=== PATIENT | male | born 1960 | race Caucasian/White ===

== ENCOUNTER 2023-03-20 12:01 | Outpatient (OUT) | payer OTHER, SELFPAY ==
[2023-03-20 13:12] LABS: Prostate Specific Antigen Dx 1.83 ng/mL (<=4.00)
== END 2023-03-20 12:02 | disposition home or self-care (01) ==
LOC: LAB 12:06
PROVIDERS: PCP Internal Medicine
DX: R97.20 Elevated prostate specific antigen [PSA] (principal)
CPT/HCPCS: 36415; 84153

== ENCOUNTER 2023-07-19 08:10 | Outpatient (OUT) | payer OTHER, SELFPAY ==
[2023-07-19 08:32] LABS: Basophils Percent Auto 0.6 % (0.2-2.0); Eosinophils Absolute Auto 0.2 10^3/uL (0.0-0.7); Eosinophils Percent Auto 3.2 % (0.9-7.0); Hematocrit 44.7 % (42.0-54.0); Hemoglobin 15.3 g/dL (14.0-18.0); Immature Granulocytes Abs Auto 0.01 10^3/uL (0.00-0.03); Immature Granulocytes Pct Auto 0.2 % (0.0-0.5); Lymphocytes Absolute Auto 2.2 10^3/uL (1.2-3.8); Lymphocytes Percent Auto 41.3 % (20.5-60.0); Mean Corpuscular HGB Conc 34.2 g/dL (29.9-35.2); Mean Corpuscular Hemoglobin 32.4 pg (25.9-34.0); Mean Corpuscular Volume 94.7 fL (80.0-94.0); Mean Platelet Volume 10.2 fL (9.5-13.5); Monocytes Absolute Auto 0.5 10^3/uL (0.3-0.8); Monocytes Percent Auto 9.9 % (1.7-12.0); Neutrophils Absolute Auto 2.4 10^3/uL (1.4-6.5); Neutrophils Percent Auto 44.8 % (43.0-75.0); Platelet Count 210 10^3/uL (150-450); Red Blood Count 4.72 10^6/uL (4.70-6.10); Red Cell Distribution Width 13.1 % (11.0-15.0); White Blood Count 5.4 10^3/uL (4.0-11.0)
[2023-07-19 09:07] LABS: Alanine Aminotransferase 40 U/L (16-63); Albumin Level 3.6 g/dL (3.4-5.0); Alkaline Phosphatase 83 U/L (46-116); Anion Gap 11.1; Aspartate Amino Transferase 15 U/L (15-37); BUN Creatinine Ratio 16.7; Bilirubin Total 1.5 mg/dL (0.2-1.0); Calcium 8.9 mg/dL (8.5-10.1); Carbon Dioxide 29.8 mmol/L (21.0-32.0); Chloride 102 mmol/L (98-107); Chol HDL Ratio 2.8; Cholesterol 151 mg/dL (<=200); Estimated GFR (African America >60 (>=60); Estimated GFR (Non-African Ame >60 (>=60); Globulin 3.7 g/dL; Glucose 106 mg/dL (74-106); HDL Cholesterol 54 mg/dL (40-60); LDL Cholesterol Calculated 74.2 mg/dL; Potassium 3.9 mmol/L (3.5-5.1); Sodium 139 mmol/L (136-145); Total Protein 7.3 g/dL (6.4-8.2); Triglycerides 114 mg/dL (<=150); VLDL CHOLESTEROL 22.8 mg/dL
== END 2023-07-19 08:11 | disposition home or self-care (01) ==
PROVIDERS: PCP Internal Medicine; Visit Provider Internal Medicine
DX: Z00.00 Encounter for general adult medical examination without abnormal findings (principal)
CPT/HCPCS: 36415; 80053; 80061; 85025; G0103

== ENCOUNTER 2024-03-19 12:15 | Outpatient (OUT) | payer OTHER, SELFPAY ==
--- OUTSIDE RECORDS SUMMARY | 2024-03-19 12:21 | XMS_ITS | CCD ---
Author Organization [facility] Care Team Providers Care Traffic Supervisor Name Role Phone Denise Salas Unavailable CHUCK, DR CLARK Admitting Unavailable BALL, DR CLARK Primary Care Unavailable BALL, DR CLARK Consulting Unavailable BALL, DR CLARK Attending Unavailable ELIN, DR DARIO Munson Consulting Unavailable CHUCK, DR CLARK Admitting Unavailable BALL, DR CLARK Primary Care Unavailable CHUCK, DR CLARK Consulting Unavailable BALL, DR CLARK Attending Unavailable HARDING, DR MCCLOUD Admitting Unavailable HARDING, DR MCCLOUD Consulting Unavailable HARDING, DR MCCLOUD Attending Unavailable BALL, DR CLARK Primary Care Unavailable CHUCK, DR CLARK Attending Unavailable BALL, DR CLARK Admitting Unavailable CHUCK, DR CLARK Primary Care Unavailable DO Satish Woods Primary Care Provider DENZEL Salas-C Denise Hudson Attending Provider Satish Woods Unavailable SATISH WOODS Primary Care Physician Jonathan HARDING Attending Unavailable Jonathan HARDING Attending Unavailable Roldan Lowery Unavailable DO Satish Woods Primary Care Provider [phone] MD Alex Blevins Attending Provider [phone] DO Satish Woods Primary Care Provider [phone] MD Alex Blevins Attending Provider [phone] Alex Blevins Attending Unavailable Alex Blevins Admitting Unavailable Satish Woods Primary Care Unavailable Tyler Tejada Admitting Unavailabl e Satish Woods Primary Care Unavailable Tyler Tejada Attending Unavailabl e Allergies Allergy Classification Reported Allergen(s) Allergy Type Date of Onset Reaction(s) Facility (1 source) No Known Medication Allergies; Translations: [No Known Medication Allergies] Propensity to adverse reactions (disorder) [facility] Repository (1 source) patient allergy list reviewed by nurse or physicia Propensity to adverse reactions 5 Comment:Done [employer] Other Medications Current Medications Medication Drug Class(es) Dates Sig (Normalized) Sig (Original) aspirin 81 mg oral tablet (14 sources) Platelet Aggregation Inhibitor, Nonsteroidal Anti-inflammatory Drug Start: 11-03-2020 take 81 mg by mouth once daily Aspirin Active 81 MG PO Daily November 03, 2020 1:00am Start: 02-07-2020 aspirin 81 mg Chew Tab mg tab(s), Chewed, Daily, Refills(s) 0 Start Date: 02/07/20 Status: Ordered atorvastatin 40 mg oral tablet (14 sources) HMG-CoA Reductase Inhibitor Start: 02-06-2020 take 40 mg by mouth once daily Atorvastatin Active 40 MG PO Daily November 03, 2020 1:00am citric acid 68.6 MG/ML / magnesium oxide 20 MG/ML / picosulfate sodium 0.0571 MG/ML Oral Solution [Clenpiq] (2 sources) Start: 08-15-2023 take 1 dose by mouth twice daily in the evening Clenpiq 10-3.5-12 MG-GM -GM/175ML 175 mL the first dose at 3:00 pm and 175 ml second dose at 9:00 pm Orally twice a day for 1 days PLEASE CHECK ALLERGIES Jul, Active clenpiq 10-3.5-12 mg-gm -gm/175ml solution (2 sources) Start: 08-15-2023 take 1 dose by mouth twice daily in the evening Clenpiq 10-3.5-12 MG-GM -GM/175ML 175 mL the first dose at 3:00 pm and 175 ml second dose at 9:00 pm Orally twice a day for 1 days PLEASE CHECK ALLERGIES Jul, Active eye vitamin (1 source) Start: 02-06-2020 eye vitamin ey e vitamin Start Date: 02/06/20 Status: Ordered Fish Oil + D3 7921-3486 MG-UNIT (9 sources) Start: 07-30-2020 take 1 capsule by mouth three times daily Fish Oil + D3 9644-7251 MG-UNIT 1 capsule Orally Three times a day Jul, Active Start: 07-30-2020 take 1 capsule by [facility] three times daily Fish Oil + D3 0184-6408 MG-UNIT 1 capsule Orally Three times a day for 30 day(s) Jul, Active Fish Oils (1 source) Start: 02-06-2020 Fish Oil Oral, Refill(s) 0 Start Date: 02/06/20 Status: Ordered ICaps - (9 sources) Start: 07-30-2020 ICaps - as dir ected Orally Jul, Active Gzrtp-7w-Bsz-Epa-Fish Oil-D3 (Fish Oil-Vit D3) 360 mg-1,200 mg -1,000 unit Capsule (4 sources) Start: 11-03-2020 take 1 capsule by mouth three times daily Fuapy-7b-Pqf-Epa-Fish Oil-D3 (Fish Oil-Vit D3) 360 mg-1,200 mg -1,000 unit Capsule Active 1 CAP PO Three times daily November 03, 2020 12:00am Start: 11-03-2020 take 1 capsule by [facility] three times daily Pnoen-1q-Rbv-Epa-Fish Oil-D3 (Fish Oil-Vit D3) 360 mg-1,200 mg -1,000 unit Capsule Active 1 CAP PO Three times daily November 03, 2020 1:00am Xkkn-D1-L-C-Xgjbyb-Weeyvtc-M in (Icaps) 3,069-1-795-75 vgzj-ql-pu-unit Tablet Extended Release (4 sources) Start: 11-03-2020 take 1 tablet by mouth once daily Qtxm-P7-M-E-Nahoot-Krmvetl-Min (Icaps) 3,375-0-982-75 owvr-bp-jb-unit Tablet Extended Release Active 1 TAB PO Daily November 03, 2020 12:00am Start: 11-03-2020 take 1 tablet by [facility] once daily Hfcv-E5-J-Q-Rovtzr-Yjiuful-Min (Icaps) 3,684-3-457-75 ptsx-yj-sc-unit Tablet Extended Release Active 1 TAB PO Daily November 03, 2020 1:00am Completed/Discontinued Medications Medication Drug Class(es) Dates Sig (Normalized) Sig (Original) clopidogrel 75 mg oral tablet (13 sources) P2Y12 Platelet Inhibitor Start: 11-03-2020 End: 09-21-2023 take 75 mg by mouth once daily Clopidogrel Discontinued 75 MG PO Daily 180 180 November 03, 2020 1:00am September 21, 2023 2:10pm Problems Active Problems Problem Classification Problem Date Documented Da te Episodic/Chronic Allergic reactions (1 source) Contact dermatitis due to plants; Translations: [Contact dermatitis and other eczema due to plants (except food)] Episodic Disorders of lipid metabolism (11 sources) Hyperlipidemia; Translations: [Mixed hyperlipidemia] Onset: 04-20-2016 02-06-2020 Chronic Essential hypertension (2 sources) Benign essential hypertension; Translations: [Essential hypertension, benign] Onset: 04-20-2016 Chronic Hyperplasia of prostate (7 sources) Benign prostatic hyperplasia without lower urinary tract symptoms; Translations: [Benign prostatic hypertrophy without outflow obstruction] Onset: 01-31-2017 Chronic Osteoarthritis (1 source) Arthritis 02-06-2020 Chronic Other acquired deformities (1 source) Contracture of left elbow joint; Translations: [Contracture, 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 Other acquired deformities (1 source) Contracture of right elbow joint; Translations: [Contracture, right elbow] Chronic Other aftercare (1 source) 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 Episodic Other circulatory disease (4 sources) Other specified symptoms and signs involving the circulatory and respiratory systems; Translations: [OTH SPEC SX SIGNS INVLV CIRC RS] Onset: 08-01-2022 Episodic Other circulatory disease (1 source) Cardiovascular symptoms; Translations: [Other specified symptoms and signs involving the circulatory and respiratory systems] Episodic Other circulatory disease (1 source) Elevated blood-pressure reading without diagnosis of hypertension; Translations: [Elevated blood-pressure reading, without diagnosis of hypertension] Episodic Other circulatory disease (1 source) Elevated blood-pressure reading, without diagnosis of hypertension Episodic Other connective tissue disease (1 source) Disorder of muscle; Translations: [Other specified disorders of muscle] Episodic Other nervous system disorders (1 source) Carpal tunnel syndrome; Translations: [Carpal tunnel syndrome, bilateral upper limbs] Chronic Other nervous system disorders (1 source) Paresthesia; Translations: [Paresthesia of skin] Episodic Other non-traumatic joint disorders (1 source) Arthralgia of the upper arm; Translations: [Pain in right elbow] Episodic Other nutritional; endocrine; and metabolic disorders (1 source) Obese class I; Translations: [Body mass index 33.0-33.9, adult] Onset: 11-23-2016 Chronic Other nutritional; endocrine; and metabolic disorders (2 sources) Body mass index 30+ - obesity; Translations: [Body mass index 30.0-30.9, adult] Onset: 11-23-2016 Chronic Other nutritional; endocrine; and metabolic disorders (2 sources) Obesity; Translations: [Obesity, unspecified] Onset: 11-23-2016 Chronic Other nutritional; endocrine; and metabolic disorders (1 source) Simple obesity ; Translations: [Other obesity due to excess calories] Chronic Other screening for suspected conditions (not mental disorders or infectious disease) (6 sources) Elevated prostate specific antigen [PSA]; Translations: [Raised prostate specific antigen] Onset: 03-02-2022 Episodic Peripheral and visceral atherosclerosis (20 sources) Intermittent claudication; Translations: [Peripheral vascular disease, unspecified] Onset: 12-02-2021 Resolved: 12-02-2021 Chronic Substance-related disorders (7 sources) Tobacco user; Translations: [Nicotine dependence, cigarettes, in remission] Chronic Unclassified (1 source) Drug therapy finding 02-07-2020 Unclassified (1 source) Encounter for screening for malignant neoplasm of colon; Translations: [Encounter for screening for malignant neoplasm of colon] Onset: 09-22-2023 Past or Other Problems Problem Classification Problem Date Documented Date Episodic/Chronic Bacterial infection; unspecified site (1 source) Streptococcus pyogenes infection; Translations: [Streptococcus infection in conditions classified elsewhere and of unspecified site, group A] Onset: 11-23-2016 Episodic Headache; including migraine (1 source) Headache; Translations: [Headache] Onset: 06-17-2017 Episodic Intracranial injury (1 source) Concussion with no loss of consciousness; Translations: [Concussion with no loss of consciousness] Onset: 06-16-2017 Episodic Joint disorders and dislocations; trauma-related (2 sources) Dislocations, sprains and strains involving multiple regions of lower limb(s); Translations: [Sprain and strain of unspecified site of knee and leg] Onset: 03-30-2015 Episodic Malaise and fatigue (1 source) Malaise and fatigue; Translations: [Other malaise and fatigue] Onset: 04-20-2016 Episodic Nonspecific chest pain (1 source) Chest pain; Translations: [Chest pain, unspecified] Onset: 04-20-2016 Episodic Other diseases of veins and lymphatics (1 source) Peripheral venous insufficiency; Translations: [Unspecified venous (peripheral) insufficiency] Onset: 04-20-2016 Episodic Other ear and sense organ disorders (1 source) Tinnitus; Translations: [Unspecified tinnitus] Onset: 06-17-2017 Episodic Other liver diseases (1 source) Elevated levels of transaminase & lactic acid dehydrogenase; Translations: [Nonspecific elevation of levels of transaminase or lactic acid dehydrogenase (LDH)] Onset: 08-28-2016 Episodic Other lower respiratory disease (1 source) Dyspnea; Translations: [Other dyspnea and respiratory abnormalities] Onset: 04-20-2016 Episodic Other non-traumatic joint disorders (1 source) Arthralgia of the lower leg; Translations: [Pain in joint, lower leg] Onset: 06-12-2015 Episodic Other nutritional; endocrine; and metabolic disorders (1 source) Abnormal weight gain; Translations: [Abnormal weight gain] Onset: 04-20-2016 Episodic Other skin disorders (1 source) Generalized hyperhidrosis; Translations: [Generalized hyperhidrosis] Onset: 04-20-2016 Episodic Other upper respiratory infections (1 source) Acute maxillary sinusitis; Translations: [Acute maxillary sinusitis] Onset: 11-23-2016 Episodic Otitis media and related conditions (1 source) Eustachian tube salpingitis; Translations: [Unspecified Eustachian salpingitis] Onset: 08-02-2018 Episodic Residual codes; unclassified (1 source) Edema; Translations: [Edema] Onset: 04-20-2016 Episodic Screening and history of mental health and substance abuse codes (3 sources) H/O: Disorder; Translations: [Personal history of nicotine dependence] Onset: 01-31-2017 Episodic Spondylosis; intervertebral disc disorders; other back problems (1 source) Brachial radiculitis; Translations: [Brachial neuritis or radiculitis NOS] Onset: 06-16-2017 Episodic Sprains and strains (1 source) Neck sprain; Translations: [Neck sprain and strain] Onset: 06-16-2017 Episodic Unclassified (1 source) Long-term current use of drug therapy; Translations: [Long-term (current) use of other medications] Onset: 06-19-2018 Results Test Name Value Interpretation Reference Range Facility Patient Education 03-24-20 Patient Education Urology Benign Prostatic Hyperplasia Benign prostatic hyperplasia (BPH) is an enlarged prostate gland that is caused by the normal aging process. The prostate may get bigger as a man gets older. The condition is not caused by cancer. The prostate is a walnut-sized gland that is involved in the production of semen. It is located in front of the rectum and below the bladder. The bladder stores urine. The urethra carries stored urine out of the body. An enlarged prostate can press on the urethra. This can make it harder to pass urine. The buildup of urine in the bladder can cause infection. Back pressure and infection may progress to bladder damage and kidney (renal) failure. What are the causes? This condition is part of the normal aging process. However, not all men develop problems from this condition. If the prostate enlarges away from the urethra, urine flow will not be blocked. If it enlarges toward the urethra and compresses it, there will be problems passing urine. What increases the risk? This condition is more likely to develop in men older than 50 years. What are the signs or symptoms? Symptoms of this condition include: ? Getting up often during the night to urinate. ? Needing to urinate frequently during the day. ? Difficulty starting urine flow. ? Decrease in size and strength of your urine stream. ? Leaking (dribbling) after urinating. ? Inability to pass urine. This needs immediate treatment. ? Inability to completely empty your bladder. ? Pain when you pass urine. This is more common if there is also an infection. ? Urinary tract infection (UTI). How is this diagnosed? This condition is diagnosed based on your medical history, a physical exam, and your symptoms. Tests will also be done, such as: ? A post-void bladder scan. This measures any amount of urine that may remain in your bladder after you finish urinating. ? A digital rectal exam. In a rectal exam, your health care provider checks your prostate by putting a lubricated, gloved finger into your rectum to feel the back of your prostate gland. This exam detects the size of your gland and any abnormal lumps or growths. ? An exam of your urine (urinalysis). ? A prostate specific antigen (PSA) screening. This is a blood test used to screen for prostate cancer. ? An ultrasound. This test uses sound waves to electronically produce a picture of your prostate gland. Your health care provider may refer you to a specialist in kidney and prostate diseases (urologist). How is this treated? Once symptoms begin, your health care provider will monitor your condition (active surveillance or watchful waiting). Treatment for this condition will depend on the severity of your condition. Treatment may include: ? Observation and yearly exams. This may be the only treatment needed if your condition and symptoms are mild. ? Medicines to relieve your symptoms, including: ? Medicines to shrink the prostate. ? Medicines to relax the muscle of the prostate. ? Surgery in severe cases. Surgery may include: ? Prostatectomy. In this procedure, the prostate tissue is removed completely through an open incision or with a laparoscope or robotics. ? Transurethral resection of the prostate (TURP). In this procedure, a tool is inserted through the opening at the tip of the penis (urethra). It is used to cut away tissue of the inner core of the prostate. The pieces are removed through the same opening of the penis. This removes the blockage. ? Transurethral incision (TUIP). In this procedure, small cuts are made in the prostate. This lessens the prostate's pressure on the urethra. ? Transurethral microwave thermotherapy (TUMT). This procedure uses microwaves to create heat. The heat destroys and removes a small amount of prostate tissue. ? Transurethral needle ablation (TUNA). This procedure uses radio frequencies to destroy and remove a small amount of prostate tissue. ? Interstitial laser coagulation (ILC). This procedure uses a laser to destroy and remove a small amount of prostate tissue. ? Transurethral electrovaporization (TUVP). This procedure uses electrodes to destroy and remove a small amount of prostate tissue. ? Prostatic urethral lift. This procedure inserts an implant to push the lobes of the prostate away from the urethra. Follow these instructions at home: ? Take gqgd-vtz-smqwned and prescription medicines only as told by your health care provider. ? Monitor your symptoms for any changes. Contact your health care provider with any changes. ? Avoid drinking large amounts of liquid before going to bed or out in public. ? Avoid or reduce how much caffeine or alcohol you drink. ? Give yourself time when you urinate. ? Keep all follow-up visits. This is important. Contact a health care provider if: ? You have unexplained back pain. ? Your symptoms do not get better with treatment. ? You develop side effects from the medicine (more content not included)... Normal [facility] Urology Office/Clinic Noteon 03-24-2023 Urology Office/Clinic Note Chief Complaint 1 yr fu HPI Staff 1 year f/u with PSA. Previous dx includes elevated PSA and BPH without obstruction. Current PSA done 03/20/23 is 1.83 and previous done 02/23/22 was 1.64. Negative TRUS BX done in January of 2018. Dysuria: no Incomplete bladder emptying: no Hematuria: no Frequency: no Urgency: no Nocturia: no Stream: good stream Leaking: no Post void dripping: no Wearing pads/ Depends: no Urge incontinence: no Stress incontinence: no Incontinence without Sensory Awareness: no Abdominal pain: no Flank pain: no Sexual complaints: no History of Present Illness Tests Reviewed: Reviewed UA, PSA I have reviewed the previous health record information and history for this patient from Dr Harding I have reviewed and verified the staff HPI to be accurate for this encounter. There have been no associated fever, chills, flank pain, or blood in the urine. Denies any urinary infections since last encounter. Review of Systems PHQ Score Initial Depression Screen Score: 0 ROS - Provider Constitutional: denies weight loss, denies hot flashes. Eyes: denies eye problems. Gastrointestinal: denies nausea, denies vomiting. Cardiovascular: denies chest pain or angina. Integumentary: no dryness Musculoskeletal: denies musculoskeletal symptoms. ENMT: denies otolaryngeal symptoms. Respiratory: no shortness of breath. Heme/Lymph: denies easy bleeding tendency, denies easy bruising tendency. Psychiatric: no confusion, no anxiety. Genitourinary: SEE HPI Physical Exam Vitals & Measurements HR: 68(Peripheral) BP: 129/90 HT: 71 in HT: 180.0 cm WT: 102.0 kg WT: 224.4 lb BMI: 31.48 General Appearance: alert, no distress, well nourished, well developed male. Genitourinary: normal scrotum, normal testes, normal urethra, normal epididymis, normal vas deferens/spermatic cord. Flank Pain: none. Bladder: nonpalpable. Prostate: normal prostate, estimated weight 50 gms, no hard nodule observed. Assessment/Plan 1. Elevated PSA (R97.20: Elevated prostate specific antigen [PSA]) PSA 03/20/23- 1.83. Slight increase from previous. Discussed possible reasoning could be subclinical infection in prostate at time of blood draw. S/P TRUS BX January 2018 SANDEEP did reveal enlarged prostate. Due to asymptomatic and PSA level will continue to monitor. 2. BPH without urinary obstruction (N40.0: Benign prostatic hyperplasia without lower urinary tract symptoms) Pt is currently taking no bladder/prostate medication and is highly satisfied with overall symptom control. No indication for treatment at this time. Continue to monitor. Former smoker (Z87.891: Personal history of nicotine dependence) Follow-up With When Contact Information NELLI NGUYEN, Jonathan Hudson, URL In 1 year [facility] [place] [id number]- Additional Instructions: w/PSA Patient Education Benign Prostatic Hyperplasia I, Shaina Reyes, personally scribed for Dr. Harding on 03/24/2023 09:33:36. . Documentation recorded by the scribe, Shaina Reyes, accurately reflects the services(s) I performed and decisions made by me. Authenticated by Dr. Harding on 03/24/2023 09:35:14. Problem List/Past Medical History Ongoing Anticoagulated Arthritis BPH without urinary obstruction Elevated PSA Former smoker Hyperlipidemia Historical No qualifying data Procedure/Surgical History TRUS (transrectal ultrasound) guided cryoablation of prostate (02/09/2018), Colonoscopy, Hernia repair, Tonsillectomy. Medications aspirin 81 mg Chew Tab, Chewed, Daily atorvastatin, 40 mg, Oral, Daily eye vitamin Fish Oil, Oral Allergies No Known Medication Allergies Social History Tobacco Former smoker, quit more than 30 days ago Tobacco Use:., 03/24/2023 Former smoker, quit more than 30 days ago Tobacco Use:., 03/02/2022 Family History Liver cancer: Brother. Immunizations Vaccine Date Status SARS-CoV-2 (COVID-19) mRNA BNT-162b2 vax 08/27/2021 Recorded SARS-CoV-2 (COVID-19) mRNA BNT-162b2 vax 11/27/2020 Recorded SARS-CoV-2 (COVID-19) mRNA BNT-162b2 vax 11/06/2020 Recorded Lab Results Test Name Test Result Date/Time PSA, External 1.83 ng/mL 03/20/2023 10:08 EDT PSA, External 1.86 ng/mL 01/06/2021 16:07 EDT Ambulatory Point of Care Results Bilirubin Urine Dipstick: Negative (03/24/23 08:46:00) Blood Urine Dipstick: Negative (03/24/23 08:46:00) Glucose Urine Dipstick: Negative (03/24/23 08:46:00) Ketones Urine Dipstick: Negative (03/24/23 08:46:00) Leukocytes Urine Dipstick: Negative (03/24/23 08:46:00) Nitrite Urine Dipstick: Negative (03/24/23 08:46:00) Protein Urine Dipstick: Negative (03/24/23 08:46:00) Specific [place] Urine Dipstick: 1.015 (03/24/23 08:46:00) Urine Appearance Urine Dipstick: Clear (03/24/23 08:46:00) Urine Color Urine Dipstick: Yellow (03/24/23 08:46:00) Urobilinogen Urine Dipstick: Normal 0.2-1 EU (more content not included)... Normal [facility] Comment on above: Result Comment: Elec tronically Signed By: Jonathan HARDING MD\\.br\\Date and Time Signed: 03/24/23 09:35 EDT\\.br\\Electronically Co-Signed By: Shaina Reyes MA\\.br\\Date and Time Co-Signed: 03/24/23 09:33 EDT Lab Reportson 03-23-2023 Lab Reports [id number]: 127 Normal [facility] US CAROTID ART BILon 022 US CAROTID ART BRI EXAMINATION: US [place] TID ART BRI HISTORY: Cardiovascular symptoms COMPARISON: No relevant comparison available. TECHNIQUE: Duplex Doppler ultrasound analysis of carotid and vertebral arteries. . Bilateral carotid arterial duplex examination was performed using B-mode, color flow and spectral analysis. Carotid stenosis is reported according to validated velocity parameters, similar to NASCET criteria. FINDINGS: RIGHT CAROTID ARTERY No atherosclerotic plaque Subclavian: PSV: 100.0 cm/s cm/s EDV: 8.2 cm/s cm/s CCA: Prox: PSV: 90.3 cm/s cm/s EDV: 22.4 cm/s cm/s Mid: PSV: 75.7 cm/s cm/s EDV: 20.8 cm/s cm/s Distal: PSV: 64.7 cm/s cm/s EDV: 14.2 cm/s cm/s BULB: PSV: 58.1 cm/s cm/s EDV: 20.8 cm/s cm/s ICA: Prox: PSV: 50.5 cm/s cm/s EDV: 15.6 cm/s cm/s Mid: PSV: 75.4 cm/s cm/s EDV: 30.3 cm/s cm/s Distal: PSV: 67.7 cm/s cm/s EDV: 27.0 cm/s cm/s ECA: PSV: 109.5 cm/s cm/s EDV: 25.4 cm/s cm/s VERTEBRAL: PSV: 43.3 cm/s cm/s EDV: 12.7 cm/s cm/s ICA/CCA ratio: PSV: 1.2 EDV: 2.1 LEFT CAROTID ARTERY No atherosclerotic plaque Subclavian: PSV: 159.3 cm/s cm/s EDV: 7.9 cm/s CCA: Prox: PSV: 93.1 cm/s cm/s EDV: 30.0 cm/s Mid: PSV: 82.3 cm/s cm/s EDV: 26.7 cm/s Distal: PSV: 64.2 cm/s cm/s EDV: 21.5 cm/s BULB: PSV: 57.2 cm/s cm/s EDV: 18.8 cm/s ICA: Prox: PSV: 51.1 cm/s cm/s EDV: 22.3 cm/s Mid: PSV: 72.9 cm/s cm/s EDV: 30.2 cm/s Distal: PSV: 66.8 cm/s cm/s EDV: 27.6 cm/s ECA: PSV: 72.9 cm/s cm/s EDV: 19.7 cm/s VERTEBRAL: PSV: 28.4 cm/s cm/s EDV: 14.5 cm/s ICA/CCA ratio: PSV: 1.1 EDV: 1.4 IMPRESSION: Normal exam. 0-49% flow stenosis bilateral internal carotid arteries Spectral Doppler US Thresholds (Reference: Flavio EG, et al. Radiology 2000; [id number]) Stenosis (%) PSV (cm/sec) VICA/VCCA 0-49 <150 <2.5 50-69 150-225 2.5-4.0 >70 >225 >4.0 Electronically authenticated by: DARIO WORTHINGTON Date: 2022-08-01 17:14 Normal [facility] CBC AUTO DIFFon 07-14-2022 BASO # 0.0 103/ul Normal 0.0-0.1 [facility] Comment on above: Performed By: #### C BC #### [facility] [address] [place] [address] Dr. Krystle Caballero Basophils/100 WBC (Bld) 0.5 % Normal 0.2-2.0 [facility] Comment on above: Performed By: #### C BC #### [facility] [address] [place] [address] Dr. Krystle Caballero EO # 0.2 103/ul Normal 0.0-0.7 [facility] Comment on above: Performed By: #### C BC #### [facility] [address] [place] [address] Dr. Krystle Caballero Eosinophils/100 WBC (Bld) 3.0 % Normal 0.9-7.0 [facility] Comment on above: Performed By: #### C BC #### [facility] [address] [place] [address] Dr. Krystle Caballero Erythrocyte distribution width (RBC) [Ratio] 12.8 % Normal 11.0-15.0 [facility] Comment on above: Performed By: #### C BC #### [facility] [address] [place] [address] Dr. Krystle Caballero Hematocrit (Bld) [Volume fraction] 47.7 % Normal 42.0-54.0 [facility] Comment on above: Performed By: #### C BC #### [facility] [address] [place] [address] Dr. Krystle Caballero Hemoglobin (Bld) [Mass/Vol] 16.2 g/dL Normal 14.0-18.0 [facility] Comment on above: Performed By: #### C BC #### [facility] [address] [place] [address] Dr. Krystle Caballero IG # 0.01 10e3/ul Normal 0.00-0.03 [facility] Comment on above: Performed By: #### C BC #### [facility] [address] [place] [address] Dr. Krystle Caballero IG % 0.2 % Normal 0.0-0.5 [facility] Comment on above: Performed By: #### C BC #### [facility] [address] [place] [address] Dr. Krystle Caballero LYMPH # 2.3 103/ul Normal 1.2-3.8 [facility] Comment on above: Performed By: #### C BC #### [facility] [address] [place] [address] Dr. Krystel Caballero Lymphocytes/100 WBC (Bld) 38.1 % Normal 20.5-60.0 [facility] Comment on above: Performed By: #### C BC #### [facility] [address] [place] [address] Dr. Krystle Caballero MANUAL DIFF REQ NO Normal [facility] Comment on above: Performed By: #### C BC #### [facility] [address] [place] [address] Dr. Krystle Caballero MCH (RBC) [Entitic mass] 32.4 pg Normal 25.9-34.0 [facility] Comment on above: Performed By: #### C BC #### [facility] [address] [place] [address] Dr. Krystle Caballero MCHC (RBC) [Mass/Vol] 34.0 g/dL Normal 29.9-35.2 [facility] Comment on above: Performed By: #### C BC #### [facility] [address] [place] [address] Dr. Krystle Caballero MCV (RBC) [Entitic vol] 95.4 fL Critically high 80.0-94.0 [facility] Comment on above: Performed By: #### C BC #### [facility] [address] [place] [address] Dr. Krystle Caballero MONO # 0.6 103/ul Normal 0.3-0.8 [facility] Comment on above: Performed By: #### C BC #### [facility] [address] [address] [address] Krystle Caballero Monocytes/100 WBC (Bld) 9.6 % Normal 1.7-12.0 [facility] Comment on above: Performed By: #### C BC #### [facility] [address] [place] [address] Dr. Krystle Caballero NEUT # 2.9 103/ul Normal 1.4-6.5 [facility] Comment on above: Performed By: #### C BC #### [facility] [address] [place] [address] Dr. Krystle Caballero Neutrophils/100 WBC (Bld) 48.6 % Normal 43.0-75.0 [facility] Comment on above: Performed By: #### C BC #### [facility] [address] [place] [address] Dr. Krystle Caballero Platelet mean volume (Bld) [Entitic vol] 10.0 fL Normal 9.5-13.5 [facility] Comment on above: Performed By: #### C BC #### [facility] [address] [place] [address] Dr. Krystle Caballero PLT 219 103/ul Normal 150-450 [facility] Comment on above: Performed By: #### C BC #### [facility] [address] [place] [address] Dr. Krystle Caballero RBC 5.00 106/ul Normal 4.70-6.10 [facility] Comment on above: Performed By: #### C BC #### [facility] [address] [place] [address] Dr. Krystle Caballero WBC 6.0 103/ul Normal 4.0-11.0 [facility] Comment on above: Performed By: #### C BC #### [facility] [address] [address] [address] Krystle Caballero LIPID PROFILEon 07-14-2022 CHOL-HDL RATIO NORM SEE BELOW Normal [facility] Comment on above: Result Comment: 3.3 - 4.4 LOW RISK 4.4 - 7.1 AVERAGE RISK 7.1 - 11.0 MODERATE RISK >11.0 HIGH RISK Performed By: #### L IPID, CMP #### [facility] [address] [place], [place] [address] Dr. Krystle Caballero Cholesterol [Mass/Vol] 157 mg/dL Normal <=200 [facility] Comment on above: Performed By: #### L IPID, CMP #### [facility] [address] [address] [address] Krystle Caballero Cholesterol in HDL [Mass/Vol] 49 mg/dL Normal 40-60 [facility] Comment on above: Performed By: #### L IPID, CMP #### [facility] [address] [address] [address] Krystle Caballero Cholesterol in LDL [Mass/Vol] 81.8 mg/dL Normal [facility] Comment on above: Performed By: #### L IPID, CMP #### [facility] [address] [place], [place] [address] Dr. Krystle Caballero Cholesterol.total/ Cholesterol in HDL [Mass ratio] 3.2 {ratio} Normal [facility] Comment on above: Performed By: #### L IPID, CMP #### [facility] [id number] Krystle Caballero HDL NORMAL > or = 60 mg/dl - LO W CARDIOVASCULAR RISK <40 mg/dl - HIGH CARDIOVASCULAR RISK Normal [facility] Comment on above: Performed By: #### L IPID, CMP #### [facility] [id number] Krystle Caballero LDL CALC NORMAL SEE BELOW Normal [facility] Comment on above: Result Comment: <100 mg/dl OPTIMAL 100 - 129 mg/dl NEAR OR ABOVE OPTIMAL 130 - 159 mg/dl BORDERLINE HIGH 160 - 189 mg/dl HIGH >190 mg/dl VERY HIGH Performed By: #### L IPID, CMP #### [facility] [address] [place] [address] Dr. Krystle Caballero Triglyceride [Mass/Vol] 131 mg/dL Normal <=150 [facility] Comment on above: Performed By: #### L IPID, CMP #### [facility] [address] [place] [address] Dr. Krystle Caballero VLDL CALC 26.2 mg/dL Normal [facility] Comment on above: Performed By: #### L IPID, CMP #### [facility] [address] [place] [address] Dr. Krystle Caballero PROF 14(COMP METB)on 022 Albumin [Mass/Vol] 3.9 g/dL Normal 3.4-5.0 [facility] Comment on above: Performed By: #### L IPID, CMP #### [facility] [address] [place] [address] Dr. Krystle Caballero Albumin/Globulin [Mass ratio] 1.1 {ratio} Normal [facility] Comment on above: Performed By: #### L IPID, CMP #### [facility] [address] [place] [address] Dr. Krystle Caballero ALP [Catalytic activity/Vol] 91 U/L Normal 46-116 [facility] Comment on above: Performed By: #### L IPID, CMP #### [facility] [address] [place] [address] Dr. Krystle Caballero ALT [Catalytic activity/Vol] 44 U/L Normal 16-63 [facility] Comment on above: Performed By: #### L IPID, CMP #### [facility] [address] [place] [address] Dr. Krystle Caballero Anion gap [Moles/Vol] 10.0 mmol/L Normal [facility] Comment on above: Performed By: #### L IPID, CMP #### [facility] [address] [place] [address] Dr. Krystle Caballero AST [Catalytic activity/Vol] 14 U/L Critically low 15-37 [facility] Comment on above: Performed By: #### L IPID, CMP #### [facility] [address] [place] [address] Dr. Krystle Caballero Bilirubin [Mass/Vol] 0.9 mg/dL Normal 0.2-1.0 [facility] Comment on above: Performed By: #### L IPID, CMP #### [facility] [address] [place] [address] Dr. Krystle Caballero Calcium [Mass/Vol] 9.4 mg/dL Normal 8.5-10.1 [facility] Comment on above: Performed By: #### L IPID, CMP #### [facility] [address] [place] [address] Dr. Krystle Caballero Chloride [Moles/Vol] 102 mmol/L Normal 98-107 [facility] Comment on above: Performed By: #### L IPID, CMP #### [facility] [address] [place] [address] Dr. Krystle Caballero CO2 [Moles/Vol] 31.4 mmol/L Normal 21.0-32.0 [facility] Comment on above: Performed By: #### L IPID, CMP #### [facility] [address] [place] [address] Dr. Krystle Caballero Creatinine [Mass/Vol] 0.90 mg/dL Normal 0.70-1.30 [facility] Comment on above: Performed By: #### L IPID, CMP #### [facility] [address] [place] [address] Dr. Krystle Caballero EGFR-AF ECUADOREAN >60 Normal >=60 [facility] Comment on above: Performed By: #### L IPID, CMP #### [facility] [address] [place] [address] Dr. Krystle Caballero EGFR-NON AF ECUADOREAN >60 Normal >=60 [facility] Comment on above: Performed By: #### L IPID, CMP #### [facility] [address] [place] [address] Dr. rKystle Caballero Globulin (S) [Mass/Vol] 3.7 g/dL Normal [facility] Comment on above: Performed By: #### L IPID, CMP #### [facility] [address] [place] [address] Dr. Krystle Caballero Glucose [Mass/Vol] 104 mg/dL Normal 74-106 [facility] Comment on above: Performed By: #### L IPID, CMP #### [facility] [address] [place] [address] Dr. Krystle Caballero Potassium [Moles/Vol] 4.4 mmol/L Normal 3.5-5.1 [facility] Comment on above: Performed By: #### L IPID, CMP #### [facility] [address] [place] [address] Dr. Krystle Caballero Protein [Mass/Vol] 7.6 g/dL Normal 6.4-8.2 [facility] Comment on above: Performed By: #### L IPID, CMP #### [facility] [address] [place] [address] Dr. Krystle Caballero Sodium [Moles/Vol] 139 mmol/L Normal 136-145 [facility] Comment on above: Performed By: #### L IPID, CMP #### [facility] [address] [place] [address] Dr. Krystle Caballero Urea nitrogen [Mass/Vol] 19.0 mg/dL Critically high 7.0-18.0 [facility] Comment on above: Performed By: #### L IPID, CMP #### [facility] [address] [place] [address] Dr. Krystle Caballero Urea nitrogen/Creatinin e [Mass ratio] 21.1 mg/mg Normal [facility] Comment on above: Performed By: #### L IPID, CMP #### [facility] [address] [place] [address] Dr. Krystle Caballero Vital Signs Date Time Vital Sign Value Performing Clinician Facility 12-14-2023 10:50-0400 Body height 180.34 cm DO Satish Woods Work Phone: [facility] 12-14-2023 10:50-0400 Body mass index (BMI) [Ratio] 30.7 kg/m2 DO Satish Ball Work Phone: [facility] 12-14-2023 10:50-0400 Body temperature 97.5 [degF] DO Satish Ball Work Phone: [facility] 12-14-2023 10:50-0400 Body weight 99.79 kg DO Satish Ball Work Phone: [facility] 12-14-2023 10:50-0400 Diastolic blood pressure 68 mm[Hg] DO Satish Ball Work Phone: [facility] 12-14-2023 10:50-0400 Heart rate 70 /min DO Satish Ball Work Phone: [facility] 12-14-2023 10:50-0400 SaO2% (BldA) [Mass fraction] 96 % DO Satish Ball Work Phone: [facility] 12-14-2023 10:50-0400 Systolic blood pressure 138 mm[Hg] DO Satish Ball Work Phone: [facility] 09-22-2023 11:07-0500 Diastolic blood pressure 92 mm[Hg] DO Satish Ball Work Phone: [facility] 09-22-2023 11:07-0500 Heart rate 72 /min DO Satish Ball Work Phone: [facility] 09-22-2023 11:07-0500 Respiratory rate 18 /min DO Satish Ball Work Phone: [facility] 09-22-2023 11:07-0500 SaO2% (BldA) [Mass fraction] 97 % DO Satish Ball Work Phone: [facility] 09-22-2023 11:07-0500 Systolic blood pressure 131 mm[Hg] DO Satish Ball Work Phone: [facility] 09-22-2023 08:55-0500 Body height 180.34 cm DO Satish Ball Work Phone: [facility] 09-22-2023 08:55-0500 Body weight 99.79 kg DO Satish Ball Work Phone: [facility] 09-06-2023 11:41-0500 Body height 193.04 cm Satish Ball Other [place] [facility] Other 09-06-2023 11:41-0500 Diastolic blood pressure 84 mm[Hg] Satish Ball Other [facility] Other 09-06-2023 11:41-0500 Systolic blood pressure 128 mm[Hg] Satish Ball Other [place] [facility] Other 08-15-2023 11:40-0500 Body height 193.04 cm Satish Ball Other [facility] Other 08-15-2023 11:40-0500 Diastolic blood pressure 84 mm[Hg] Satish Ball Other [facility] Other 08-15-2023 11:40-0500 Systolic blood pressure 132 mm[Hg] Satish Ball Other [facility] Other 07-25-2023 10:00-0400 Body height 193.04 cm Satish Ball Other [facility] Other 07-25-2023 10:00-0400 Body mass index (BMI) [Ratio] 27.04 kg/m2 Satish Ball Other [facility] Other 07-25-2023 10:00-0400 Body weight 100.79 kg Satish Ball Other [facility] Other 07-25-2023 10:00-0400 Diastolic blood pressure 90 mm[Hg] Satish Ball Other [facility] Other 07-25-2023 10:00-0400 Respiratory rate 16 /min Satish Ball Other [facility] Other 07-25-2023 10:00-0400 Systolic blood pressure 150 mm[Hg] Satish Ball Other [facility] Other 03-24-2023 08:41-0400 Blood Pressure Location Jonathan HARDING [facility] 03-24-2023 08:41-0400 Diastolic blood pressure 90 mm[Hg] Jonathan HARDING [facility] 03-24-2023 08:41-0400 Heart rate 68 /min Jonathan HARDING [facility] 03-24-2023 08:41-0400 Systolic blood pressure 129 mm[Hg] Jonathan HARDING [facility] 12-08-2022 11:45-0400 Body height 193.04 cm Denise Salas Other [facility] Other 12-08-2022 11:45-0400 Body mass index (BMI) [Ratio] 26.78 kg/m2 Denise Salas Other [facility] Other 12-08-2022 11:45-0400 Body temperature 97.7 [degF] Denise Salas Other [facility] Other 12-08-2022 11:45-0400 Body weight 99.79 kg Denise Salas Other [facility] Other 12-08-2022 11:45-0400 Diastolic blood pressure 90 mm[Hg] Denise Pierreo Other [facility] Other 12-08-2022 11:45-0400 SaO2% (BldA) [Mass fraction] 97 % Denise Pierreo Other [facility] Other 12-08-2022 11:45-0400 Systolic blood pressure 140 mm[Hg] Denise Pierreo Other [facility] Other 12-02-2021 10:45-0500 Body height 193.04 cm Denise Salas Other [facility] Other 12-02-2021 10:45-0500 Body mass index (BMI) [Ratio] 26.29 kg/m2 Denise Salas Other [facility] Other 12-02-2021 10:45-0500 Body temperature 98 [degF] Denise Salas Other [facility] Other 12-02-2021 10:45-0500 Body weight 97.98 kg Denise Salas Other [facility] Other 12-02-2021 10:45-0500 Diastolic blood pressure 82 mm[Hg] Denise Pierreo Other [facility] Other 12-02-2021 10:45-0500 SaO2% (BldA) [Mass fraction] 97 % Denise Pierreo Other [facility] Other 12-02-2021 10:45-0500 Systolic blood pressure 140 mm[Hg] Denise Danieltino Other [facility] Other Encounters Encounter Date Encounter Type Care Provider Facility Start: 03-25-2024 ambulatory Jonathan R NELLI Purvis ty:GREG Cullen Start: 12-14-2023 End: 12-14-2023 ambulatory Tyler Tejada Facility:[facility] Start: 12-14-2023 End: 12-14-2023 ambulatory DO Satish Woods Work Phone: [facility] Work Phone: Start: 12-14-2023 End: 12-14-2023 Patient encounter procedure DO Satish Woods Work Phone: [facility] Work Phone: Start: 09-29-2023 End: 09-29-2023 ambulatory Satish Woods Other [facility] Other Start: 09-29-2023 Telephone encounter 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 Perez [employer]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 Start: 09-22-2023 End: 09-22-2023 ambulatory Alex Blevins Facility:[facility] Start: 09-22-2023 End: 09-22-2023 Admission to same day surgery center DO Satish Woods Work Phone: [facility] Work Phone: Start: 09-22-2023 End: 09-22-2023 ambulatory DO Satish Woods Work Phone: [facility] Work Phone: Start: 09-06-2023 End: 09-06-2023 ambulatory Satish Woods Other [facility] Other Start: 09-06-2023 Telephone encounter [facility] Start: 08-15-2023 End: 08-15-2023 ambulatory Satish Woods Other [facility] Other Start: 08-15-2023 Telephone encounter [facility] Start: 08-11-2023 End: 08-11-2023 ambulatory Roldan Lowery Other [facility] Other Start: 08-11-2023 Telephone encounter Roldan Bautista ck [facility] 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 Start: 07-25-2023 End: 07-25-2023 ambulatory Satish Woods Other [facility] Other Start: 07-25-2023 Encounter for genera l adult medical examination without abnormal findings Satish Woods [facility] Start: 07-25-2023 Periodic preventive med est patient 40-64yrs Satish Woods [facility] Start: 07-17-2023 End: 07-17-2023 ambulatory Satish Woods Other [facility] Other Start: 07-17-2023 Encounter for genera l adult medical examination without abnormal findings Satish Woods [facility] Start: 07-17-2023 Telephone encounter Satish LEGER [facility] Start: 03-24-2023 End: 03-25-2023 ambulatory Jonathan HARDING Facility:[facility] Start: 03-24-2023 End: 03-24-2023 Patient encounter procedure Jonathan HARDING [facility] Start: 03-21-2023 End: 03-21-2023 ambulatory Satish Woods Other [facility] Other Start: 03-21-2023 Telephone encounter Satish LEGER [facility] Start: 12-08-2022 Follow-up encounter Denise Meng [facility] Start: 12-08-2022 End: 12-08-2022 ambulatory DO Satish Woods Work Phone: [facility] Work Phone: Start: 12-08-2022 End: 12-08-2022 Patient encounter procedure DO Satish Woods Work Phone: [facility] [place] Work Phone: Start: 08-01-2022 End: 08-02-[address] SATISH WOODS Facility:[facility] Start: 07-21-2022 Adult health examination Satish Woods Other [facility] Other Start: 07-20-2022 Encounter for genera l adult medical examination without abnormal findings DR SATISH WOODS [facility] Start: 07-14-2022 End: 07-15-[address] SATISH WOODS Facility:[facility] Start: 07-14-2022 End: 07-15-2022 Encounter for general adult medical examination without abnormal findings DR SATISH WOODS Facility:[facility] Start: 03-03-[address] SATISH WOODS Facili ty:[facility] Start: 02-23-2022 End: 02-24-[address] JONATHAN HARDING Facility:[facility] Start: 12-02-2021 End: 12-02-2021 ambulatory Denise Salas Other [facility] [employer] Other Start: 12-02-2021 Office outpatient vi sit 15 minutes Denise Salas [facility] Procedures Date Procedure Procedure Detail Performing Clinician Start: 09-22-2023 Screening colonoscopy D O Satish Woods Work Phone: Start: 02-23-[address] CHICO WOODS Comment on above: Performed By: #### P SAD #### [facility] [address] [place] [address] Dr. Krystle Caballero Start: 02-09-2018 Ultrasonography guid ed transrectal cryoablation of prostate Jonathan HARDING Start: 06-16-2017 Aftercare Satish Gonzalez all Other Start: 01-31-2017 General examination of patient Satish Woods Other Colonoscopy Jonathan HARDING Depression screening [place] [facility] Other Hernia repair Jonathan NELLI Tonsillectomy Jonathan HARDING Plan of Treatment Date Care Activity Detail Author Start: 09-22-2023 [facility] Start: 03-16-2023 Ankle brachial press ure index [facility] Patient Education Hemorrhoids (DC) [facility] Work Phone: Immunizations Immunization Date Immunization Notes Care Provider Fa garland 08-27-2021 SARS-CoV-2 (COVID-19 ) mRNA BNT-162b2 vax Jonathan HARDING [facility] 11-27-2020 SARS-CoV-2 (COVID-19 ) mRNA BNT-162b2 vax Jonathan HARDING [facility] 11-06-2020 SARS-CoV-2 (COVID-19 ) mRNA BNT-162b2 vax Jonathan HARDING [facility] 10-08-2013 meningococcal oligosaccharide (groups A, C, Y and W-135) diphtheria toxoid conjugate vaccine (MCV4O) Satish Woods Other [facility] Payers Date Payer Category Payer Private Health Insurance [id number] Self-pay 1960 Unknown [id number] [id number] [id number] 1960 Unknown [id number] 2.16.84 [id number] 1959 Unknown [id number] 2.16.84 [id number] 1959 Unknown [id number] 2.16.84 [id number] 1959 Unknown [id number] 2.16.8 [id number] 1960 Unknown [id number] 2.16.8 [id number] Private Health Insurance [id number] Unknown [id number] Unknown [id number] 2.16.8 [id number] Unknown [id number] 2.16.8 [id number] Social History Date Type Detail Facility Sex Assigned At [facility] Start: 11-03-2020 Tobacco smoking stat us NHIS Current some day smoker [facility] Start: 1960 Sex Assigned At Male F [facility] Start: 03-24-2023 End: 09-22-2023 Tobacco smoking status Ex-smoker (finding) [facility] Medical Equipment Procedure Code Equipment Code Equipment Origin al Text Equipment Identifier Dates Multiple periphe ral artery stent, bare-metal [id number] FDA Start: 11-03-2020 Goals Date Patient Goal Desired Activity /State Functional Status Date Assessment Result Facility 03-24-2023 Functional Status N/A [facility] Clinical Notes 10-26-2020 to 09-22-2023 Note Date & Type Note Facility 09-22-2023 Procedure note [facility] 07-25-2023 Evaluation note Encounter Date Diagnosis Assessment Notes Jun, Wellness examination (ICD-10 - Z00.00) Healthy diet and exercise. Reviewed age-appropriate preventive testing recommended. Jun, Atherosclerosis of kake arteries of extremities with intermittent claudication, left leg (ICD-10 - I70.212) Walk daily, inspect feet daily for cuts. Continue secondary prevention measures f/u Vascular surgery Jun, Elevated cholesterol (ICD-10 - E78.00) Instructed on diet and exercise with continued statin therapy.Discussed the beneficial effects of lowering cholesterol in reducing the risk for cerebrovascular and cardiovascular disease. Jun, Nicotine dependence, cigarettes, in remission (ICD-10 - F17.211) Continue abstinence Jun, Elevated BP without diagnosis of hypertension (ICD-10 - R03.0) This patient is instructed to consume a healthy, low-fat, low-salt diet. They are also encouraged to continue exercise to achieve/maintain a normal BMI. Patient is instructed on home BP measurements: - rest for 5 minutes w/o talking- positioned w/ feet on floor and arm supported- average best 2/3 readings w/ goal < 135/85 Stop in after couple weeks for recheck Jun, Screening PSA (prostate specific antigen) (ICD-10 - Z12.5) Yearly SANDEEP and PSA w/ Reviewed PSA, < 4 and < 0.7 increase from previous results Jun, Colon cancer screening (ICD-10 - Z12.11) Asymptomatic, low risk patient. He denies change in appetite, weight or bowel habits. He denies heartburn or dysphagia He denies abdominal pain, melena or hematochezia. [facility] Other 10-23-2023 Evaluation note* Encounter Date Diagnosis Assessment Notes Treatment Notes Treatment Clinical Notes Jun, Elevated cholesterol (ICD-10 - E78.00) Jun, Wellness examination (ICD-10 - Z00.00) Jun, Atherosclerosis of kake arteries of extremities with intermittent claudication, left leg (ICD-10 - I70.212) Continue statin. Monitor BP closely. ASA 81mg daily. Walk frequently. Inspect feet daily for cuts and calluses. Jun, Screening PSA (prostate specific antigen) (ICD-10 - Z12.5) Jun, High risk medication use (ICD-10 - Z79.899) [facility] Other 06-30-2023 Hospital Discharge instructions Patient Education 03/24/2023 09:29:56 Benign Prostatic Hyperplasia Benign Prostatic Hyperplasia Benign prostatic hyperplasia (BPH) is an enlarged prostate gland that is caused by the normal agingprocess. The prostate may get bigger as a man gets older. The condition is not caused by cancer. The prostate is a walnut-sized gland that is involved in the production of semen. It is located in front of the rectum and below the bladder. The bladder stores urine. The urethra carries stored urine ou t of the body. An enlarged prostate can press on the urethra. This can make it harder to pass urine. The buildup of urine in the bladder can cause infection. Back pressure and infection may progress to bladder damage and kidney (renal) failure. What are the causes? This condition is part of the normal aging process. However, not all men develop problems from thiscondition. If the prostate enlarges away from the urethra, urine flow will not be blocked. If it enlarges toward the urethra and compresses it, there will be problems passing urine. What increases the risk? This condition is more likely to develop in men older than 50 years. What are the signs or symptoms? Symptoms of this condition include: Getting up often during the night to urinate. Needing to urinate frequently during the day. Difficulty starting urine flow. Decrease in size and strength of your urine stream. Leaking (dribbling) after urinating. Inability to pass urine. This needs immediate treatment. Inability to completely empty your bladder. Pain when you pass urine. This is more common if there is also an infection. Urinary tract infection (UTI). How is this diagnosed? This condition is diagnosed based on your medical history, a physical exam, and your symptoms. Tests will also be done, such as: A post-void bladder scan. This measures any amount of urine that may remain in your bladder after you finish urinating. A digital rectal exam. In a rectal exam, your health care provider checks your prostate by putting a lubricated, gloved finger into your rectum to feel the back of your prostate gland. This exam detects the size of your gland and any abnormal lumps or growths. An exam of your urine (urinalysis). A prostate specific antigen (PSA) screening. This is a blood test used to screen for prostate cancer. An ultrasound. This test uses sound waves to electronically produce a picture of your prostate gland. Your health care provider may refer you to a specialist in kidney and prostate diseases (urologist). How is this treated? Once symptoms begin, your health care provider will monitor your condition (active surveillance or watchful waiting). Treatment for this condition will depend on the severity of your condition. Treatment may include: Observation and yearly exams. This may be the only treatment needed if your condition and symptoms are mild. Medicines to relieve your symptoms, including: ?Medicines to shrink the prostate. ?Medicines to relax the muscle of the prostate. Surgery in severe cases. Surgery may include: ?Prostatectomy. In this procedure, the prostate tissue is removed completely through an open incision or with a laparoscope or robotics. ?Transurethral resection of the prostate (TURP). In this procedure, a tool is inserted through the opening at the tip of the penis (urethra). It is used to cut away tissue of the inner core of the prostate. The pieces are removed through the same opening of the penis. This removes the blockage. ?Transurethral incision (TUIP). In this procedure, small cuts are made in the prostate. This lessens the prostate's pressure on the urethra. ?Transurethral microwave thermotherapy (TUMT). This procedure uses microwaves to create heat. The heat destroys and removes a small amount of prostate tissue. ?Transurethral needle ablation (TUNA). This procedure uses radio frequencies to destroy and remove a small amount of prostate tissue. ?Interstitial laser coagulation (ILC). This procedure uses a laser to destroy and remove a small amount of prostate tissue. ?Transurethral electrovaporization (TUVP). This procedure uses electrodes to destroy and remove a small amount of prostate tissue. ?Prostatic urethral lift. This procedure inserts an implant to push the lobes of the prostate away from the urethra. Follow these instructions at home: Take [id number] and prescription medicines only as told by your health care provider. Monitor your symptoms for any changes. Contact your health care provider with any changes. Avoid drinking large amounts of liquid before going to bed or out in public. Avoid or reduce how much caffeine or alcohol you drink. Give yourself time when you urinate. Keep all follow-up visits. This is important. Contact a health care provider if: You have unexplained back pain. Your symptoms do not get better with treatment. You develop side effects from the medicine you are taking. Your urine becomes very dark or has a bad smell. Your lower abdomen becomes distended and you have trouble passing urine. Get help right away if: You have a fever or chills. You suddenly cannot urinate. You feel light-headed or very dizzy, or you faint. There are large amounts of blood or clots in your urine. Your urinary problems become hard to manage. You develop moderate to severe low back or flank pain. The flank is the side of your body between the ribs and the hip. These symptoms may be an emergency. Get help right away. Call 911. Do not wait to see if the symptoms will go away. Do not drive yourself to the hospital. Summary Benign prostatic hyperplasia (BPH) is an enlarged prostate that is caused by the normal aging process. It is not caused by cancer. An enlarged prostate can press on the urethra. This can make it hard to pass urine. This condition is more likely to develop in men older than 50 years. Get help right away if you suddenly cannot urinate. This information is not intended to replace advice given to you by your health care provider. Make sure you discuss any questions you have with your health care provider. Document Revised: 03/30/2022 Document Reviewed: 03/30/2022 [employer] Patient Education 2022 [employer]. Follow Up Care 03/02/2022 13:54:44 With:NELLI NGUYEN, Jonathan Hudson, URL Address: [address] [place], [place] [id number]- When:Within 1 Year(s) Comments:w/MATTHEW [facility] 03-16-2023 Evaluation note* Encounter Date Diagnosis Assessment Notes Treatment Notes Treatment Clinical Notes Nov, PAD (peripheral artery disease) (ICD-10 - I73.9) We reviewed today's noninvasive arterial testing which is normal today. He has no symptoms of claudication or ischemic rest pain. He is on good medical therapy with use of aspirin and statin medications daily. We will continue to follow along on a routine basis and have him back again next year with repeat studies. He knows to call us in the meantime with any issues or concerns. [facility] Other 03-10-2022 Evaluation note* Encounter Date Diagnosis Assessment Notes Treatment Notes Treatment Clinical Notes Nov, PAD (peripheral artery disease) (ICD-10 - I73.9) Mr. Nguyen has done well since his angioplasty in October 2020. We reviewed today's updated arterial studies and his ABIs today remain stable. We will continue him on the aspirin and statin medications. We will discontinue his Plavix at this time. We will continue to follow him on an annual with routine surveillance studies. He knows to call us in the meantime if he has any issues. He verbalizes understanding of all discussion, agrees with this plan, and denies any questions. [facility] Other 2021 History general Narrative - Reported* Type Description Date Medical History ATHEROSLEROSIS LEFT LEFT LEG Surgical History tonsillectomy Surgical History hernia repair X 2 Surgical History cyst removal RIGHT FOOT Surgical History LLE angioplasty and stent 1 Hospitalization History tonsillectomy [facility] Other 2021 History general Narrative - Reported* Type Description Date Medical History ATHEROSLEROSIS LEFT LEFT LEG Surgical History tonsillectomy Surgical History hernia repair X 2 Surgical History cyst removal RIGHT FOOT Surgical History LLE angioplasty and stent 1 Surgical History Colonoscopy 01/2013 Hospitalization History tonsillectomy [facility] Other 2021 History general Narrative - Reported* Type Description Date Medical History ATHEROSLEROSIS LEFT LEFT LEG Surgical History tonsillectomy Surgical History hernia repair X 2 Surgical History cyst removal RIGHT FOOT Surgical History LLE angioplasty and stent 1 Surgical History Colonoscopy 01/2013 Surgical History Colonoscopy 09/2022 Hospitalization History tonsillectomy [facility] Other Evaluation + Plan note Future Appointments Appointment Date:03/25/2024 08:45:00 AM Scheduled Provider:Jonathan HARDING MD Location:[facility] Appointment Type:URO Office Visit Diagnostic Tests Pending * PSA Total 03/24/23 [facility] evaluation noteNo assessment information available [facility] Work Phone: Evaluation noteNo [facility] Other evaluation note* Diagnosis Onset Date Resolution Status PAD (peripheral artery disease) acute [facility] Work Phone: History and physical note Author Alex Blevins [facility] September 22, 2023 10:19am Note Date/Time September 22, 2023 10:19am [facility] [address] [place] [address] Gastroenterology H&P Signed Patient: Bakari Hernandez MR#: [id number] : 1960 Acct:[id number] Age/Sex: 63 / M Adm Date: 3 Loc: Room: Type: [facility] Attending Dr: Alex Blevins MD Copies to: DO Alex Cunha MD~ Date of Service: 09/22/2023 HISTORY & PHYSICAL: Patient's history with special attention to the cardiovascular, pulmonary systems and the current problem was reviewed with the patient immediately prior to the procedure. Present medications and doses reviewed in the EMR. Allergies and pertinent laboratory tests were also reviewedat this time in the EMR. The physical examination, as below, was then performed. Indication, assessment and HPI: 63-year-old male presents for screening colonoscopy Family history of GI malignancy? No PHYSICAL EXAMINATION Mouth and Pharynx : Moist mucus membranes, normal dentition Cardiac: Regular rate, regular rhythm Pulmonary: Clear to auscultation bilaterally, no wheezing Neurological: Alert and oriented x3, no focal deficits noted Abdomen: Abdomen soft, non-tender REVIEW OF SYSTEMS Constitutional: Denies malaise, fevers Cardiovascular: Denies chest pain, palpitations Respiratory: Denies shortness of breath, wheezing Gastrointestinal: Per HPI Genitourinary: Denies dysuria, polyuria Musculoskeletal: Denies joint swelling, joint stiffness Neurological: Denies numbness, tingling Integumentary: Denies rashes, skin lesions Endocrine: Denies fatigue, weight loss Written informed consent obtained from the patient. Risks (including but not limited to perforation, infection, bloating, bleeding, need for emergent surgeryand loss of life), benefits and alternatives explained and questions answered. The patient verbalized understanding. Based on history patient is an appropriate candidate for the procedure. Alex Blevins MD Documented By: Alex Blevins MD 09/22/23 101 Signed By: <Electronically signed by Alex Blevins MD> 09/22/23 1019 [facility] Work Phone: Hospital course Narrative No data available for this section [facility] Hospital Discharge instructions Additional Instructions DISCHARGE INSTRUCTIONS FOR COLONOSCOPY WHAT TO EXPECT: - You may feel full, gassy or cramping after your procedure. In some cases, this may be from a few hours to a day. Walking may help relieve the discomfort. - If you have polyp(s) removed you may note some minor bloody discharge after your first bowel movements. - You should begin to recover from anesthesia within 1 hour of the procedure, however may feel groggy for the next 24 hours. DO's AND DON'Ts: - Call your doctor right away if you have a hard abdomen, severe pain, are passing lots of bright red blood or clots. - Call your doctor if you develop any rashes, hives or difficulty breathing. - Let your doctor know if you have not had a bowel movement by 3 days after your procedure. - If you take 81 mg aspirin for your heart it is safe to resume this medication. - If you take other blood thinner medications your doctor will instruct you when these can safely be resumed. - Do NOT drive for 24 hours. - Do NOT operate machinery such as power tools, lawn mowers, snow blowers, sewing machines, etc. for 24 hours. - Avoid alcoholic beverages and drugs for allergies, nerves, or sleep. - Do NOT stay alone. Do NOT leave your child unattended. - Do NOT make important personal or business decisions or sign any legal documents. - Eat solid foods and drink liquids in smaller amounts than usual until normal appetite returns. If you should experience an upset stomach, liquids high in sugar content (soda, Ángel-Aid, non-acid juices) are recommended. - You can resume normal activities tomorrow. FOLLOW UP & RECOMMENDATIONS: -Follow-up with Dr. Blevins as needed. -Notify the doctor if you have any problems. -Repeat colonoscopy in 10 years. -Follow up with PCP. -Office number [phone].[facility] Work Phone: Progress note No data available for this section [facility] Summary Purpose Family History No Family History Records Found Relationship Condition Age at Onset Recorded Date/T juan luis father Unknown Malignant neoplasm Unknown Not Specified Hypertension Unknown sister Malignant neoplasm of liver Unknown Unknown Advance Directives No Advanced Directives Records Found Advance Directive Response Recorded Date/ Time Advance Directives No November 02, 2020 5:14pm Advance Directive Response Recorded Date/ Time Advance Directives No November 02, 2020 4:14pm Chief Complaint and Reason for Visit Chief Complaint I70.213 Chief Complaint Screening Chief Complaint Screening 1 year follow up; PAD; DEQUAN's at 10:00am Chief Complaint Screening 1 year follow up; PAD; DEQUAN's at 10:00am Reason for Visit PAD (peripheral robin ry disease) Reason for Referral Reason *Waiting for appt Mr. Hernandez is being referred for screening colonoscopy, his last colonoscopy was in 2012. Diagnosis 1 Colon cancer screeni ng (Z12.11) Referral Organization [facility] Referring Provider First Name Satish Referring Provider Last Name Chuck Referring Provider Specialty Internal Me dicine Referred Organization [facility] Gastroenterolo gy Referred Provider Alex Blevins Referred Address [address] [facility] [address] ,[place], [place],[address] Referred Provider Specialty Gastroentero logy Referral Priority Routine General Notes Mr. Hernandez is an a symptomatic, low risk patient. He denies change in appetite, weight or bowel habits. He denies heartburn or dysphagia. He denies abdominal pain, melena or hematochezia. Geneva Weaver 07/25/2023 03:04:15 PM >received today, sent P2P Additional Source Comments REASON FOR VISIT (unrecogniz ed section and content) VASC 6 MONTH FU; DEQUAN'S BOTH LEGS FIRELANDS SAME MORNING1 YR FOLLOW UP; DEQUAN'S BOTH LEGS FIRELANDS 9:45ALab ResultsLabsWELLNESSMAIL PPWBP CheckBP readingGI OPERATIVE REPORT (unrecognized sect ion and content) No Status Records FoundNo Status Records FoundNo Status Records Found INFORMATION SOURCE (unrecogn ized section and content) DATE CREATED AUTHOR 09/17/2022 [facility] DATE CREATED AUTHOR AUTHOR'S ORGANIZ ATION 03/25/2023 [facility] DATE CREATED AUTHOR AUTHOR'S ORGANIZ ATION 12/26/2023 [facility] Care Teams (unrecognized sec tion and content) Team Status: Active Member Role Status Dates Satish Woods DO Primary Care Provider Active Team Status: Inactive Member Role Status Dates Satish Woods DO Primary Care Provider Active PHILLIP Desouza Attending Provider Active Team Status: Inactive Member Role Status Dates Satish Woods DO Primary Care Provider Active Alex Blevins MD Attending Provider Active Team Status: Inactive Member Role Status Dates Satish Woods DO Primary Care Provider Active Start: September 22, 2023 End: September 22, 2023 Alex Blevins MD Attending Provider Active S tart: September 22, 2023 End: September 22, 2023 Team Status: Inactive Member Role Status Dates Satish Woods DO Primary Care Provider Active Start: December 14, 2023 End: December 14, 2023 Tyler Tejada MD Attending Provider Active Start: December 14, 2023 End: December 14, 2023 Goals (unrecognized section and content) Goals may be documented in a n alternate section FOR RECORDS PERTAINING TO PATIENTS WHO ARE OR HAVE BEEN ENROLLED IN A CHEMICAL DEPENDENCY/SUBSTANCEABUSE PROGRAM, SOME INFORMATION MAY BE OMITTED. This clinical summary was aggregated from multiple sources. Caution should be exercised in using it in the provision of clinical care. This summary normalizes information from multiple sources, and as a consequence, information in this document may materially change the coding, format and clinical context of patient data. In addition, data may be omitted in some cases. CLINICAL DECISIONS SHOULD BE BASED ON THE PRIMARY CLINICAL RECORDS. [facility] [employer] [facility]. provides no warranty or guarantee of the accuracy or completeness of information in this document."
[2024-03-19 14:21] LABS: Prostate Specific Antigen Dx 1.55 ng/mL (<=4.00)
== END 2024-03-19 12:16 | disposition home or self-care (01) ==
LOC: LAB 12:17
PROVIDERS: PCP Internal Medicine; Visit Provider Urology
DX: N40.0 Benign prostatic hyperplasia without lower urinary tract symptoms (principal); R97.20 Elevated prostate specific antigen [PSA]
CPT/HCPCS: 36415; 84153

== ENCOUNTER 2024-08-07 09:20 | Outpatient (OUT) | payer MEDICARE, OTHER, SELFPAY ==
--- NOTE | 2024-08-07 09:27 | CT_ITS ---
The [address] [address] Patient Name: CHELE NATH MRN: [id number] date: 1960 Sex: M Assigned Patient Location: CT Current Patient Location: Accession/Order Number: [id number] Exam Date: 08/07/2024 09:38 Report Date: 08/08/2024 06:09 At the request of: EDUARDO DIAS Procedure: CT lung screening low-dose EXAMINATION: CT lung screening low-dose HISTORY: Former tobacco user COMPARISON: No relevant comparison available. TECHNIQUE: Axial, Coronal, and Sagittal images were created without the administration of IV contrast material. Dose reduction techniques were achieved by using automated exposure control and/or adjustment of mA and/or kV according to patient size and/or use of iterative reconstruction technique. FINDINGS: LUNGS: No visible pulmonary disease. PLEURA: No mass, effusion, or pneumothorax. VASCULATURE: No abnormality. KRISTI: Calcified left hilar lymph nodes suggestive chronic granulomatous disease. MEDIASTINUM: No mass or pathologic adenopathy. CARDIAC: No enlargement, pericardial thickening, or pericardial effusion. Coronary Artery calcifications: AORTA: No aneurysm or dissection. CHEST WALL: No mass or axillary adenopathy BONES: No bone lesion or fracture. LIMITED ABDOMEN: No suspicious findings. Limited images of the upper abdomen. OTHER: Negative. CT/CT lung screening low-dose IMPRESSION: 1. Lung-RADS Category 1 Negative. No nodules and definitely benign nodules. Continue annual screening with LDCT in 12 months. Electronically authenticated by: AMY GARCIA Date: 08/08/2024 06:09
--- OUTSIDE RECORDS SUMMARY | 2024-08-07 09:29 | XMS_ITS | CCD ---
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 Name Role Phone Denise Salas Unavailable CHUCK, DR CLARK Admitting Unavailable CHUCK, DR CLARK Primary Care Unavailable CHUCK, DR CLARK Consulting Unavailable CHUCK, DR CLARK Attending Unavailable ELIN, DR DARIO Munson Consulting Unavailable CHUCK, DR CLARK Admitting Unavailable CHUCK, DR CLARK Primary Care Unavailable CHUCK, DR CLARK Consulting Unavailable CHUCK, DR CLARK Attending Unavailable NELLI, DR MCCLOUD Admitting Unavailable NELLI, DR MCCLOUD Consulting Unavailable HARDING, DR MCCLOUD Attending Unavailable CHUCK, DR CLARK Primary Care Unavailable CHUCK, DR CLARK Attending Unavailable CHUCK, DR CLARK Admitting Unavailable CHUCK, DR CLARK Primary Care Unavailable DO Satish Woods Primary Care Provider [phone] PHILLIP Salas Attending Provider Satish Woods Unavailable SATISH WOODS Primary Care Physician Roldan Lowery Unavailable DO Satish Woods Primary Care Provider [phone] MD Alex Blevins Attending Provider [phone] DO Satish Woods Primary Care Provider [phone] MD Alex Blevins Attending Provider [phone] Alex Blevins Attending Unavailable Alex Blevins Admitting Unavailable Saitsh Woods Primary Care Unavailable Tyler Tejada Admitting UnavailSatish Le Primary Care Unavailable Tyler Tejada Attending UnavailJonathan Stack Attending Unavailable NIKO CARCAMO Attending Unavailable SATISH WOODS Referring Unavailable Allergies Allergy Classification Reported Allergen(s) Allergy Type Date of Onset Reaction(s) Facility (1 source) patient allergy list reviewed by nurse or physicia Propensity to adverse reactions 5 Comment:Done [email or web address] Other (1 source) No Known Medication Allergies; Translations: [No Known Medication Allergies] Propensity to adverse reactions (disorder) [facility] Repository Medications Current Medications Medication Drug Class(es) Dates Sig (Normalized) Sig (Original) aspirin 81 mg oral tablet (16 sources) Platelet Aggregation Inhibitor, Nonsteroidal Anti-inflammatory Drug Start: 11-03-2020 take 81 mg by mouth once daily Aspirin Active 81 MG PO Daily November 03, 2020 12:00am Start: 02-07-2020 aspirin 81 mg Chew Tab mg tab(s), Chewed, Daily, Refills(s) 0 Start Date: 02/07/20 Status: Ordered atorvastatin 40 mg oral tablet (17 sources) HMG-CoA Reductase Inhibitor Start: 07-04-2024 take 1 tablet by mouth once daily in the evening Atorvastatin Active 0 .ROUTE .COMPLEX 90 July 04, 2024 11:40am TAKE 1 TABLET BY MOUTH EVERY DAY IN THE EVENING Start: 02-06-2020 End: 07-04-2024 take 40 mg by mouth once daily Atorvastatin Discontinu ed 40 MG PO Daily November 03, 2020 12:00am July 04, 2024 11:41am citric acid 68.6 MG/ML / magnesium oxide [...] PLEASE CHECK ALLERGIES Jul, Active eye vitamin (2 sources) Start: 02-06-2020 eye vitamin ey e vitamin Start Date: 02/06/20 Status: Ordered Fish Oil + D3 0560-8670 MG-UNIT (9 sources) Start: 07-30-2020 take 1 capsule by mouth three times daily Fish Oil + D3 8692-6828 MG-UNIT 1 capsule Orally Three times a day Jul, Active Start: 07-30-2020 take 1 capsule by mo uth three times daily Fish Oil + D3 5845-4390 MG-UNIT 1 capsule Orally Three times a day for 30 day(s) Jul, Active Fish Oils (2 sources) Start: 02-06-2020 Fish Oil Oral, Refill(s) 0 Start Date: 02/06/20 Status: Ordered ICaps - (9 sources) Start: 07-30-2020 ICaps - as dir ected Orally Jul, Active Xqjtb-5b-Oar-Epa-Fish Oil-D3 (Fish Oil-Vit D3) 360 mg-1,200 mg -1,000 unit Capsule (5 sources) Start: 11-03-2020 take 1 capsule by mouth three times daily Rpgxp-6i-See-Epa-Fish Oil-D3 (Fish Oil-Vit D3) 360 mg-1,200 mg -1,000 unit Capsule Active 1 CAP PO Three times daily November 03, 2020 12:00am Start: 11-03-2020 take 1 capsule by [facility] three times daily Celjc-3l-Adb-Epa-Fish Oil-D3 (Fish Oil-Vit D3) 360 mg-1,200 mg -1,000 unit Capsule Active 1 CAP PO Three times daily November 03, 2020 1:00am omeprazole 40 mg delayed release oral capsule (1 source) Proton Pump Inhibitor Start: 07-30-2024 Omeprazole Active 40 MG PO Daily July 30, 2024 12:00am Take on empty stomach, 30 minutes prior to bkfst Eoad-W2-L-E-Lutein -Zeaxant-Min (Icaps) 3,585-7-820-75 dfir-go-oy-unit Tablet Extended Release (5 sources) Start: 11-03-2020 take 1 tablet by mouth once daily Yriv-A0-U-E-Lutein -Zeaxant-Min (Icaps) 3,175-1-209-75 mllm-wa-rw-unit Tablet Extended Release Active 1 TAB PO Daily November 03, 2020 12:00am Start: 11-03-2020 take 1 tablet by agueda th once daily Xpei-G1-Y-R-Gzeflu-Hjrxyyq-Min (Icaps) 3,617-1-962-75 afkc-jv-aq-unit Tablet Extended Release Active 1 TAB PO Daily November 03, 2020 1:00am Completed/Discontinued Medications Medication Drug Class(es) Dates Sig (Normalized) Sig (Original) clopidogrel 75 mg oral tablet (15 sources) P2Y12 Platelet Inhibitor Start: 07-30-2024 End: 07-30-2024 take 75 mg by mouth once daily Clopidogrel Discontinued 75 MG PO Daily July 30, 2024 12:00am July 30, 2024 10:38am Start: 11-03-2020 End: 09-21-2023 take 75 mg by mouth once daily Clopidogrel Discontinue d 75 MG PO Daily 180 180 November 03, 2020 12:00am September 21, 2023 1:10pm Problems Active Problems Problem Classification Problem Date Documented Da te Episodic/Chronic Allergic reactions (1 source) Contact dermatitis due to plants; Translations: [Contact dermatitis and other eczema due to plants (except food)] Episodic Disorders of lipid metabolism (14 sources) Hyperlipidemia; Translations: [Mixed hyperlipidemia] Onset: 04-20-2016 02-06-2020 Chronic Essential hypertension (2 sources) Benign essential hypertension; Translations: [Essential hypertension, benign] Onset: 04-20-2016 Chronic Hyperplasia of prostate (9 sources) Benign prostatic hyperplasia without lower urinary tract symptoms; Translations: [Benign prostatic hypertrophy without outflow obstruction] Onset: 01-31-2017 Chronic Osteoarthritis (2 sources) Arthritis 02-06-2020 Chronic Other acquired deformities (1 source) Contracture of left elbow joint; Translations: [Contracture, 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 Other acquired deformities (1 source) Contracture of right elbow joint; Translations: [Contracture, right elbow] Chronic Other aftercare (1 source) 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 Episodic Other circulatory disease [...] conditions (not mental disorders or infectious disease) (10 sources) Elevated prostate specific antigen [PSA]; Translations: [Raised prostate specific antigen] Onset: 03-02-2022 Episodic Peripheral and visceral atherosclerosis (20 sources) Intermittent claudication; Translations: [Peripheral vascular disease, unspecified] Onset: 12-02-2021 Resolved: 12-02-2021 Chronic Screening and history of mental health and substance abuse codes (4 sources) H/O: Disorder; Translations: [Personal history of nicotine dependence] Onset: 01-31-2017 Episodic Substance-related disorders (9 sources) Tobacco user; Translations: [Nicotine dependence, cigarettes, in remission] Chronic Unclassified (2 sources) Drug therapy finding 02-07-2020 Unclassified (1 source) [...] source) Edema; Translations: [Edema] Onset: 04-20-2016 Episodic Spondylosis; intervertebral disc disorders; other back problems (1 source) Brachial radiculitis; Translations: [Brachial neuritis or radiculitis NOS] Onset: 06-16-2017 Episodic Sprains and strains (1 source) Neck sprain; Translations: [Neck sprain and strain] Onset: 06-16-2017 Episodic Unclassified (1 source) Long-term current use of drug therapy; Translations: [Long-term (current) use of other medications] Onset: 06-19-2018 Results Test Name Value Interpretation Reference Range Facility Basophils Auto (Bld) [#/Vol] on 07-24-2024 Basophils (Bld) [#/Vol] 0.0 10 3/uL 0.0-0.1 [facility] Basophils/100 WBC Auto (Bld) on 07-24-2024 Basophils/100 WBC (Bld) 0.4 % 0.2-2.0 [facility] Cholesterol in LDL Calc [Mas s/Vol]on 07-24-2024 Cholesterol in LDL [Mass/Vol] 62.2 mg/dL [facility] Comment on above: <100 mg/dl [id number] 0-129 mg/dl NEAR OR ABOVE [id number] mg/dl BORDERLINE [id number] mg/dl HIGH>190 mg/dl VERY HIGH Cholesterol in VLDL Calc [Ma ss/Vol]on 07-24-2024 Cholesterol in VLDL [Mass/Vol] 23.8 mg/dL [facility] Eosinophils/100 WBC Auto (Bl d)on 07-24-2024 Eosinophils/100 WBC (Bld) 1.5 % 0.9-7.0 [facility] Erythrocyte distribution wid th Auto (RBC) [Ratio]on 07-24-2024 Erythrocyte distribution width (RBC) [Ratio] 12.6 % 11.0-15.0 [facility] Estimated glomerular filtrat ion rate (GFR) non- Americanon 07-24-2024 GFR/1.73 sq M.predicted among non-blacks MDRD (S/P/Bld) [Vol rate/Area] mL/min/{1.73_m2} >=60 mL/min/1.73m 2 [facility] Globulin Calc (S) [Mass/Vol] on 07-24-2024 Globulin (S) [Mass/Vol] 3.7 g/dL [facility] Hematocrit Auto (Bld) [Volum e fraction]on 07-24-2024 Hematocrit (Bld) [Volume fraction] 45.2 % 42.0-54.0 [facility] Hemoglobin [Mass/volume] in Bloodon 07-24-2024 Hemoglobin (Bld) [Mass/Vol] 15.7 g/dL 14.0-18.0 [facility] Laboratory - Chemistry and C hemistry - challengeon 07-24-2024 Albumin [Mass/Vol] 3.5 g/dL 3.4-5.0 [facility] ALP [Catalytic activity/Vol] 93 U/L 46-116 [facility] ALT [Catalytic activity/Vol] 46 U/L 16-63 [facility] AST [Catalytic activity/Vol] 19 U/L 15-37 [facility] Bilirubin [Mass/Vol] 1.2 mg/dL High 0.2-1.0 [facility] Calcium [Mass/Vol] 9.0 mg/dL 8.5-10.1 [facility] Chloride [Moles/Vol] 104 mmol/L 98-107 [facility] Cholesterol [Mass/Vol] 137 mg/dL <=200 [facility] Cholesterol in HDL [Mass/Vol] 51 mg/dL 40-60 [facility] Comment on above: > or =60 mg/dl - LOW CARDIOVASCULAR RISK<40 mg/dl - HIGH CARDIOVASCULAR RISK CO2 [Moles/Vol] 26.1 mmol/L 21.0-32.0 [facility] Creatinine [Mass/Vol] 0.88 mg/dL 0.70-1.30 [facility] GFR/1.73 sq M.predicted MDRD (S/P/Bld) [Vol rate/Area] mL/min/{1.73_m2} >=60 mL/min/1.73m 2 [facility] Glucose [Mass/Vol] 105 mg/dL 74-106 [facility] Potassium [Moles/Vol] 4.3 mmol/L 3.5-5.1 [facility] Protein [Mass/Vol] 7.2 g/dL 6.4-8.2 [facility] Sodium [Moles/Vol] 140 mmol/L 136-145 [facility] Triglyceride [Mass/Vol] 119 mg/dL <=150 [facility] Urea nitrogen [Mass/Vol] 15.0 mg/dL 7.0-18.0 [facility] Urea nitrogen/Creatinine [Mass ratio] 17.0 mg/mg [facility] Laboratory - Hematology and Cell countson 07-24-2024 Immature granulocytes/100 WBC (Bld) 0.3 % 0.0-0.5 [facility] Leukocytes [#/volume] correc keith for nucleated erythrocytes in Blood by Automated counon 07-24-2024 WBC corrected for nucl RBC Auto (Bld) [#/Vol] 7.5 10 3/uL 4.0-11.0 [facility] Lymphocytes Auto (Bld) [#/Vo l]on 07-24-2024 Lymphocytes (Bld) [#/Vol] 2.3 10 3/uL 1.2-3.8 [facility] Lymphocytes/100 WBC Auto (Bl d)on 07-24-2024 Lymphocytes/100 WBC (Bld) 30.3 % 20.5-60.0 [facility] MCH Auto (RBC) [Entitic mass ]on 07-24-2024 MCH (RBC) [Entitic mass] 32.8 pg 25.9-34.0 [facility] MCHC Auto (RBC) [Mass/Vol]on 07-24-2024 MCHC (RBC) [Mass/Vol] 34.7 g/dL 29.9-35.2 [facility] MCV Auto (RBC) [Entitic vol] on 07-24-2024 MCV (RBC) [Entitic vol] 94.4 fL High 80.0-94.0 [facility] Monocytes Auto (Bld) [#/Vol] on 07-24-2024 Monocytes (Bld) [#/Vol] 0.7 10 3/uL 0.3-0.8 [facility] Monocytes/100 WBC Auto (Bld) on 07-24-2024 Monocytes/100 WBC (Bld) 9.3 % 1.7-12.0 [facility] Neutrophils Auto (Bld) [#/Vo l]on 07-24-2024 Neutrophils (Bld) [#/Vol] 4.4 10 3/uL 1.4-6.5 [facility] Neutrophils/100 WBC Auto (Bl d)on 07-24-2024 Neutrophils/100 WBC (Bld) 58.2 % 43.0-75.0 [facility] No Panel Informationon 07-24 Eosinophils # (Auto) 0.1 10 3/uL 0.0-0.7 [facility] Immature Granulocyte # (Auto) 0.02 10 3/uL 0.00-0.03 [facility] Nucleated Red Blood Cells/100 WBC 0 [facility] Platelet mean volume Auto (B ld) [Entitic vol]on 07-24-2024 Platelet mean volume (Bld) [Entitic vol] 10.2 fL 9.5-13.5 [facility] Platelets Auto (Bld) [#/Vol] on 07-24-2024 Platelets (Bld) [#/Vol] 213 10 3/uL 150-450 [facility] RBC Auto (Bld) [#/Vol]on RBC (Bld) [#/Vol] 4.79 10 6/uL 4.70-6.10 [facility] Serum or plasma albumin/glob ulin mass ratioon 07-24-2024 Albumin/Globulin [Mass ratio] 0.9 {ratio} [facility] Serum or plasma anion gap de terminationon 07-24-2024 Anion gap [Moles/Vol] 14.2 mmol/L [facility] Serum or plasma total choles terol/high density lipoprotein (HDL) cholesterol mass ama 07-24-2024 Cholesterol.total/Cho lesterol in HDL [Mass ratio] 2.7 {ratio} [facility] Comment on above: 3.3 - 4.4 LOW RISK4. 4 - 7.1 AVERAGE RISK7.1 - 11.0 MODERATE RISK>11.0 HIGH RISK Urology Office/Clinic Noteon 03-25-2024 Urology Office/Clinic Note Urology Office/Clinic Note Chief Complaint BPH and elevated PSA HPI Staff Pt is here for 1 year F/U with PSA- Previous PSA- 03/20/23- 1.83 and PSA done 03/19/24 is 1.55 Previous DX; Elevated PSA, BPH Dysuria: no Incomplete bladder emptying: no Hematuria: no Frequency: no Urgency: no Nocturia: no Stream: good steady Leaking: no Post void dripping: no Wearing pads/ Depends: no Urge incontinence: no Stress incontinence: no Incontinence without Sensory Awareness: no Abdominal pain: no Flank pain: no Sexual complaints: no History of Present Illness Tests reviewed: reviewed UA, PSA I have reviewed the previous health record information and history for this patient from Dr. Harding. I have reviewed and verified the staff HPI to be accurate for this encounter. Review of Systems PHQ Score Initial Depression Screen Score: 0 SCORE ROS - Provider Constitutional: denies weight loss, denies hot flashes. Eyes: denies eye problems. Gastrointestinal: denies nausea, denies vomiting. Cardiovascular: denies chest pain or angina. Integumentary: no dryness Musculoskeletal: denies musculoskeletal symptoms. ENMT: denies otolaryngeal symptoms. Respiratory: no shortness of breath. Heme/Lymph: denies easy bleeding tendency, denies easy bruising tendency. Psychiatric: no confusion, no anxiety. Genitourinary: See HPI. Physical Exam Vitals & Measurements T: 37 ?C(Temporal Artery) HR: 75(Peripheral) RR: 16 BP: 129/83 HT: 71 in HT: 180 cm WT: 103.4 kg WT: 227.48 lb BMI: 31.91 General Appearance: alert, no distress, well nourished, well developed male. Assessment/Plan 1. Elevated PSA (R97.20: Elevated prostate specific antigen [PSA]) PSA 01/06/21 - 1.86 02/23/22 - 1.64 02/16/23 - 1.83 03/19/24 - 1.55 TRUS/bx 02/09/18 (PSA was 2.4). SANDEEP 03/24/23: 50g, benign PSA has decreased from prior. Educated pt on etiologies of PSA fluctuation. Follows with PCP annually. Will have PCP continue to monitor. 2. BPH without urinary obstruction (N40.0: Benign prostatic hyperplasia without lower urinary tract symptoms) UA today negative for blood and infection. Not currently taking any BPH meds. Not voicing any urinary habit complaints. Advised pt to increase water intake to prevent infection. Follow-up With When Contact Information NELLI NGUYEN, Jonathan Hudson, URL [facility] [address], [place] [address]- [phone] Additional Instructions: PRN Patient Education Prostate Cancer Screening I, Robyn Mcfadden, personally scribed for Dr. Harding on 03/25/2024 09:22:36. . Documentation recorded by the scribe, Robyn Mcfadden, accurately reflects the services(s) I performed and decisions made by me. Authenticated by Dr. Harding on 03/25/2024 09:33:03. Problem List/Past Medical History Ongoing Anticoagulated Arthritis [...] quit more than 30 days ago Tobacco Use:. Cigarettes, Household tobacco concerns: No. Yes, 03/25/2024 Former smoker, quit more than 30 days ago Tobacco Use:., 03/24/2023 Family History Liver cancer: Brother. Immunizations Vaccine Date Status SARS-CoV-2 (COVID-19) mRNA BNT-162b2 vax 08/27/2021 Recorded SARS-CoV-2 (COVID-19) mRNA BNT-162b2 vax 11/27/2020 Recorded SARS-CoV-2 (COVID-19) mRNA BNT-162b2 vax 11/06/2020 Recorded Lab Results Ambulatory Point of Care Results Bilirubin Urine Dipstick: Negative (03/25/24 09:00:00) Blood Urine Dipstick: Negative (03/25/24 09:00:00) Glucose Urine Dipstick: Negative (03/25/24 09:00:00) Ketones Urine Dipstick: Negative (03/25/24 09:00:00) Leukocytes Urine Dipstick: Negative (03/25/24 09:00:00) Nitrite Urine Dipstick: Negative (03/25/24 09:00:00) Protein Urine Dipstick: Negative (03/25/24 09:00:00) Specific [place] Urine Dipstick: 1.020 (03/25/24 09:00:00) Urine Appearance Urine Dipstick: Clear (03/25/24 09:00:00) Urine Color Urine Dipstick: Yellow (03/25/24 09:00:00) Urobilinogen Urine Dipstick: Normal 0.2-1 EU/dl (03/25/24 09:00:00) pH Urine Dipstick: 6 (03/25/24 09:00:00) Normal [facility] Comment on above: Result Comment: Elec tronically Signed By: Jonathan HARDING MD\.br\Date and Time Signed: 03/25/24 09:33 EDT\.br\Electronically Co-Signed By: Robyn Mcfadden\.br\Date and Time Co-Signed: 03/25/24 09:31 EDT Lab Reportson 03-20-2024 Lab Reports [id number] 1.00TIFF Normal [facility] US CAROTID ART BILon 07-2 022 US CAROTID ART BRI EXAMINATION: US CAROTID ART BRI HISTORY: Cardiovascular symptoms COMPARISON: No [...] DARIO WORTHINGTON Date: 2022-08-01 17:14 Normal [facility] CBC AUTO DIFFon 07-14-2022 BASO # 0.0 103/ul Normal 0.0-0.1 [facility] Comment on above: Performed By: #### C BC #### [facility] [address] [place] [address] Dr. Krystle Caballero Basophils/100 WBC (Bld) 0.5 % Normal 0.2-2.0 [facility] Comment on above: Performed By: #### C BC #### [facility] [address] [place] [address] Dr. Krystle Caballero EO # 0.2 103/ul Normal 0.0-0.7 [facility] Comment on above: Performed By: #### C BC #### [facility] [address] [place] [address] Dr. Krystle Caballero Eosinophils/100 WBC (Bld) 3.0 % Normal 0.9-7.0 [facility] Comment on above: Performed By: #### C BC #### [facility] [address] [place] [address] Dr. Krystle Caballero Erythrocyte distribution width (RBC) [Ratio] 12.8 % Normal 11.0-15.0 [facility] Comment on above: Performed By: #### C BC #### [facility] [address] [place] [address] Dr. Krystle Caballero Hematocrit (Bld) [Volume fraction] 47.7 % Normal 42.0-54.0 [facility] Comment on above: Performed By: #### C BC #### [facility] [address] [place] [address] Dr. Krystle Caballero Hemoglobin (Bld) [Mass/Vol] 16.2 g/dL Normal 14.0-18.0 [facility] Comment on above: Performed By: #### C BC #### [facility] [address] [place] [address] Dr. Krystle Caballero IG # 0.01 10e3/ul Normal 0.00-0.03 [facility] Comment on above: Performed By: #### C BC #### [facility] [address] [place] [address] Dr. Krystle Caballero IG % 0.2 % Normal 0.0-0.5 [facility] Comment on above: Performed By: #### C BC #### [facility] [address] [place] [address] Dr. Krystle Caballero LYMPH # 2.3 103/ul Normal 1.2-3.8 [facility] Comment on above: Performed By: #### C BC #### [facility] [address] [place] [address] Dr. Krystle Caballero Lymphocytes/100 WBC (Bld) 38.1 % Normal 20.5-60.0 [facility] Comment on above: Performed By: #### C BC #### [facility] [address] [place] [address] Dr. Krystle Caballero MANUAL DIFF REQ NO Normal [facility] Comment on above: Performed By: #### C BC #### [facility] [address] [place] [address] Dr. Krystle Caballero MCH (RBC) [Entitic mass] 32.4 pg Normal 25.9-34.0 [facility] Comment on above: Performed By: #### C BC #### [facility] [address] [place] [address] Dr. Krystle Caballero MCHC (RBC) [Mass/Vol] 34.0 g/dL Normal 29.9-35.2 [facility] Comment on above: Performed By: #### C BC #### [facility] [address] [place] [address] Dr. Krystle Caballero MCV (RBC) [Entitic vol] 95.4 fL Critically high 80.0-94.0 [facility] Comment on above: Performed By: #### C BC #### [facility] [address] [place] [address] Dr. Krystle Caballero MONO # 0.6 103/ul Normal 0.3-0.8 [facility] Comment on above: Performed By: #### C BC #### [facility] [address] [place] [address] Dr. Krystle Caballero Monocytes/100 WBC (Bld) 9.6 % Normal 1.7-12.0 [facility] Comment on above: Performed By: #### C BC #### [facility] [address] [address] [address] Krystle Caballero NEUT # 2.9 103/ul Normal 1.4-6.5 [facility] Comment on above: Performed By: #### C BC #### [facility] [address] [place] [address] Dr. Krystle Caballero Neutrophils/100 WBC (Bld) 48.6 % Normal 43.0-75.0 [facility] Comment on above: Performed By: #### C BC #### [facility] [address] [place] [address] Dr. Krystle Caballero Platelet mean volume (Bld) [Entitic vol] 10.0 fL Normal 9.5-13.5 [facility] Comment on above: Performed By: #### C BC #### [facility] [address] [place] [address] Dr. Krystle Caballero PLT 219 103/ul Normal 150-450 [facility] Comment on above: Performed By: #### C BC #### [facility] [address] [place] [address] Dr. Krystle Caballero RBC 5.00 106/ul Normal 4.70-6.10 [facility] Comment on above: Performed By: #### C BC #### [facility] [address] [place] [address] Dr. Krystle Caballero WBC 6.0 103/ul Normal 4.0-11.0 [facility] Comment on above: Performed By: #### C BC #### [facility] [address] [place] [address] Dr. Krystle Caballero LIPID PROFILEon 07-14-2022 CHOL-HDL RATIO NORM SEE BELOW Normal [facility] Comment on above: Result Comment: 3.3 - 4.4 LOW RISK 4.4 - 7.1 AVERAGE RISK 7.1 - 11.0 MODERATE RISK >11.0 HIGH RISK Performed By: #### L IPID, CMP #### [facility] [address] [address] [address] Krystle Caballero Cholesterol [Mass/Vol] 157 mg/dL Normal <=200 [facility] Comment on above: Performed By: #### L IPID, CMP #### [facility] [address] [address] [address] Krystle Caballero Cholesterol in HDL [Mass/Vol] 49 mg/dL Normal 40-60 [facility] Comment on above: Performed By: #### L IPID, CMP #### [facility] [address] [address] [address] Krystle Caballero Cholesterol in LDL [Mass/Vol] 81.8 mg/dL Normal [facility] Comment on above: Performed By: #### L IPID, CMP #### [facility] [address] [address] [address] Krystle Caballero Cholesterol.total/Cho lesterol in HDL [Mass ratio] 3.2 {ratio} Normal [facility] Comment on above: Performed By: #### L IPID, CMP #### [facility] [address] [address] [address] Krystle Caballero HDL NORMAL > or = 60 mg/dl - LOW CARDIOVASCULAR RISK <40 mg/dl - HIGH CARDIOVASCULAR RISK Normal [facility] Comment on above: Performed By: #### L IPID, CMP #### [facility] [address] [address] [address] Krystle Caballero LDL CALC NORMAL SEE BELOW Normal [facility] Comment on above: Result Comment: <100 mg/dl OPTIMAL 100 - 129 mg/dl NEAR OR ABOVE OPTIMAL 130 - 159 mg/dl BORDERLINE HIGH 160 - 189 mg/dl HIGH >190 mg/dl VERY HIGH Performed By: #### L IPID, CMP #### [facility] [address] [address] [address] Krystle Caballero Triglyceride [Mass/Vol] 131 mg/dL Normal <=150 [facility] Comment on above: Performed By: #### L IPID, CMP #### [facility] [address] [address] [address] Krystle Caballero VLDL CALC 26.2 mg/dL Normal [facility] Comment on above: Performed By: #### L IPID, CMP #### [facility] [address] [address] [address] Krystle Caballero PROF 14(COMP METB)on 07-14- 022 Albumin [Mass/Vol] 3.9 g/dL Normal 3.4-5.0 [facility] Comment on above: Performed By: #### L IPID, CMP #### [facility] [address] [address] [address] Krystle Caballero Albumin/Globulin [Mass ratio] 1.1 {ratio} Normal [facility] Comment on above: Performed By: #### L IPID, CMP #### [facility] [address] [address] [address] Krystle Caballero ALP [Catalytic activity/Vol] 91 U/L Normal 46-116 [facility] Comment on above: Performed By: #### L IPID, CMP #### [facility] [address] [address] [address] Krystle Caballero ALT [Catalytic activity/Vol] 44 U/L Normal 16-63 [facility] Comment on above: Performed By: #### L IPID, CMP #### [facility] [address] [address] [address] Krystle Caballero Anion gap [Moles/Vol] 10.0 mmol/L Normal [facility] Comment on above: Performed By: #### L IPID, CMP #### [facility] [address] [address] [address] Krystle Caballero AST [Catalytic activity/Vol] 14 U/L Critically low 15-37 [facility] Comment on above: Performed By: #### L IPID, CMP #### [facility] [address] [address] [address] Krystle Caballero Bilirubin [Mass/Vol] 0.9 mg/dL Normal 0.2-1.0 [facility] Comment on above: Performed By: #### L IPID, CMP #### [facility] [address] [address] [address] Krystle Caballero Calcium [Mass/Vol] 9.4 mg/dL Normal 8.5-10.1 [facility] Comment on above: Performed By: #### L IPID, CMP #### [facility] [address] [address] [address] Krystle Caballero Chloride [Moles/Vol] 102 mmol/L Normal 98-107 [facility] Comment on above: Performed By: #### L IPID, CMP #### [facility] [address] [place] [address] Dr. Krystle Caballero CO2 [Moles/Vol] 31.4 mmol/L Normal 21.0-32.0 [facility] Comment on above: Performed By: #### L IPID, CMP #### [facility] [address] [place] [address] Dr. Krystle Caballero Creatinine [Mass/Vol] 0.90 mg/dL Normal 0.70-1.30 [facility] Comment on above: Performed By: #### L IPID, CMP #### [facility] [address] [place] [address] Dr. Krystle Caballero EGFR-AF CYMRO >60 Normal >=60 [facility] Comment on above: Performed By: #### L IPID, CMP #### [facility] [address] [place] [address] Dr. Krystle Caballero EGFR-NON AF CYMRO >60 Normal >=60 [facility] Comment on above: Performed By: #### L IPID, CMP #### [facility] [address] [place] [address] Dr. Krystle Caballero Globulin (S) [Mass/Vol] 3.7 g/dL Normal [facility] Comment on above: Performed By: #### L IPID, CMP #### [facility] [address] [place] [address] Dr. Krystle Cabalelro Glucose [Mass/Vol] 104 mg/dL Normal 74-106 [facility] Comment on above: Performed By: #### L IPID, CMP #### [facility] [address] [address] [address] Krystle Caballero Potassium [Moles/Vol] 4.4 mmol/L Normal 3.5-5.1 [facility] Comment on above: Performed By: #### L IPID, CMP #### [facility] [address] [address] [address] Krystle Caballero Protein [Mass/Vol] 7.6 g/dL Normal 6.4-8.2 [facility] Comment on above: Performed By: #### L IPID, CMP #### [facility] [address] [address] [address] Krystle Caballero Sodium [Moles/Vol] 139 mmol/L Normal 136-145 [facility] Comment on above: Performed By: #### L IPID, CMP #### [facility] [address] [place] [address] Dr. Krystle Caballero Urea nitrogen [Mass/Vol] 19.0 mg/dL Critically high 7.0-18.0 [facility] Comment on above: Performed By: #### L IPID, CMP #### [facility] [address] [place] [address] Dr. Krystle Caballero Urea nitrogen/Creatinine [Mass ratio] 21.1 mg/mg Normal [facility] Comment on above: Performed By: #### L IPID, CMP #### [facility] [address] [place] [address] Dr. Krystle Caballero Vital Signs Date Time Vital Sign Value Performing Clinician Facility 07-30-2024 10:05050 Body height 180.34 cm [facility] 07-30-2024 10:05050 Body mass index (BMI) [Ratio] 31.6 kg/m2 [facility] 07-30-2024 10:05050 Body weight 102.68 kg [facility] 07-30-2024 10:05-050 Diastolic blood pressure 88 mm[Hg] [facility] 07-30-2024 10:05-0500 Heart rate 71 /min [facility] 07-30-2024 10:050500 Respiratory rate 12 /min [facility] 07-30-2024 10:05-0500 Systolic blood pressure 153 mm[Hg] [facility] 03-25-2024 08:56-0400 Blood Pressure Location Jonathan HARDING [facility] 03-25-2024 08:56-0400 Body temperature 98.6 [degF] Jonathanguilherme HARDING [facility] 03-25-2024 08:56-0400 Diastolic blood pressure 83 mm[Hg] Jonathanguilherme HARDING [facility] 03-25-2024 08:56-0400 Heart rate 75 /min Jonathanguilherme HARDING [facility] 03-25-2024 08:56-0400 Respiratory rate 16 /min Jonathan HARDING [facility] 03-25-2024 08:56-0400 Systolic blood pressure 129 mm[Hg] Jonathanguilherme HARDING [facility] 12-14-2023 10:50-0400 Body height 180.34 cm DO Satish Ball Work Phone: [facility] 12-14-2023 10:50-0400 Body mass index (BMI) [Ratio] 30.7 kg/m2 DO Satish Ball Work Phone: [facility] 12-14-2023 10:50-0400 Body temperature 97.5 [degF] DO Satish Ball Work Phone: [facility] 12-14-2023 10:50-0400 Body weight 99.79 kg DO Satish Ball Work Phone: [facility] 12-14-2023 10:50-0400 Diastolic blood pressure 68 mm[Hg] DO Satish Ball Work Phone: [facility] 12-14-2023 10:50-0400 Heart rate 70 /min DO Satish Ball Work Phone: [facility] 12-14-2023 10:50-0400 SaO2% (BldA) [Mass fraction] 96 % DO Satish Ball Work Phone: [facility] 12-14-2023 10:50-0400 Systolic blood pressure 138 mm[Hg] DO Satish Ball Work Phone: [facility] 09-22-2023 11:07-0500 Diastolic blood pressure 92 mm[Hg] DO Satish Ball Work Phone: [facility] 09-22-2023 11:07-0500 Heart rate 72 /min DO Satish Ball Work Phone: [facility] 09-22-2023 11:07-0500 Respiratory rate 18 /min DO Satish Ball Work Phone: [facility] 09-22-2023 11:07-0500 SaO2% (BldA) [Mass fraction] 97 % DO Satish Ball Work Phone: [facility] 09-22-2023 11:07-0500 Systolic blood pressure 131 mm[Hg] DO Satish Ball Work Phone: [facility] 09-22-2023 08:55-0500 Body height 180.34 cm DO Satish Ball Work Phone: [facility] 09-22-2023 08:55-0500 Body weight 99.79 kg DO Satish Ball Work Phone: [facility] 09-06-2023 11:41-0500 Body height 193.04 cm Satish Ball Other [facility] [employer] Other 09-06-2023 11:41-0500 Diastolic blood pressure 84 mm[Hg] Satish Ball Other [facility] [employer] Other 09-06-2023 11:41-0500 Systolic blood pressure 128 mm[Hg] Satish Ball Other [email or web address] Other 08-15-2023 11:40-0500 Body height 193.04 cm Satish Ball Other [email or web address] Other 08-15-2023 11:40-0500 Diastolic blood pressure 84 mm[Hg] Satish Ball Other [email or web address] Other 08-15-2023 11:40-0500 Systolic blood pressure 132 mm[Hg] Satish Ball Other [email or web address] Other 07-25-2023 10:00-0400 Body height 193.04 cm Satish Ball Other [email or web address] Other 07-25-2023 10:00-0400 Body mass index (BMI) [Ratio] 27.04 kg/m2 Satish Ball Other [email or web address] Other 07-25-2023 10:00-0400 Body weight 100.79 kg Satish Ball Other [email or web address] Other 07-25-2023 10:00-0400 Diastolic blood pressure 90 mm[Hg] Satish Ball Other [email or web address] Other 07-25-2023 10:00-0400 Respiratory rate 16 /min Satish Ball Other [email or web address] Other 07-25-2023 10:00-0400 Systolic blood pressure 150 mm[Hg] Satish Ball Other [email or web address] Other 03-24-2023 08:41-0400 Blood Pressure Location Jonathan HARDING [facility] 03-24-2023 08:41-0400 Diastolic blood pressure 90 mm[Hg] Jonathan HARDING [facility] 03-24-2023 08:41-0400 Heart rate 68 /min Jonathan HARDING [facility] 03-24-2023 08:41-0400 Systolic blood pressure 129 mm[Hg] Jonathan HARDING [facility] 12-08-2022 11:45-0400 Body height 193.04 cm Denise Salas Other [email or web address] Other 12-08-2022 11:45-0400 Body mass index (BMI) [Ratio] 26.78 kg/m2 Denise Salas Other [email or web address] Other 12-08-2022 11:45-0400 Body temperature 97.7 [degF] Denise Salas Other [email or web address] Other 12-08-2022 11:45-0400 Body weight 99.79 kg Denise Salas Other [email or web address] Other 12-08-2022 11:45-0400 Diastolic blood pressure 90 mm[Hg] Denise Salas Other [email or web address] Other 12-08-2022 11:45-0400 SaO2% (BldA) [Mass fraction] 97 % Denise Salas Other [email or web address] Other 12-08-2022 11:45-0400 Systolic blood pressure 140 mm[Hg] Denise Salas Other [email or web address] Other 12-02-2021 10:45-0500 Body height 193.04 cm Denise Salas Other [email or web address] Other 12-02-2021 10:45-0500 Body mass index (BMI) [Ratio] 26.29 kg/m2 Denise Salas Other [email or web address] Other 12-02-2021 10:45-0500 Body temperature 98 [degF] Denise Salas Other [email or web address] Other 12-02-2021 10:45-0500 Body weight 97.98 kg Denise Salas Other [email or web address] Other 12-02-2021 10:45-0500 Diastolic blood pressure 82 mm[Hg] Denise Salas Other [email or web address] Other 12-02-2021 10:45-0500 SaO2% (BldA) [Mass fraction] 97 % Denise Salas Other [email or web address] Other 12-02-2021 10:45-0500 Systolic blood pressure 140 mm[Hg] Denise Salas Other [email or web address] Other Encounters Encounter Date Encounter Type Care Provider Facility Start: 08-05-2024 End: 08-05-2024 ambulatory NIKO CARCAMO Not Available Start: 07-30-2024 End: 07-30-2024 ambulatory [facility] Work Phone: Start: 07-30-2024 End: 07-30-2024 Encounter for general adult medical examination without abnormal findings [facility] Start: 07-30-2024 End: 07-30-2024 Patient encounter procedure [facility] Physician [facility] Work Phone: Start: 07-26-2024 Non-patient / Non-visit [facility] Work Phone: Start: 07-24-2024 Non-patient / Non-visit [facility] Physician [facility] Work Phone: Start: 03-25-2024 End: 03-25-2024 ambulatory Jonathan HARDING Facility:[facility] Start: 03-25-2024 End: 03-25-2024 Patient encounter procedure Jonathan HARDING [facility] Start: 12-14-2023 End: 12-14-2023 ambulatory Tyler Tejada Facility:[facility] Start: 12-14-2023 End: 12-14-2023 ambulatory DO Satish Ball Work Phone: [facility] Work Phone: Start: 12-14-2023 End: 12-14-2023 Patient encounter procedure DO Satish Ball Work Phone: [facility] Physician [facility] Vascular Surgery Work Phone: Start: 09-29-2023 End: 09-29-2023 ambulatory Satish Chuck Other [email or web address] Other Start: 09-29-2023 Telephone encounter Satish LEGER [facility] Coordinator Start: 09-22-2023 End: 09-22-2023 ambulatory Alex Blevins Facility:[facility] Start: 09-22-2023 End: 09-22-2023 Admission to same day surgery center DO Satish Ball Work Phone: [facility] Work Phone: Start: 09-22-2023 End: 09-22-2023 ambulatory DO Satish Ball Work Phone: [facility] Work Phone: Start: 09-06-2023 End: 09-06-[address]ish Ball Other [facility] [employer] Other Start: 09-06-2023 Telephone encounter Satish LEGER [facility] Start: 08-15-2023 End: 08-15-2023 ambulatory Satish Woods Other [email or web address] Other Start: 08-15-2023 Telephone encounter Satish LEGER [facility] Start: 08-11-2023 End: 08-11-2023 ambulatory Roldan Lowery Other [email or web address] Other Start: 08-11-2023 Telephone encounter Roldan Bautista [facility] Start: 07-25-2023 End: 07-25-2023 ambulatory Satish Woods Other [email or web address] Other Start: 07-25-2023 Encounter for genera l adult medical examination without abnormal findings Satish Wodos [facility] Start: 07-25-2023 Periodic preventive med est patient 40-64yrs Satish Woods [facility] Start: 07-17-2023 End: 07-17-2023 ambulatory Satish Woods Other [email or web address] Other Start: 07-17-2023 Encounter for genera l adult medical examination without abnormal findings Satish Woods [facility] Start: 07-17-2023 Telephone encounter Satish LEGER [facility] Start: 03-24-2023 End: 03-24-2023 Patient encounter procedure Jonathan HARDING [facility] Start: 03-21-2023 End: 03-21-2023 ambulatory Satish Woods Other [email or web address] Other Start: 03-21-2023 Telephone encounter Satish Woods [facility] Start: 12-08-2022 Follow-up encounter Denise Meng [facility] Start: 12-08-2022 End: 12-08-2022 ambulatory DO Satish Woods Work Phone: [facility] Work Phone: Start: 12-08-2022 End: 12-08-2022 Patient encounter procedure DO Satish Woods Work Phone: [facility] [place] Work Phone: Start: 08-01-2022 End: 08-02-[address] SATISH WOODS Facility:[facility] Start: 07-21-2022 Adult health examination Satish Woods Other [email or web address] Other Start: 07-20-2022 Encounter for genera l adult medical examination without abnormal findings DR SATISH WOODS [facility] Start: 07-14-2022 End: 07-15-[address] SATISH WOODS Facility:[facility] Start: 07-14-2022 End: 07-15-2022 Encounter for general adult medical examination without abnormal findings DR SATISH WOODS Facility:[facility] Start: 03-03-[address] SATISH WOODS Facili ty:[facility] Start: 02-23-2022 End: 02-24-[address] JONATHAN HARDING Facility:[facility] Start: 12-02-2021 End: 12-02-2021 ambulatory Denise Salas Other [email or web address] Other Start: 12-02-2021 Office outpatient visit 15 minutes Denise Salas [facility] Vascular Surgery Procedures Date Procedure Procedure Detail Performing Clinician Start: 09-22-2023 Screening colonoscopy D O Satish Woods Work Phone: Start: 02-23-[address] CHICO WOODS Comment on above: Performed By: #### P SAD #### [facility] [address] [place] [address] Dr. 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 Work Phone: Immunizations Immunization Date Immunization Notes Care Provider Fa cility 08-27-2021 SARS-CoV-2 (COVID-19 ) mRNA BNT-162b2 vax Jonathan HARDING [facility] 11-27-2020 SARS-CoV-2 (COVID-19 ) mRNA BNT-162b2 vax Jonathan HARDING [facility] 11-06-2020 SARS-CoV-2 (COVID-19 ) mRNA BNT-162b2 vax Jonathan HARDING [facility] 10-08-2013 meningococcal oligosaccharide (groups A, C, Y and W-135) diphtheria toxoid conjugate vaccine (MCV4O) Satish Woods Other [facility] Payers Date Payer Category Payer Medicare [id number] 2023 Unknown [id number] 2021 Private Health Insurance [id number] 1959 Private Health Insurance [id number] 1959 Self-pay 1959 Unknown [id number] 1959 Unknown [id number] 1959 Unknown [id number] 1959 Unknown [id number] 1959 Unknown [id number] 1959 Unknown [id number] Unknown [id number] Unknown [id number] Unknown [facility] [id number] Social History Date Type Detail Facility Sex Assigned At [facility] Start: 11-03-2020 Tobacco smoking stat NHIS Current some day smoker [facility] Start: 1960 Sex Assigned At Male F [facility] Start: 03-24-2023 End: 09-22-2023 Tobacco smoking status Ex-smoker (finding) [facility] Medical Equipment Procedure Code Equipment Code Equipment Origin al Text Equipment Identifier Dates Multiple periphe ral artery stent, bare-metal [id number] [facility] Start: 11-03-2020 Goals Date Patient Goal Desired Activity /State Functional Status Date Assessment Result Facility 03-25-2024 Functional Status N/A [facility] 03-24-2023 Functional Status N/A [facility] Clinical Notes 10-26-2020 to 03-25-2024 Note Date & Type Note Facility 03-25-2024 Evaluation + Plan note Diagnostic Tests PendingPSA Total 03/25/24 [facility] 03-25-2024 Hospital Discharge instructions Patient Education 03/25/2024 09:21:57 Prostate Cancer Screening Prostate Cancer Screening Prostate cancer screening is testing that is done to check for the presence of prostate cancer in men. The prostate gland is a walnut-sized gland that is located below the bladder and in front of the rectum in males. The function of the prostate is to add fluid to semen during ejaculation. Prostate cancer is one of the most common types of cancer in men. Who should have prostate cancer screening? Screening recommendations vary based on age and other risk factors, as well as between the professional organizations who make the recommendations. In general, screening is recommended if: You are age 50 to 70 and have an average risk for prostate cancer. You should talk with your health care provider about your need for screening and how often screening should be done. Because most prostate cancers are slow growing and will not cause , screening in this age group is generally reserved for men who have a 10- to 15-year life expectancy. You are younger than age 50, and you have these risk factors: ?Having a father, brother, or uncle who has been diagnosed with prostate cancer. The risk is higher if your family member's cancer occurred at an early age or if you have multiple family members with prostate cancer at an early age. ?Being a male who is Black or is of [place] or sub-Saharan descent. In general, screening is not recommended if: You are younger than age 40. You are between the ages of 40 and 49 and you have no risk factors. You are 70 years of age or older. At this age, the risks that screening can cause are greater than the benefits that it may provide. If you are at high risk for prostate cancer, your health care provider may recommend that you have screenings more often or that you start screening at a younger age. How is screening for prostate cancer done? The recommended prostate cancer screening test is a blood test called the prostate-specific antigen (PSA) test. PSA is a protein that is made in the prostate. As you age, your prostate naturally produces more PSA. Abnormally high PSA levels may be caused by: Prostate cancer. An enlarged prostate that is not caused by cancer (benign prostatic hyperplasia, or BPH). This condition is very common in older men. A prostate gland infection (prostatitis) or urinary tract infection. Certain medicines such as male hormones (like testosterone) or other medicines that raise testosterone levels. A rectal exam may be done as part of prostate cancer screening to help provide information about the size of your prostate gland. When a rectal exam is performed, it should be done after the PSA level is drawn to avoid any effect on the results. Depending on the PSA results, you may need more tests, such as: A physical exam to check the size of your prostate gland, if not done as part of screening. Blood and imaging tests. A procedure to remove tissue samples from your prostate gland for testing (biopsy). This is the only way to know for certain if you have prostate cancer. What are the benefits of prostate cancer screening? Screening can help to identify cancer at an early stage, before symptoms start and when the cancer can be treated more easily. There is a small chance that screening may lower your risk of dying from prostate cancer. The chance is small because prostate cancer is a slow-growing cancer, and most men with prostate cancer from a different cause. What are the risks of prostate cancer screening? The main risk of prostate cancer screening is diagnosing and treating prostate cancer that would never have caused any symptoms or problems. This is called overdiagnosisand overtreatment. PSA screening cannot tell you if your PSA is high due to cancer or a different cause. A prostate biopsy is the only procedure to diagnose prostate cancer. Even the results of a biopsy may not tell you if your cancer needs to be treated. Slow-growing prostate cancer may not need any treatment other than monitoring, so diagnosing and treating it may cause unnecessary stress or other side effects. Questions to ask your health care provider When should I start prostate cancer screening? What is my risk for prostate cancer? How often do I need screening? What type of screening tests do I need? How do I get my test results? What do my results mean? Do I need treatment? Where to find more information The [employer] [employer]: www.cancer.org [employer] [employer]: www.auanet.org Contact a health care provider if: You have difficulty urinating. You have pain when you urinate or ejaculate. You have blood in your urine or semen. You have pain in your back or in the area of your prostate. Summary Prostate cancer is a common type of cancer in men. The prostate gland is located below the bladder and in front of the rectum. This gland adds fluid to semen during ejaculation. Prostate cancer screening may identify cancer at an early stage, when the cancer can be treated more easily and is less likely to have spread to other areas of the body. The prostate-specific antigen (PSA) test is the recommended screening test for prostate cancer, but it has associated risks. Discuss the risks and benefits of prostate cancer screening with your health care provider. If you are age 70 or older, the risks that screening can cause are greater than the benefits that it may provide. This information is not intended to replace advice given to you by your health care provider. Make sure you discuss any questions you have with your health care provider. Document Revised: 03/07/2022 Document Reviewed: 03/07/2022 [employer] Patient Education 2022 [employer]. Follow Up Care 03/24/2023 09:39:34 With:NELLI NGUYEN, Jonathan Hudson, URL Address: [facility] [address], [place] [address] [phone] When: Unknown [facility] 03-25-2024 Note Patient Education Oncology Prostate Cancer Screening Prostate cancer screening is testing that is done to check for the presence of prostate cancer in men. The prostate gland is a walnut-sized gland that is located below the bladder and in front of the rectum in males. The function of the prostate is to add fluid to semen during ejaculation. Prostate cancer is one of the most common types of cancer in men. Who should have prostate cancer screening? Screening recommendations vary based on age and other risk factors, as well as between the professional organizations who make the recommendations. In general, screening is recommended if: ? You are age 50 to 70 and have an average risk for prostate cancer. You should talk with your health care provider about your need for screening and how often screening should be done. Because most prostate cancers are slow growing and will not cause , screening in this age group is generally reserved for men who have a 10- to 15-year life expectancy. ? You are younger than age 50, and you have these risk factors: ? Having a father, brother, or uncle who has been diagnosed with prostate cancer. The risk is higher if your family member's cancer occurred at an early age or if you have multiple family members with prostate cancer at an early age. ? Being a male who is Black or is of [place] or sub-Saharan descent. In general, screening is not recommended if: ? You are younger than age 40. ? You are between the ages of 40 and 49 and you have no risk factors. ? You are 70 years of age or older. At this age, the risks that screening can cause are greater than the benefits that it may provide. If you are at high risk for prostate cancer, your health care provider may recommend that you have screenings more often or that you start screening at a younger age. How is screening for prostate cancer done? The recommended prostate cancer screening test is a blood test called the prostate-specific antigen (PSA) test. PSA is a protein that is made in the prostate. As you age, your prostate naturally produces more PSA. Abnormally high PSA levels may be caused by: ? Prostate cancer. ? An enlarged prostate that is not caused by cancer (benign prostatic hyperplasia, or BPH). This condition is very common in older men. ? A prostate gland infection (prostatitis) or urinary tract infection. ? Certain medicines such as male hormones (like testosterone) or other medicines that raise testosterone levels. A rectal exam may be done as part of prostate cancer screening to help provide information about the size of your prostate gland. When a rectal exam is performed, it should be done after the PSA level is drawn to avoid any effect on the results. Depending on the PSA results, you may need more tests, such as: ? A physical exam to check the size of your prostate gland, if not done as part of screening. ? Blood and imaging tests. ? A procedure to remove tissue samples from your prostate gland for testing (biopsy). This is the only way to know for certain if you have prostate cancer. What are the benefits of prostate cancer screening? ? Screening can help to identify cancer at an early stage, before symptoms start and when the cancer can be treated more easily. ? There is a small chance that screening may lower your risk of dying from prostate cancer. The chance is small because prostate cancer is a slow-growing cancer, and most men with prostate cancer from a different cause. What are the risks of prostate cancer screening? The main risk of prostate cancer screening is diagnosing and treating prostate cancer that would never have caused any symptoms or problems. This is called overdiagnosisand overtreatment. PSA screening cannot tell you if your PSA is high due to cancer or a different cause. A prostate biopsy is the only procedure to diagnose prostate cancer. Even the results of a biopsy may not tell you if your cancer needs to be treated. Slow-growing prostate cancer may not need any treatment other than monitoring, so diagnosing and treating it may cause unnecessary stress or other side effects. Questions to ask your health care provider ? When should I start prostate cancer screening? ? What is my risk for prostate cancer? ? How often do I need screening? ? What type of screening tests do I need? ? How do I get my test results? ? What do my results mean? ? Do I need treatment? Where to find more information ? The [place] [employer]: www.cancer.org ? [employer] [employer]: www.auanet.org Contact a health care provider if: ? You have difficulty urinating. ? You have pain when you urinate or ejaculate. ? You have blood in your urine or semen. ? You have pain in your back or in the area of your prostate. Summary ? Prostate cancer is a common type of cancer in men. The prostate gland is located below the bladder and in front of the rectum. (more content not included)... [facility] 09-22-2023 Procedure note [facility] 07-25-2023 Evaluation note Encounter Date Diagnosis Assessment Notes Jun, Wellness examination (ICD-10 - Z00.00) Healthy diet and exercise. Reviewed age-appropriate preventive testing recommended. Jun, Atherosclerosis of [place] arteries of extremities with intermittent claudication, left [...] He denies abdominal pain, melena or hematochezia. [email or web address] Other 10-23-2023 Evaluation note* Encounter Date Diagnosis Assessment Notes Treatment Notes Treatment Clinical Notes Jun, Elevated cholesterol (ICD-10 - E78.00) Jun, Wellness examination (ICD-10 - Z00.00) Jun, Atherosclerosis of [place] arteries of extremities with intermittent claudication, left leg (ICD-10 - I70.212) Continue statin. Monitor BP closely. ASA 81mg daily. Walk frequently. Inspect feet daily for cuts and calluses. Jun, Screening PSA (prostate specific antigen) (ICD-10 - Z12.5) Jun, High risk medication use (ICD-10 - Z79.899) [email or web address] Other 06-30-2023 Hospital Discharge instructions Patient Education [...] urethra. Follow these instructions at home: Take iwis-jhz-ledeykr and prescription medicines only as told by [...] provider. Document Revised: 03/30/2022 Document Reviewed: 03/30/2022 [employer] Patient Education 2022 [employer]. Follow Up Care 03/02/2022 13:54:44 With:NELLI NGUYEN, Jonathan Hudson, URL Address: [address] [place] [address] [place] [address]- When:Within 1 Year(s) Comments:w/MATTHEW [facility] Evaluation note* Encounter Date Diagnosis Assessment [...] the meantime with any issues or concerns. [email or web address] Other 03-10-2022 Evaluation note* Encounter Date Diagnosis [...] with this plan, and denies any questions. [email or web address] Other 2021 History general Narrative - Reported* Type Description Date Medical History ATHEROSLEROSIS LEFT LEFT LEG Surgical History tonsillectomy Surgical History hernia repair X 2 Surgical History cyst removal RIGHT FOOT Surgical History LLE angioplasty and stent Hospitalization History tonsillectomy [email or web address] Other 2021 History general Narrative - Reported* Type Description Date Medical History ATHEROSLEROSIS LEFT LEFT LEG Surgical History tonsillectomy Surgical History hernia repair X 2 Surgical History cyst removal RIGHT FOOT Surgical History LLE angioplasty and stent 1 Surgical History Colonoscopy 01/[address] [facility] [employer] Other 2021 History general Narrative - Reported* Type Description Date Medical History ATHEROSLEROSIS LEFT LEFT LEG Surgical History tonsillectomy Surgical History hernia repair X 2 Surgical History cyst removal RIGHT FOOT Surgical History LLE angioplasty and stent 1 Surgical History Colonoscopy 01/2013 Surgical History Colonoscopy 09/[address] [facility] [employer] Other Evaluation + Plan note Future Appointments Appointment Date:03/25/2024 08:45:00 AM Scheduled Provider:Jonathan HARDING MD Location:[facility] Appointment Type:URO Office Visit Diagnostic Tests Pending * PSA Total 03/24/23 [facility] evaluation noteNo assessment information available [facility] Work Phone: Evaluation noteNo InformationNortLe[facility] [employer] Other evaluation note* Diagnosis Onset Date Resolution Status PAD (peripheral artery disease) acute [facility] Work Phone: Evaluation note* Diagnosis Onset Date Resolution Status Hypercholesterolemia acute Nicotine addiction acute Peripheral vascular disease acute Screening PSA (prostate specific antigen) acute Welcome to Medicare preventive visit noneactive [facility] Work Phone: History and physical note Author Alex Blevins [facility] September 22, 2023 10:19am Note Date/Time September 22, 2023 10:19am [facility] [address] [place] [address] Gastroenterology H&P Signed Patient: Chele Hernandez MR#: [id number] : 1960 Acct:[id number] Age/Sex: 63 / M Adm Date: 3 Loc: Room: Type: [facility] Attending Dr: Alex Blevins MD Copies to: [...] MD Documented By: Alex Blevins MD 09/22/23 1019 Signed By: <Electronically signed by Alex Blevins MD> 09/22/23 1019 [facility] Work Phone: Hospital course Narrative No data available for this section [facility] Discharge instructions Additional Instructions DISCHARGE INSTRUCTIONS [...] years. -Follow up with PCP. -Office number [phone].[facility] Work Phone: Progress note No data available for this section [facility] Summary Purpose Family History No Family History Records Found Relationship Condition Age at Onset Recorded Date/T juan luis father Unknown Malignant neoplasm Unknown Not Specified Hypertension Unknown sister Malignant neoplasm of liver Unknown Unknown Relationship Condition Age at Onset Recorded Date/T juan luis father Unknown Malignant neoplasm Unknown mother Hypertension Unknown sister Malignant neoplasm of liver [...] for Visit PAD (peripheral robin ry disease) Chief Complaint CC Adult Risk Strati fication Wellness Reason for Visit Hypercholesterolemia Nicotine addiction Peripheral vascular disease Screening PSA (prostate specific antigen) Welcome to Medicare preventive visit Reason for Referral Reason *Waiting for appt Mr. Hernandez is being referred for screening colonoscopy, his last colonoscopy was in 2012. Diagnosis 1 Colon cancer screeni ng (Z12.11) Referral Organization [facility] Referring Provider First Name Satish Referring Provider Last Name Chuck Referring Provider Specialty Internal Me dicine Referred Organization [facility] Gastroenterolo gy Referred Provider Alex Blevins Referred Address [address],[facility] [address] ,[place], [place],[address] Referred Provider Specialty Gastroentero logy Referral Priority [...] Records FoundNo Status Records FoundNo Status Records FoundNo Status Records Found INFORMATION SOURCE (unrecogn ized section and content) DATE CREATED AUTHOR 09/17/2022 [facility] DATE CREATED AUTHOR AUTHOR'S ORGANIZ ATION 12/26/2023 [facility] DATE CREATED AUTHOR AUTHOR'S ORGANIZ ATION 05/02/2024 [facility] DATE CREATED AUTHOR AUTHOR'S ORGANIZ ATION 08/06/2024 [facility] [employer] Care Teams (unrecognized sec tion and content) Team Status: Active Member Role Status Dates Satish Woods DO Primary Care Provider Active Team Status: Active Member Role Status Dates Satish Woods DO Primary Care Provide r, Attending Provider Active Start: July 24, 2024 Team Status: Active Member Role Status Dates Satish Woods , DO Primary Care Provide r, Attending Provider Active Start: July 26, 2024 Team Status: Inactive Member Role Status Dates Satish Woods , DO Primary Care Provide r, Attending Provider Active Start: July 30, 2024 End: July 30, 2024 Team Status: Inactive Member Role Status Dates Satish Woods , DO Primary Care Provider Active PHILLIP Desouza Attending Provider Active Team Status: Inactive Member Role Status Dates Satish Woods , DO Primary Care Provider Active Alex Blevins MD Attending Provider Active Team Status: Inactive Member Role Status Dates Satish Woods , DO Primary Care Provider Active Start: September 22, 2023 End: September 22, 2023 Alex Blevins MD Attending Provider Active S tart: September 22, 2023 End: September 22, 2023 Team Status: Inactive Member Role Status Dates Satish Woods , DO Primary Care Provider Active Start: December [...] BE BASED ON THE PRIMARY CLINICAL RECORDS. [facility] [employer] provides no warranty or guarantee of the accuracy or completeness of information in this document.
== END 2024-08-07 09:21 | disposition home or self-care (01) ==
LOC: CT 09:21
PROVIDERS: PCP Internal Medicine; Visit Provider Internal Medicine
DX: F17.211 Nicotine dependence, cigarettes, in remission (principal)
CPT/HCPCS: 71271

== ENCOUNTER 2025-07-29 10:16 | Outpatient (OUT) | payer MEDICARE, OTHER, SELFPAY ==
--- OUTSIDE RECORDS SUMMARY | 2025-07-29 10:29 | XMS_ITS | Clinical Summary ---
Author Organization [facility] Address [address] [place] [address] Care Team Providers Care Information Security Consultant Name Role Phone Satish Woods DO Primary Care Provider [phone] Allergies No known active allergies Medications MedicationSigDispense QuantityRefillsLast FilledStart DateEnd DateStatus atorvastatin (Lipitor) 40 MG tablet Take 40 mg by mouth Daily07/04/2024ctive omeprazole (PriLOSEC) [address] capsule Take 40 mg by mouth in the morning. Take before meals.07/30/2024ctive aspirin 81 MG EC tablet Take 81 mg by mouth DailyActive Social History Tobacco UseTypesPacks/DayYears UsedDateSmoking Tobacco: Never AssessedSex and Gender InformationValueDate RecordedSex Assigned at BirthNot on fileLegal Sex Male12/07/2022 7:06 PM EDTGender IdentityNot on fileSexual OrientationNot on file Last Filed Vital Signs Vital SignReadingTime TakenCommentsBlood Xurzpuau587/9408/05/2024 9:34 AM EST Pulse--Temperature--Respiratory Rate--Oxygen Saturation--Inhaled Oxygen Concentration--Ughzqy458 kg (230 lb)08/05/2024 9:34 AM GDAWwvjaq422.3 cm (5' 11 )08/05/2024 9:34 AM ESTBody Mass Index32.0808/05/2024 9:34 AM EST Plan of Treatment Health MaintenanceDue DateLast DoneCommentsCT Vymexhiheawb1959Colonoscopy 1960Colorectal Cancer Zduenefgv1959FIT-DNA1959FIT1960 FOBT1960 3201Ftinyoxxsuovq1959MMR Vaccines (1 of 1 - Standard series) 02/02/1960DTaP/Tdap/Td Vaccines (1 - Tdap)1966Pneumococcal Vaccine: 65+ Years (1 of 1 - PCV)2009COVID-19 Vaccine (4 - 2024- season)2025 08/27/2021, 11/27/2020, 11/06/2020Influenza Vaccine (#1)2025HIB Vaccines Aged OutNo longer eligible based on patient's age to complete this topicHPV VaccinesAged OutNo longer eligible based on patient's age to complete this topic Hepatitis A VaccinesAged OutNo longer eligible based on patient's age to complete this topicHepatitis B VaccinesAged OutNo longer eligible based on patient's age to complete this topicIPV VaccinesAged OutNo longer eligible based on patient's age to complete this topicMeningococcal B VaccineAged OutNo longer eligible based on patient's age to complete this topicMeningococcal VaccineAged OutNo longer eligible based on patient's age to complete this topicRotavirus VaccinesAged OutNo longer eligible based on patient's age to complete this topic Insurance Care Teams Team MemberRelationshipSpecialtyStart DateEnd Date Satish Woods DO PCP - GeneralInternal Pfsjvuat85/6/24
--- OUTSIDE RECORDS SUMMARY | 2025-07-29 10:34 | XMS_ITS | CCD ---
Author Organization [facility] Care Team Providers Care Construction Stonemason Name Role Phone Denise Salas Unavailable CHUCK, [...] Admitting Unavailable NELLI, DR MCCLOUD Consulting Unavailable NELLI, DR MCCLOUD Attending Unavailable CHUCK, DR CLARK Primary Care Unavailable CHUCK, DR CLARK Attending Unavailable CHUCK, DR CLARK Admitting Unavailable CHUCK, DR CLARK Primary Care Unavailable DO Satish Woods Primary Care Provider [phone] PHILLIP Salas Attending Provider Satish Woods Unavailable SATISH WOODS Primary Care Physician Roldan Lowery Unavailable DO Satish Woods Primary Care Provider [phone] MD Alex Blevins Attending Provider [phone] DO Satish Woods Primary Care Provider MD Alex Blevins Attending Provider [phone] Alex Blevins Attending Unavailable Alex Blevins Admitting Unavailable Satish Woods Primary Care Unavailable Tyler Tejada Admitting UnavailSatish Le Primary Care Unavailable Tyler Tejada Attending UnavailJonathan Stack Attending Unavailable NIKO CAMPBELL Attending Unavailable SATISH WOODS Referring Unavailable Satish Woods MD Primary Care Provider Allergies Allergy ClassificationReported Allergen(s)Allergy TypeDate of OnsetReaction(s) Facility (1 source)patient allergy list reviewed by nurse or physiciaPropensity to adverse cmmucrujl90-48-2665Upffllp:Ailvxing net Other (1 source)No Known Medication Allergies; Translations: [No Known Medication Allergies]Propensity to adverse reactions (disorder)[facility] Repository Medications Current Medications MedicationDrug Class(es)DatesSig (Normalized)Sig (Original)aspirin 81 mg oral tablet (19 sources)Platelet Aggregation Inhibitor, Nonsteroidal Anti-inflammatory Drug Start: 17-35-9007scoh 1 tablet by mouth once dailyAspirin 81 mg Tablet Active 81 MG PO Daily November 03, 2020 12:00amStart: 74-25-4785axeqcxd 81 mg Chew Tab mg tab(s), Chewed, Daily, Refills(s) 0 Start Date: 02/07/20 Status: Orderedtake 1 tablet by mouth once dailyaspirin 81 MG EC tablet Take 81 mg by mouth Daily Activeatorvastatin 40 mg oral tablet (20 sources)HMG-CoA Reductase InhibitorStart: 64-10-8797hdwv 1 tablet by mouth once daily in the eveningAtorvastatin 40 mg tablet Active 0 .ROUTE .COMPLEX 90 July 04, 2024 11:40am TAKE 1 TABLET BY MOUTH EVERY DAY IN THE EVENINGStart: 02-06-2020 End: 94-08-1349cypg 1 tablet by mouth once dailyAtorvastatin 40 mg tablet Discontinued 40 MG PO Daily November 03, 2020 12:00am July 041:41am citric acid 68.6 MG/ML / magnesium oxide 20 MG/ML / picosulfate sodium 0.0571 MG/ML Oral Solution [Clenpiq] (2 sources)Start: 57-56-5106rtnp 1 dose by mouth twice daily in the evening Clenpiq 10-3.5-12 MG-GM -GM/175ML 175 mL the first dose at 3:00 pm and 175 ml second dose at 9:00 pm Orally twice a day for 1 days PLEASE CHECK ALLERGIES Jul, Activeclenpiq 10-3.5-12 mg-gm -gm/175ml solution (2 sources)Start: 76-85-1097avjc 1 dose by mouth twice daily in the evening Clenpiq 10-3.5-12 MG-GM -GM/175ML 175 mL the first dose at 3:00 pm and 175 ml second dose at 9:00 pm Orally twice a day for 1 days PLEASE CHECK ALLERGIES Jul, Activeeye vitamin (2 sources)Start: 27-91-6419vio vitamin eye vitamin Start Date: 02/06/20 Status: OrderedFish Oil + D3 8958-4800 MG-UNIT (9 sources)Start: 23-48-6058heki 1 capsule by mouth three times dailyFish Oil + D3 9750-8189 MG-UNIT 1 capsule Orally Three times a day Jul, Active Start: 51-13-8721ozio 1 capsule by mouth three times dailyFish Oil + D3 1200- 1000 MG-UNIT 1 capsule Orally Three times a day for 30 day(s) Jul, ActiveFish Oils (2 sources)Start: 92-54-3993Fouc Oil Oral, Refill(s) 0 Start Date: 02/06/20 Status: OrderedICaps - (9 sources)Start: 34-72-8738HSrrx - as directed Orally Jul, Active Kyrwu-2r-Qqk-Epa-Fish Oil-D3 (Fish Oil-Vit D3) 360 mg-1,200 mg -1,000 unit Capsule (6 sources)Start: 01-04-1694vvty 1 capsule by mouth three times daily Dybig-0x-Dls-Epa-Fish Oil-D3 (Fish Oil-Vit D3) 360 mg-1,200 mg -1,000 unit Capsule Active 1 CAP PO Three times daily November 03, 2020 12:00amStart: 16-55-7915hdyq 1 capsule by mouth three times lqzdvKtqap-1s-Rmk-Epa-Fish Oil-D3 (Fish Oil-Vit D3) 360 mg-1,200 mg -1,000 unit Capsule Active 1 CAP PO Three times daily November 03, 2020 1:06haMqyk-I3-F-I-Vvxuqn-Jmraiib-Min (Icaps) 3,075-1-315-75 egba-ji-kk-unit Tablet Extended Release (6 sources)Start: 69-25-9517cfqt 1 tablet by mouth once daily Duvv-F3-J-L-Dqpcdm-Gbssaga-Min (Icaps) 3,186-5-804-75 rvwz-uj-xd-unit Tablet Extended Release Active 1 TAB PO Daily November 03, 2020 12:00amStart: 18-65-7396sfln 1 tablet by mouth once rqrorCdrm-I7-Z-H-Mfaxsd-Vdaabhq-Min (Icaps) 3,506-8-697-75 mjxo-xq-xi-unit Tablet Extended Release Active 1 TAB PO Daily November 03, 2020 1:00am Completed/Discontinued Medications MedicationDrug Class(es)DatesSig (Normalized)Sig (Original)clopidogrel 75 mg oral tablet (17 sources)P2Y12 Platelet InhibitorStart: 07-30-2024 End: 67-68-5794ywdv 1 tablet by mouth once dailyClopidogrel 75 mg tablet Discontinued 75 MG PO Daily July 30, 2024 12:00am July 30, 2024 1 0:38amStart: 11-03-2020 End: 05-27-3481wynz 1 tablet by mouth once dailyClopidogrel 75 mg Tablet Discontinued 75 MG PO Daily 180 180 November 03, 2020 12:00am September 21, 2023 1:10pmomeprazole 40 mg delayed release oral capsule (5 sources)Proton Pump InhibitorStart: 08-21-2024 End: 30-14-6126bame 1 capsule by mouth once daily at breakfastOmeprazole 40 mg capsule,delayed release(DR/EC) Discontinued 0 .ROUTE .COMPLEX 90 August 21, 2024 5:30pm October 30, 2024 10:01am TAKE 1 CAPSULE BY MOUTH ONCE A DAY ON AN EMPTY STOMACH 30 MINUTES PRIOR TO BREAKFASTStart: 07-30-2024 End: 89-42-8726Bhjlwfoemv 40 mg capsule,delayed release(DR/EC) Discontinued 40 MG PO Daily 30 July 30, 2024 12:00am August 21, 2024 5:30pm Take on empty stomach, 30 minutes prior to bkfst Problems Active Problems Problem ClassificationProblemDateDocumented DateEpisodic/ChronicAllergic reactions (1 source)Contact dermatitis due to plants; Translations: [Contact dermatitis and other eczema due to plants (except food)]EpisodicDisorders of lipid metabolism (16 sources)Hyperlipidemia; Translations: [Mixed hyperlipidemia]Onset: 544364-80-3274QftpsgkZdgcifsix hypertension (2 sources)Benign essential hypertension; Translations: [Essential hypertension, benign]Onset: 61-34-7265XxcwasfTxbmifztueq of prostate (9 sources)Benign prostatic hyperplasia without lower urinary tract symptoms; Translations: [Benign prostatic hypertrophy without outflow obstruction]Onset: 20-55-0224ZhnxxaqXjhwvicbfzpvrj (2 sources)Txvmtmshc54-61-4696QrzzcdeWvldw acquired deformities (1 source)Contracture of left elbow joint; Translations: [Contracture, left elbow]ChronicOther acquired deformities (1 source)Contracture of right elbow joint; Translations: [Contracture, right elbow]ChronicOther aftercare (1 source)Other terminologist (current) drug therapyEpisodicOther circulatory disease (4 sources)Other specified symptoms and signs involving the circulatory and respiratory systems; Translations:[OTH SPEC SX SIGNS INVLV CIRC RS]Onset: 09-59-3677SqhjdapkBpcph circulatory disease (1 source)Cardiovascular symptoms; Translations: [Other specified symptoms and signs involving the circulatory and respiratory systems]EpisodicOther circulatory disease (1 source)Elevated blood-pressure reading without diagnosis of hypertension; Translations: [Elevated blood-pressure reading, without diagnosis of hypertension]EpisodicOther circulatory disease (1 source)Elevated blood-pressure reading, without diagnosis of hypertension EpisodicOther connective tissue disease (1 source)Disorder of muscle; Translations: [Other specified disorders of muscle]EpisodicOther hereditary and degenerative nervous system conditions (3 sources)Essential tremor; Translations: [Essential tremor]77-71-3136Fworbqe Other hereditary and degenerative nervous system conditions (1 source)Essential tremor; Translations: [Essential and other specified forms of tremor]54-93-1563JoqdrilEtadw nervous system disorders (1 source)Carpal tunnel syndrome; Translations: [Carpal tunnel syndrome, bilateral upper limbs]ChronicOther nervous system disorders (1 source)Paresthesia; Translations: [Paresthesia of skin]EpisodicOther non- traumatic joint disorders (1 source)Arthralgia of the upper arm; Translations: [Pain in right elbow] EpisodicOther nutritional; endocrine; and metabolic disorders (1 source)Obese class I; Translations: [Body mass index 33.0-33.9, adult]Onset: 85-29-7300KwaqdphIegus nutritional; endocrine; and metabolic disorders (2 sources)Body mass index 30+ - obesity; Translations: [Body mass index 30.0- 30.9, adult]Onset: 30-48-2701JrfkgmhJgbxb nutritional; endocrine; and metabolic disorders (2 sources)Obesity; Translations: [Obesity, unspecified]Onset: 91-70-5366Ihfzouc Other nutritional; endocrine; and metabolic disorders (1 source)Simple obesity ; Translations: [Other obesity due to excess calories] ChronicOther screening for suspected conditions (not mental disorders or infectious disease) (11 sources)Elevated prostate specific antigen [PSA]; Translations: [Raised prostate specific antigen]Onset: 14-63-9980NyqshgmoHerbfim on above:PSA: 1.64 - 2021, 1.83 - 2022, 1.55 - 06/2024TRUS/bx - remotePeripheral and visceral atherosclerosis (20 sources)Intermittent claudication; Translations: [Peripheral vascular disease, unspecified]Onset: 12-02-2021 Resolved: 94-45-4110SbmqggiKpvwhin on above:s/p angioplasty left - 2020 Screening and history of mental health and substance abuse codes (4 sources)H/O: Disorder; Translations: [Personal history of nicotine dependence]Onset: 34-89-8108BfeggqdiXyngujvmp-related disorders (11 sources)Tobacco user; Translations: [Nicotine dependence, cigarettes, in remission]ChronicComment on above:LDCT: no suspicious nodules - 07/2024, Age started 21, ppd 1, age/year quit 53y/o, 2012.Unclassified (2 sources)Drug therapy mzwgazi39-06-0245Shisbvgtuknk (1 source)Encounter for screening for malignant neoplasm of colon; Translations: [Encounter for screening formalignant neoplasm of colon]Onset: 09-22-2023 Past or Other Problems Problem ClassificationProblemDateDocumented DateEpisodic/ChronicBacterial infection; unspecified site (1 source)Streptococcus pyogenes infection; Translations: [Streptococcus infection in conditions classified elsewhere and of unspecified site, group A] Onset: 48-98-1864JutvckylTilrssww; including migraine (1 source)Headache; Translations: [Headache]Onset: 60-46-0210Pujrpphu Intracranial injury (1 source)Concussion with no loss of consciousness; Translations: [Concussion with no loss of consciousness]Onset: 09-60-6933MkrblifwFqjcx disorders and dislocations; trauma-related (2 sources)Dislocations, sprains and strains involving multiple regions of lower limb(s); Translations: [Sprain and strain of unspecified site of knee and leg] Onset: 33-21-9036LjscqqzrDyfqrrf and fatigue (1 source)Malaise and fatigue; Translations: [Other malaise and fatigue]Onset: 90-42-2046EgwizxrjQvytbtmuaoj chest pain (1 source)Chest pain; Translations: [Chest pain, unspecified]Onset: 04-20-2016 EpisodicOther diseases of veins and lymphatics (1 source)Peripheral venous insufficiency; Translations: [Unspecified venous (peripheral) insufficiency]Onset: 02-69-9702SqxpsjyjBoqgk ear and sense organ disorders (1 source)Tinnitus; Translations: [Unspecified tinnitus]Onset: 06-17-2017 EpisodicOther liver diseases (1 source)Elevated levels of transaminase & lactic acid dehydrogenase; Translations: [Nonspecific elevation of levels of transaminase or lactic acid dehydrogenase (LDH)]Onset: 44-23-5708WnlxgybkAqhfl lower respiratory disease (1 source)Dyspnea; Translations: [Other dyspnea and respiratory abnormalities] Onset: 76-06-1380MgkfejwxIwoyd non-traumatic joint disorders (1 source)Arthralgia of the lower leg; Translations: [Pain in joint, lower leg] Onset: 91-04-2501HigkmwdpHppdt nutritional; endocrine; and metabolic disorders (1 source)Abnormal weight gain; Translations: [Abnormal weight gain]Onset: 45-73-6807IdhfszbxNzzmn skin disorders (1 source)Generalized hyperhidrosis; Translations: [Generalized hyperhidrosis] Onset: 80-28-6301EtnjbdkkKkbyg upper respiratory infections (1 source)Acute maxillary sinusitis; Translations: [Acute maxillary sinusitis] Onset: 23-02-7626GlgcwmwnSuohjj media and related conditions (1 source)Eustachian tube salpingitis; Translations: [Unspecified Eustachian salpingitis]Onset: 32-61-4848YhmwuirwKvwtakrd codes; unclassified (1 source)Edema; Translations: [Edema]Onset: 88-33-2183CqyyuchbTmohetodvvb; intervertebral disc disorders; other back problems (1 source)Brachial radiculitis; Translations: [Brachial neuritis or radiculitis NOS]Onset: 88-61-8687WlyockrsYoaducr and strains (1 source)Neck sprain; Translations: [Neck sprain and strain]Onset: 06-16-2017 EpisodicUnclassified (1 source)Long-term current use of drug therapy; Translations: [Long-term (current) use of other medications]Onset: 06-19-2018 Results Test NameValueInterpretationReference RangeFacilityBasophils Auto (Bld) [#/Vol] on 25-75-0959Vjmeyyvxj (Bld) [#/Vol]0.0 10 3/uL0.0-0.1FSt. Anthony's HospitalBasophils/100 WBC Auto (Bld)on 17-08-9940Fixvollmo/100 WBC (Bld)0.4 % 0.2-2.0[facility] HospitalCholesterol in LDL Calc [Mass/Vol]on 74-92-6900Cajogrecuus in LDL [Mass/Vol]62.2 mg/dLCleveland Clinic Mercy HospitalComment on above:<100 mg/dl QSUAKRJ173-364 mg/dl NEAR OR ABOVE XGDZHAJ157- 159 mg/dl BORDERLINE POSL460-892 mg/dl HIGH>190 mg/dl VERY HIGHCholesterol in VLDL Calc [Mass/Vol]on 57-86-6250Tionpafcslx in VLDL [Mass/Vol]23.8 mg/dL [facility] HospitalEosinophils/100 WBC Auto (Bld)on 07-24-2024 Eosinophils/100 WBC (Bld)1.5 %0.9-7.0[facility] Erythrocyte distribution width Auto (RBC) [Ratio]on 08-41-2356Ocknayqavgb distribution width (RBC) [Ratio]12.6 %11.0-15.0[facility] Estimated glomerular filtration rate (GFR) non- Americanon 07-24-2024 GFR/1.73 sq M.predicted among non-blacks MDRD (S/P/Bld) [Vol rate/Area] mL/min/{1.73_m2}>=60 mL/min/1.73m 2FSt. Anthony's HospitalGlobulin Calc (S) [Mass/Vol]on 85-32-2367Xdubcivm (S) [Mass/Vol]3.7 g/dLCleveland Clinic Mercy HospitalHematocrit Auto (Bld) [Volume fraction]on 07-24-2024 Hematocrit (Bld) [Volume fraction]45.2 %42.0-54.0[facility] HospitalHemoglobin [Mass/volume] in Bloodon 06-59-4499Yfsxnjpxaj (Bld) [Mass/Vol] 15.7 g/dL14.0-18.0[facility] HospitalLaboratory - Chemistry and Chemistry - challengeon 46-80-2255Vqbfvyc [Mass/Vol]3.5 g/dL3.4-5.0[facility] HospitalALP [Catalytic activity/Vol]93 U/O67-750WmzbdbpbzCleveland Clinic Mercy HospitalALT [Catalytic activity/Vol]46 U/K67-70HxbeekaiuCleveland Clinic Mercy HospitalAST [Catalytic activity/Vol]19 U/K89-74SsehptxnnCleveland Clinic Mercy HospitalBilirubin [Mass/Vol]1.2 mg/dLHigh0.2-1.0[facility] Calcium [Mass/Vol]9.0 mg/dL8.5-10.1FSt. Anthony's HospitalChloride [Moles/Vol]104 mmol/J56-918LluckugqdCleveland Clinic Mercy HospitalCholesterol [Mass/Vol]137 mg/dL<=200[facility] HospitalCholesterol in HDL [Mass/Vol]51 mg/tQ80-72KbabijsvoCleveland Clinic Mercy HospitalComment on above:> or =60 mg/dl - LOW CARDIOVASCULAR RISK<40 mg/dl - HIGH CARDIOVASCULAR RISKCO2 [Moles/Vol]26.1 mmol/L21.0-32.0[facility] HospitalCreatinine [Mass/Vol]0.88 mg/dL0.70-1.30[facility] HospitalGFR/1.73 sq M.predicted MDRD (S/P/Bld) [Vol rate/Area]mL/min/{1.73_m2}>=60 mL/min/1.73m 2 [facility] HospitalGlucose [Mass/Vol]105 mg/kD93-638GcezwxxlhCleveland Clinic Mercy HospitalPotassium [Moles/Vol]4.3 mmol/L3.5-5.1FSt. Anthony's HospitalProtein [Mass/Vol]7.2 g/dL6.4-8.2FSt. Anthony's Hospital Sodium [Moles/Vol]140 mmol/E424-592GngzefhlkCleveland Clinic Mercy HospitalTriglyceride [Mass/Vol]119 mg/dL<=150[facility] HospitalUrea nitrogen [Mass/Vol]15.0 mg/dL7.0-18.0[facility] HospitalUrea nitrogen/Creatinine [Mass ratio]17.0 mg/mgC[facility] Clinic [facility] Hospital Laboratory - Hematology and Cell countson 01-00-2703Jewodonz granulocytes/100 WBC (Bld)0.3 %0.0-0.5FSt. Anthony's HospitalLeukocytes [#/volume] corrected for nucleated erythrocytes in Blood by Automated counon 89-49-4447TMN corrected for nucl RBC Auto (Bld) [#/Vol]7.5 10 3/uL4.0-11.0[facility] HospitalLymphocytes Auto (Bld) [#/Vol]on 29-32-8733Mmibloptszx (Bld) [#/Vol]2.3 10 3/uL1.2-3.8[facility] HospitalLymphocytes/100 WBC Auto (Bld)on 41-60-7655Bbvzxxzqmgb/100 WBC (Bld)30.3 %20.5-60.0[facility] CenterH Auto (RBC) [Entitic mass]on 34-72-5840YCL (RBC) [Entitic mass]32.8 pg25.9-34.0[facility] HospitalMCHC Auto (RBC) [Mass/Vol]on 62-52-7711VRAP (RBC) [Mass/Vol]34.7 g/dL29.9-35.2FSt. Anthony's HospitalMCV Auto (RBC) [Entitic vol]on 42-90-1072TKR (RBC) [Entitic vol] 94.4 sHMfdt42.0-94.0[facility] HospitalMonocytes Auto (Bld) [#/Vol]on 91-39-2488Rumjtbuff (Bld) [#/Vol]0.7 10 3/uL0.3-0.8[facility] CenterMonocytes/100 WBC Auto (Bld)on 62-85-0737Hjphxezdw/100 WBC (Bld) 9.3 %1.7-12.0[facility] HospitalNeutrophils Auto (Bld) [#/Vol]on 70-31-3171Zfzarvdfsnx (Bld) [#/Vol]4.4 10 3/uL1.4-6.5FSt. Anthony's HospitalNeutrophils/100 WBC Auto (Bld)on 35-33-3153Pcqbsaiexiy/100 WBC (Bld)58.2 % 43.0-75.0[facility] HospitalNo Panel Informationon 07-24-2024 Eosinophils # (Auto)0.1 10 3/uL0.0-0.7FSt. Anthony's HospitalImmature Granulocyte # (Auto)0.02 10 3/uL0.00-0.03[facility] Nucleated Red Blood Cells/100 PSG1NfgobokfcCleveland Clinic Mercy HospitalPlatelet mean volume Auto (Bld) [Entitic vol]on 28-63-0155Eralurrb mean volume (Bld) [Entitic vol]10.2 fL9.5-13.5FSt. Anthony's HospitalPlatelets Auto (Bld) [#/Vol]on 27-26-1774Rvdkuyxfg (Bld) [#/Vol]213 10 3/lX610-347WcamunikfCleveland Clinic Mercy HospitalRBC Auto (Bld) [#/Vol]on 16-13-6842VBV (Bld) [#/Vol]4.79 10 6/uL 4.70-6.10[facility] Hospitalerum or plasma albumin/globulin mass ratioon 39-43-3066Mvkdmur/Globulin [Mass ratio]0.9 {ratio}[facility] Hospitalerum or plasma anion gap determinationon 58-02-6348Chtuh gap [Moles/Vol]14.2 mmol/LFMercy Health St. Elizabeth Boardman Hospitalerum or plasma total cholesterol/high density lipoprotein (HDL) cholesterol mass ama 07-24-2024 Cholesterol.total/Cholesterol in HDL [Mass ratio]2.7 {ratio}[facility] HospitalComment on above:3.3 - 4.4 LOW RISK4.4 - 7.1 AVERAGE RISK7.1 - 11.0 MODERATE RISK>11.0 HIGH RISKUrology Office/Clinic Noteon 59-14-0176Trtvzfe Office/Clinic NoteUrology Office/Clinic Note Chief Complaint BPH and elevated [...] (N40.0: Benign prostatic hyperplasia without lower urinary tractsymptoms) UA today negative for blood and infection. Not currently taking any BPH meds. Not voicing any urinary habit complaints. Advised pt to increase water intake to prevent infection. Follow-up With When Contact Information NELLI NGUYEN, Jonathan Hudson, URL [facility] [address] [place] [phone] Additional Instructions: PRN Patient Education Prostate Cancer [...] ago Tobacco Use:. Cigarettes, Household tobacco concerns: No.Yes, 03/25/2024 Former smoker, quit more than 30 [...] Protein Urine Dipstick: Negative (03/25/24 09:00:00) Specific [place] Urine Dipstick: 1.020 (03/25/24 09:00:00) Urine Appearance Urine Dipstick: Clear (03/25/24 09:00:00) Urine Color Urine Dipstick: Yellow (03/25/24 09:00:00) Urobilinogen Urine Dipstick: Normal 0.2-1 EU/dl (03/25/24 09:00:00) pH Urine Dipstick: 6 (03/25/24 09:00:00)NormalCleveland Clinic Children'S Hospital For RehabilitationComment on above:Result Comment: Electronically Signed By: Jonathan HARDING MD\.br\Date and Time Signed: 03/25/24 09:33 EDT\.br\Electronically Co-Signed By: Robyn Mcfadden\.br\Date and Time Co-Signed: 03/25/24 09:31 EDTLab Reportson 27-12-5760Oqw [id number]#1.00TIFFNormal Cook [facility] Medical CenterUS CAROTID ART BILon 17-38-6770KX CAROTID ART BRI EXAMINATION: US CAROTID ART [...] Electronically authenticated by: DARIO WORTHINGTON Date: 2022-08-01 17:14NoOhio [facility] Surgical Hospital AUTO DIFFon 61-77-6141NCPJ #0.0 103/ulNormal0.0-0.1The [facility] SystemComment on above:Performed By: #### CBC #### [facility] [address] [place] [address] Dr. Krystle CaballeroBasophils/100 WBC (Bld)0.5 %Normal0.2-2.0The [facility] Comment on above:Performed By: #### CBC #### [facility] [address] [place] [address] Dr. Krystle Callaway #0.2 103/ulNormal0.0-0.7The [facility] SystemComment on above: Performed By: #### CBC #### [facility] [address] [place] [address] Dr. Krystle Mittalosinophils/100 WBC (Bld)3.0 %Normal0.9-7.0The [facility] Comment on above:Performed By: #### CBC #### [facility] [address] [place] [address] Dr. Krystle Mittalrythrocyte distribution width (RBC) [Ratio]12.8 %Pdknhx01.0-15.0 The [facility] SystemComment on above:Performed By: #### CBC #### [facility] [address] [place] [address] Dr. Krystle CaballeroHematocrit (Bld) [Volume fraction]47.7 %Tkcvxk01.0-54.0The [facility] SystemComment on above:Performed By: #### CBC #### [facility] [address] [place] [address] Dr. Krystle CaballeroHemoglobin (Bld) [Mass/Vol]16.2 g/xAPabmfw05.0-18.0The [facility] SystemComment on above:Performed By: #### CBC #### [facility] [address] [place] [address] Dr. Krystle Castro #0.01 10e3/ulNormal0.00-0.03The [facility] on above:Performed By: #### CBC #### [facility] [address] [place] [address] Dr. Krystle Castro %0.2 %Normal0.0-0.5The [facility] SystemCommymichigan medical center clare on above: Performed By: #### CBC #### [facility] [address] [place] [address] Dr. Krystle Waite #2.3 103/ulNormal1.2-3.8The [facility] SystemComment on above:Performed By: #### CBC #### [facility] [address] [place] [address] Dr. Krystle Barneyhocytes/100 WBC (Bld)38.1 %Neriho98.5-60.0The [facility] on above:Performed By: #### CBC #### [facility] [address] [place] [address] Dr. Krystle SegoviaUAL DIFF REQNONormalThe [facility] Health SystemCommymichigan medical center clare on above: Performed By: #### CBC #### [facility] [address] [place] [address] Dr. Krystle Pace (RBC) [Entitic mass]32.4 ayUorrim63.9-34.0The [facility] on above:Performed By: #### CBC #### [facility] [address] [place] [address] Dr. Krystle Pace (RBC) [Mass/Vol]34.0 g/qEFyshyt28.9-35.2The [facility] on above:Performed By: #### CBC #### [facility] [address] [place] [address] Dr. Krystle Pace (RBC) [Entitic vol]95.4 fLCritically high80.0-94.0The [facility]opedic Centerment on above:Performed By: #### CBC #### [facility] [address] [address] [address] Krystle Lundberg #0.6 103/ulNormal0.3-0.8The [facility] SystemComment on above:Performed By: #### CBC #### [facility] [address] [address] [address] Krystle CaballeroMonocytes/100 WBC (Bld)9.6 %Normal1.7-12.0[facility] Comment on above:Performed By: #### CBC #### [facility] [address] [place] [address] Dr. Krystle Barney #2.9 103/ulNormal1.4-6.5The [facility] SystemComment on above:Performed By: #### CBC #### [facility] [address] [place] [address] Dr. Krystle Kulkarniutrophils/100 WBC (Bld)48.6 %Nlbobv96.0-75.0The [facility] SystemComment on above:Performed By: #### CBC #### [facility] [address] [place] [address] Dr. Krystle Horowitzlet mean volume (Bld) [Entitic vol]10.0 fLNormal9.5-13.5The [facility] SystemComment on above:Performed By: #### CBC #### [facility] [address] [place] [address] Dr. Krystle CaballeroPLT219 103/npEtrnrk535-336Qox [facility] SystemComment on above: Performed By: #### CBC #### [facility] [address] [place] [address] Dr. Krystle CaballeroRBC5.00 106/ulNormal4.70-6.10The [facility]ita Health SystemComment on above:Performed By: #### CBC #### [facility] [address] [place] [address] Dr. Krystle CaballeroWBC6.0 103/ulNormal4.0-11.0The [facility] Health SystemComment on above: Performed By: #### CBC #### [facility] [address] [address] [address] Krystle CrID PROFILEon 98-31-2507MRWG-HDL RATIO NORMSTrinity Health System Twin City Medical CenterCommymichigan medical center clare on above:Result Comment: 3.3 - 4.4 LOW RISK 4.4 - 7.1 AVERAGE RISK 7.1 - 11.0 MODERATE RISK >11.0 HIGH RISKPerformed By: #### LIPID, CMP #### [facility] [address] [address] [address] Krystle CaballeroCholesterol [Mass/Vol]157 mg/dLNormal<=200[facility] Comment on above:Performed By: #### LIPID, CMP #### [facility] [address] [address] [address] Krystle CaballeroCholesterol in HDL [Mass/Vol]49 mg/uOSmthrk72-53GosAdena Pike Medical CenterComment on above:Performed By: #### LIPID, CMP #### [facility] [address] [address] [address] Krystle CaballeroCholesterol in LDL [Mass/Vol]81.8 mg/dLMercy Health Defiance HospitalComment on above:Performed By: #### LIPID, CMP #### [facility] [address] [place] [address] Dr. Krystle Espinalestercarrie.total/Cholesterol in HDL [Mass ratio]3.2 {ratio} NormalAdena Pike Medical CenterComment on above:Performed By: #### LIPID, CMP #### [facility] [address] [place] [address] Dr. Krystle CaballeroHDL NORMAL> or = 60 mg/dl - LOW CARDIOVASCULAR RISK <40 mg/dl - HIGH CARDIOVASCULAR RISKMercy Health Defiance HospitalCommymichigan medical center clare on above:Performed By: #### LIPID, CMP #### [facility] [address] [place] [address] Dr. Krystle CaballeroLDL CALC NORMALSEE [facility] Barberton CampusComment on above:Result Comment: <100 mg/dl OPTIMAL 100 - 129 mg/dl NEAR OR ABOVE OPTIMAL 130 - 159 mg/dl BORDERLINE HIGH 160 - 189 mg/dl HIGH >190 mg/dl VERY HIGH Performed By: #### LIPID, CMP #### [facility] [address] [address] [address] Krystle CaballeroTriglyceride [Mass/Vol]131 mg/dLNormal<=150The [facility] Comment on above:Performed By: #### LIPID, CMP #### [facility] [address] [address] [address] Krystle CaballeroVLDL CALC26.2 mg/dLNormalThe [facility] Health SystemComment on above: Performed By: #### LIPID, CMP #### [facility] [address] [place] [address] Dr. Krystle Hurst 14(COMP METB)on 71-10-1555Xsrrstd [Mass/Vol]3.9 g/dLNormal 3.4-5.0The [facility] Health SystemComment on above:Performed By: #### LIPID, CMP #### [facility] [address] [place] [address] Dr. Krystle CaballeroAlbumin/Globulin [Mass ratio]1.1 {ratio}NormalThe [facility] Health SystemComment on above:Performed By: #### LIPID, CMP #### [facility] [address] [place] [address] Dr. Krystle Ribeiro [Catalytic activity/Vol]91 U/ECdbttr39-946Zpp [facility] SystemComment on above:Performed By: #### LIPID, CMP #### [facility] [address] [place] [address] Dr. Krystle De Anda [Catalytic activity/Vol]44 U/TBxolik81-42Nun [facility] SystemComment on above:Performed By: #### LIPID, CMP #### [facility] [address] [place] [address] Dr. Krystle Wetzel gap [Moles/Vol]10.0 mmol/LNormalThe [facility] Comment on above:Performed By: #### LIPID, CMP #### [facility] [address] [place] [address] Dr. Krystle Esteves [Catalytic activity/Vol]14 U/LCritically obs27-46Obx [facility] SystemComment on above:Performed By: #### LIPID, CMP #### [facility] [address] [place] [address] Dr. Krystle CaballeroBilirubin [Mass/Vol]0.9 mg/dLNormal0.2-1.0[facility] Comment on above:Performed By: #### LIPID, CMP #### [facility] [address] [place] [address] Dr. Krystle CaballeroCalcium [Mass/Vol]9.4 mg/dLNormal8.5-10.1The [facility] Comment on above:Performed By: #### LIPID, CMP #### [facility] [address] [place] [address] Dr. Krystle CaballeroChloride [Moles/Vol]102 mmol/SZqtstx49-300Mzt [facility] Comment on above:Performed By: #### LIPID, CMP #### [facility] [address] [place] [address] Dr. Krystle CaballeroCO2 [Moles/Vol]31.4 mmol/DCyvptp81.0-32.0The [facility] Comment on above:Performed By: #### LIPID, CMP #### [facility] [address] [place] [address] Dr. Krystle CaballeroCreatinine [Mass/Vol]0.90 mg/dLNormal0.70-1.30The [facility] Health SystemComment on above:Performed By: #### LIPID, CMP #### [facility] [address] [place] [address] Dr. Krystle MittalGFR-AF JORDANIAN>60Normal>=60The [facility] Health SystemComment on above:Performed By: #### LIPID, CMP #### [facility] [address] [place] [address] Dr. Krystle MittalGFR-NON AF JORDANIAN>60Normal>=60The [facility] Health SystemComment on above:Performed By: #### LIPID, CMP #### [facility] [address] [place] [address] Dr. Krystle CaballeroGlobulin (S) [Mass/Vol]3.7 g/dLNoTrumbull Memorial HospitalComment on above:Performed By: #### LIPID, CMP #### [facility] [address] [place] [address] Dr. Krystle CaballeroGlucose [Mass/Vol]104 mg/mRPhzmog29-212TlfAdena [facility] Comment on above:Performed By: #### LIPID, CMP #### [facility] [address] [address] [address] Krystle CaballeroPotassium [Moles/Vol]4.4 mmol/LNormal3.5-5.1The [facility] Comment on above:Performed By: #### LIPID, CMP #### [facility] [address] [place] [address] Dr. Krystle CaballeroProtein [Mass/Vol]7.6 g/dLNormal6.4-8.2[facility] Comment on above:Performed By: #### LIPID, CMP #### [facility] [address] [place] [address] Dr. Krystle CaballeroSodium [Moles/Vol]139 mmol/WQgsfza065-449NjfAdena Pike Medical Center Comment on above:Performed By: #### LIPID, CMP #### [facility] [address] [place] [address] Dr. Krystle CaballeroUrea nitrogen [Mass/Vol]19.0 mg/dLCritically high7.0-18.0[facility] Medical CenterComment on above:Performed By: #### LIPID, CMP #### [facility] [address] [place] [address] Dr. Krystle CaballeroUrea nitrogen/Creatinine [Mass ratio]21.1 mg/mgNoTrumbull Memorial HospitalComment on above:Performed By: #### LIPID, CMP #### [facility] [address] [place] [address] Dr. Krystle Caballero Vital Signs Date TimeVital SignValuePerforming CytdojgweRcuzrcdp01-51-0133 10:03-0500Body ojenxy650.34 [facility]02-05-2025 10:03-0500Body mass index (BMI) [Ratio]33.5 kg/e8DsxiguxagCleveland Clinic [facility]02-05-2025 10:03-0500Body ujaqrh198.03 kgC[facility] Clinic [facility]02-05-2025 10:03-0500Diastolic blood mm[Hg][facility] 10-30-2024 10:03-0500Heart rate70 /[facility] 10-30-2024 10:03-0500Respiratory rate12 /[facility] 10-30-2024 10:03-0500Systolic blood mm[Hg][facility]11-11-2024 09:34-0500Body ejgkaj029.3 cmChristopher Shannan DO Work Phone: [facility] HealthcareSplxbbhcez44-96-5985 09:34-0500Body mass index (BMI) [Ratio]32.08 kg/j2Mklffaihapy Shannan DO Work Phone: [place] [facility] HealthcareZtoknahkxm21-38-8162 09:34-0500Body nywtej916.33 kgChristopher Shannan DO Work Phone: [phone]-[facility] [address]Tubruxpxaf03-59-9174 09:34-0500Diastolic blood qhntceus34 mm[Hg]Christopher Shannan DO Work Phone: [place] [facility] HealthcareNpwyaxnaet55-23-8161 09:34-0500Systolic blood sldegqbr233 mm[Hg]Christopher Shannan DO Work Phone: [place] [facility] HealthcareIcndeajpfh39-89-6710 10:05-0500Body ashxgp243.34 cmC[facility]11-05-2024 10:05-0500Body mass index (BMI) [Ratio]31.6 kg/i4KgccakeaiCleveland Clinic [facility] Hospital11-05-2024 10:05-0500Body glucwr945.68 kgC[facility] Clinic [facility]11-05-2024 10:05-0500Diastolic blood aycirujg05 mm[Hg][facility]11-05-2024 10:05-0500 Heart rate71 /[facility]11-05-2024 10:05-0500 Respiratory rate12 /[facility]11-05-2024 10:05-0500 Systolic blood mm[Hg][facility]07-01-2024 08:56-0400Blood Pressure LocationPademetria HARDING [facility]07-01-2024 08:56-0400Body mejukupusld21.6 [degF]Jonathan HARDING [facility]07-01-2024 08:56-0400Diastolic blood qfyadezk89 mm[Hg]Jonathan HARDING [facility]07-01-2024 08:56-0400Heart rate75 /minJatinderThe Combinegustavo HARDING [facility]07-01-2024 08:56-0400Respiratory rate16 /minJonathan HARDING [facility]07-01-2024 08:56-0400Systolic blood mm[Hg]Jonathan HARDING [facility]03-21-2024 10:50-0400Body oaeyyz552.34 cmDO Satish [employer] Work Phone: [facility]03-21-2024 10:50-0400 Body mass index (BMI) [Ratio]30.7 kg/m2DO Satish Ball Work Phone: [facility]03-21-2024 10:50-0400 Body oztdraaqium74.5 [degF]DO Satish Ball Work Phone: [facility]03-21-2024 10:50-0400 Body cudqou51.79 kgDO Satish Ball Work Phone: [facility]03-21-2024 10:50-0400 Diastolic blood dfbtfwat20 mm[Hg]DO Satish Ball Work Phone: [facility]03-21-2024 10:50-0400 Heart rate70 /minDO Satish Ball Work Phone: [phone]03-21-2024 10:50-0400 SaO2% (BldA) [Mass fraction]96 %DO Satish Ball Work Phone: [facility]03-21-2024 10:50-0400 Systolic blood pwfyurjg174 mm[Hg]DO Satish Ball Work Phone: [phone]-[facility]12-29-2023 11:07-0500 Diastolic blood mwuiezja31 mm[Hg]DO Satish Ball Work Phone: [phone]12-29-2023 11:07-0500 Heart rate72 /minDO Satish Ball Work Phone: [phone]12-29-2023 11:07-0500 Respiratory rate18 /minDO Satish Ball Work Phone: [phone]12-29-2023 11:07-0500 SaO2% (BldA) [Mass fraction]97 %DO Satish Ball Work Phone: [phone]12-29-2023 11:07-0500 Systolic blood ewignryk756 mm[Hg]DO Satish Ball Work Phone: [phone]12-29-2023 08:55-0500 Body dejwsv329.34 cmDO Satish Ball Work Phone: [phone]12-29-2023 08:55-0500 Body vhjthy64.79 kgDO Satish Ball Work Phone: [phone]12-13-2023 11:41-0500 Body wnxykx195.04 cmBenjamin Ball Other [place] [employer] Other 946915-75-6887 11:41-0500Diastolic blood ixbxppfo99 mm[Hg] Satish Ball Other [employer] Other 12-13-2023 11:41-0500Systolic blood qzkahuml073 mm[Hg] Satish Ball Other [employer] Other 11-21-2023 11:40-0500Body .04 cmBenjamin Ball Other [employer] Other 11-21-2023 11:40-0500Diastolic blood osqvqokl41 mm[Hg] Satish Ball Other [employer] Other 11-21-2023 11:40-0500Systolic blood rdhtxpev637 mm[Hg] Satish Ball Other [place] [employer] Other 10-31-2023 10:00-0400Body wsatll546.04 cmBenjamin Ball Other [facility] [employer] Other 10-31-2023 10:00-0400Body mass index (BMI) [Ratio] 27.04 kg/x6Nfdudtvn Ball Other [employer] Other 10-31-2023 10:00-0400Body .79 kgBenjamin Ball Other [employer] Other 10-31-2023 10:00-0400Diastolic blood lsadxxoz18 mm[Hg] Satish Ball Other [employer] Other 10-31-2023 10:00-0400Respiratory rate16 /minBenjamin Ball Other [employer] Other 10-31-2023 10:00-0400Systolic blood mm[Hg] Satish Ball Other [employer] Other 06-30-2023 08:41-0400Blood Pressure LocationPademetria HARDING [facility]06-30-2023 08:41-0400Diastolic blood xbmjcomy09 mm[Hg]Jonathan HARDING [facility]06-30-2023 08:41-0400Heart rate68 /minJonathan HARDING [facility]06-30-2023 08:41-0400Systolic blood yozhbfau815 mm[Hg]Jonathan HARDING [facility]03-16-2023 11:45-0400Body zukhaw573.04 cmDenise Salas Other [employer] Other 03-16-2023 11:45-0400Body mass index (BMI) [Ratio] 26.78 kg/x6WsequwDenise Salas Other [employer] Other 03-16-2023 11:45-0400Body xlbqoppqmvz12.7 [degF]Denise Salas Other [facility] Other 03-16-2023 11:45-0400Body hsporx06.79 kgDenise Salas Other [employer] Other 03-16-2023 11:45-0400Diastolic blood cnzstrxy37 mm[Hg] Denise Salas Other [facility] Other 03-16-2023 11:45-4902XiS5% (BldA) [Mass fraction]97 % Denise Salas Other [employer] Other 03-16-2023 11:45-0400Systolic blood ulcrvsfx266 mm[Hg] Denise Salas Other [employer] Other 03-10-2022 10:45-0500Body mpivux080.04 cmDenise Salas Other [employer] Other 03-10-2022 10:45-0500Body mass index (BMI) [Ratio] 26.29 kg/z1WaehftDenise Salas Other [employer] Other 03-10-2022 10:45-0500Body vrdnmzyrmrc93 [degF]Denise Salas Other [employer] Other 03-10-2022 10:45-0500Body cbyjyw97.98 kgDenise Salas Other [employer] Other 03-10-2022 10:45-0500Diastolic blood mm[Hg] Denise Salas Other [employer] Other 03-10-2022 10:45-7617YdG3% (BldA) [Mass fraction]97 % Denise Salas Other [employer] Other 03-10-2022 10:45-0500Systolic blood tygnszbt074 mm[Hg] Denise Pierreo Other [employer] Other Encounters Encounter DateEncounter TypeCare ProviderFacilityStart: 10-30-2024 End: 09-34-0043eejzslckniAkembpbwxPeoples Hospital Work Phone: Start: 10-30-2024 End: 58-32-7728Ikqlpqv encounter procedureFormerly [facility] Work Phone: Start: 08-05-2024 End: 67-64-8840Aaolpg flowsheetChristopher Shannan DO Work Phone: [facility] [address] [facility]Start: 08-05-2024 End: 81-17-8205Dnzxga flowsheetChristopher Shannan DO Work Phone: [facility] [address]TEStart: 08-05-2024 End: 23-75-6306Exsipu outpatient new 30 minutesChristopher Shannan DO Work Phone: [facility] [address] ROUTEComment on above:Essential tremor (Primary Dx)Start: 08-05-2024 End: 47-20-0292mysrynopckGCENVQQMLVZ HASSETTNot AvailableStart: 07-30-2024 End: 88-35-7645hyfqlgobdtNyfwrkbftPeoples Hospital Work Phone: Start: 07-30-2024 End: 77-37-7026Ajvpnggkd for general adult medical examination without abnormal findingsTriHealth Good Samaritan Hospitaltart: 07-30-2024 End: 45-79-6656Elnzwkp encounter procedureFormerly [facility] Work Phone: Start: 18-66-6501Sjg-patient / Non-visitFormerly [facility] Work Phone: Start: 39-50-7482Tth-patient / Non-visitFormerly [facility] [employer] Work Phone: Start: 03-25-2024 End: 46-26-1606oaqqibffguTghlcmp R WATERSFacility:EU BellevueStart: 03-25-2024 End: 63-24-9705Xxcnvmv encounter procedureJonathan HARDING [facility] [place] start: 12-14-2023 End: 91-30-0132ikydteuavvAouysfc T LangenbergFacility:[facility] Hospitaltart: 12-14-2023 End: 97-71-7570lbuqyjahqpBM Satish Woods Work Phone: [facility] Work Phone: Start: 12-14-2023 End: 45-19-8062Owkptjl encounter procedureDO Satish Woods Work Phone: [facility] Vascular Surgery Work Phone: Start: 09-29-2023 End: 33-65-5211kozowhekbqDnjznzko Ball Other [employer] Other Start: 45-90-3226Nbmsnhrbo encounterBenjamin BallFPG Referral CoordinatorStart: 09-22-2023 End: 62-28-5165murkayxsbqUcyesqk J DittyFacility:[facility] Hospitaltart: 09-22-2023 End: 70-99-0451Yjplwjzul to same day surgery centerDO Satish Woods Work Phone: [facility]-Digestive Health Work Phone: Start: 09-22-2023 End: 05-60-7042jusdujvtpnIS Satish Woods Work Phone: [facility] Work Phone: Start: 09-06-2023 End: 81-34-5391karugoyvdoLothuchr Ball Other [employer] Other Start: 12-70-1236Qchrdjpsn encounterBenjamin BallFPG [facility] ClinicStart: 08-15-2023 End: 11-20-4291cpmibttjzlJvuxyrni Ball Other [facility] Other Start: 89-86-5075Lbigobkyt encounterBentaz Woods Medical ClinicStart: 08-11-2023 End: 60-96-6711cfsuvesekkXutvdeoh McCormack Other [employer] Other Start: 96-97-5017Yqqpjljbv encounterLapatience Lowery [facility] Referral CoordinatorStart: 07-25-2023 End: 72-25-2672gxfruwdfaiVtmfdfjq Ball Other [facility] Other Start: 95-01-7227Fjxozzbwb for general adult medical examination without abnormal findingsBentaz GalanG Chuck Medical ClinicStart: 71-31-4407Kmwuhjgu preventive med est patient 40-64yrsBentaz GalanG [facility] ClinicStart: 07-17-2023 End: 60-39-3385ccjtetkcavVdadkwbm Ball Other [facility] Other Start: 14-09-1023Kumdcaabu for general adult medical examination without abnormal findingsBentaz GalanG [facility] ClinicStart: 02-02-0947Soguswwbe encounterBentaz GalanG [facility] ClinicStart: 03-24-2023 End: 31-29-2445Xkpoaom encounter procedurePatrick Becca HARDING [facility] start: 03-21-2023 End: 09-57-8710nsqvnrbpoxXdbmffll Ball Other [facility] Other Start: 87-51-1958Roxupbagk encounterBentaz Woods Medical ClinicStart: 68-41-0575Nilzsd-up encounterJasegun Berg Vascular SurgeryStart: 12-08-2022 End: 51-28-1931inscdaizrqPT Satish Woods Work Phone: [facility] Work Phone: Start: 12-08-2022 End: 73-40-7338Fbzkjqz encounter procedureDO Satish Woods Work Phone: [facility]-Ultrasound [place] Work Phone: Start: 08-01-2022 End: 77-65-4660fyxackdpzyIY SATISH WOODSFacility:O4Ogsrc: 98-85-0900Otuqi health examinationBentaz Woods Other [facility] [employer] Other Start: 70-50-0633Phtodkmgf for general adult medical examination without abnormal findingsDR SATISH WOODSOur Lady Of Mercy Hospital HospitalStart: 07-14-2022 End: 03-08-3969xrdgdvntkdUH SATISH WOODSFacility:I1Iipsv: 07-14-2022 End: 62-39-7223Fteygllnl for general adult medical examination without abnormal findingsDR SATISH WOODSFacility:F6Tdlwv: 39-55-6949elocshfipaIP SATISH WOODS Facility:U4Ennoi: 02-23-2022 End: 01-18-7396azfmrhvhtiPT JONATHAN HARDINGFacility:Z9Wbpdj: 12-02-2021 End: 72-13-5623edvthmbhbuYtdmtc Ruttino Other [facility] [employer] Other Start: 89-60-6136Kjlyty outpatient visit 15 minutes Denise Berg V[facility] Surgery Procedures DateProcedureProcedure DetailPerforming ClinicianStart: 71-34-7441Kxncnbfid colonoscopyDO Satish Woods Work Phone: Start: 22-44-9450KLI screeningDR SATISH WOODSComment on above:Performed By: #### PSAD #### [facility] [address] [place] [address] Dr. Krystle CaballeroStart: 89-55-2090Ixiixgjlwffoxej guided transrectal cryoablation of prostatePatrick HARDING Start: 79-43-1805XpdffltzoWjfrpwld Ball Other Start: 31-71-2966Xvgrvrs examination of patient Satish Woods Other ColonoscopyPaPushkart Depression screeningBentaz Woods Other Hernia repairPaThe Combinegustavo [employer] TonsillectomySolstice Neurosciences Plan of Treatment DateCare ActivityDetailAuthorStart: 02-11-2025 End: 85-42-5873Tfygmhh encounter /20/2025 9:40 AM EDT Office Visit [facility] [address] [facility] [address] [place] [id number] Darlene Stephen NP [address] [place] [id number] [facility]OMMARYM[facility] ROUTEStart: 05-26-2024 Influenza vaccinationInfluenza Vaccine (#1)[facility] HealthcareStart: 02-02-2024 Pneumococcal Vaccine: 65+ Years (1 of 1 - PCV)Pneumococcal Vaccine: 65+ Years (1 of 1 - PCV)[facility] HealthcareStart: 16-08-8971TbhofgojvC[facility] Clinic [facility] Start: 43-61-1800Qduzc brachial pressure indexCleveland Clinic Mercy Hospital Start: 19-76-9073Figtcnfkt for malignant neoplasm of colonNOMS HealthcarePatient EducationHemorrhoids (DC)[facility] Work Phone: Immunizations Immunization DateImmunizationNotesCare PndwtemjVyylmeyh79-15-3197LJOK-HaD-3 (COVID-19) mRNA BNT-162b2 vaxSolstice Neurosciences [facility]03-05-2021SARS-CoV-2 (COVID-19) mRNA BNT-162b2 vaxSolstice Neurosciences [facility]02-12-2021SARS-CoV-2 (COVID-19) mRNA BNT-162b2 Ronni HARDING [facility]01-14-2014meningococcal oligosaccharide (groups A, C, Y and W-135) diphtheria toxoid conjugate vaccine (MCV4O)Satish Woods Other [facility] Payers DatePayer CategoryPayerPolicy ID2024MedicareMEDICARE .[id number] [id number] Health InsuranceSHERIDAN COUNTY HEALTH COMPLEX ASSOCI[employer] OF [employer] .[id number] Health [id number] [id number] Private Health [id number]-[id number] 2.16.840.1.149833.3.57[id number] 2.16.840.1.827250.3.57[id number] 2.16.840.1.827831.3.57[id number] 2.16.840.1.079791.3.57[id number] 2.16.840.1.617449.3.57[id number] 2.16.840.1.41[id number] 2.16.840.1.567152.3.579.2.531 [id number] 2.16.840.1.548190.3.579.2.531UnknownNALC-Alyson [id number] Social History DateTypeDetailFacilitySex Assigned At [facility]art: 24-09-7295Hnthmqh smoking status NHISCurrent some day smokerTriHealth Good Samaritan Hospitaltart: 27-28-4896Wal Assigned At BirthGenesis Hospitaltart: 03-24-2023 End: 10-25-5516Mlhwpge smoking statusEx-smoker (finding)[facility] [place] smoking status NHISTobacco smoking consumption unknownRIVERTON HOSPITAL HealthcareStart: 63-63-7331Pod assigned at birthNot on fileRIVERTON HOSPITAL HealthcareStart: 52-63-0861JtsEevi (finding)[facility] Medical Equipment Procedure CodeEquipment CodeEquipment Original TextEquipment IdentifierDates Multiple peripheral artery stent, bare-metal ([id number] FDAStart: 11-03-2020 Goals DatePatient GoalDesired Activity/State Functional Status TdukBmpiqigzlvWjavroUgkwsspm26-58-7780Zbdbcsykcc StatusN/AExec[facility]06-30-2023Functional StatusN/A[facility] Clinical Notes 10-26-2020 to 08-05-2024 Note Date & KgcaXipzWvagwoyh36-95-9587 History of Present illness Narrative* Niko Campbell DO - 08/05/2024 9:30 AM EST Images from the original note were not included. Chief Complaint: Tremor Subjective Bakari Harvey David, 64 y.o., male Bakari presents today for neurological consulation at the request of Dr. Satish Woods Do for Tremor. Seen at [facility] 3-4 years ago for stent placement in left leg. Patient reports tremor in both hands, notes that more severe in left hand. He states this has been going on for about 1 year now. Notesthat he never really noticed it, however, friends have told him they can see it so he decided to have it checked out. Notes that in some positions and with certain activities sx will be worse. Patient denies inability to do daily living activities. Notes that he has always dealt with strength issues in his hands. Has been seen with us prior and EMG was completed. Patient denies further concerns. Bakari presents today for neurological consulation at the request of Dr. Satish Woods Do for Tremor. Seen at [facility]. Review of Systems Constitutional: Negative for appetite change, fatigue and fever. Respiratory: Negative for cough, shortness of breath and wheezing. Cardiovascular: Negative for chest pain, palpitations and leg swelling. Gastrointestinal: Negative for abdominal pain, constipation, diarrhea and nausea. Musculoskeletal: Negative for arthralgias, gait problem and myalgias. Neurological: Positive for tremors. Negative for dizziness, numbness and headaches. No past medical history on file. No past surgical history on file. No family history on file. Social History Tobacco Use Smoking status: Not on file Smokeless tobacco: Not on file Substance Use Topics Alcohol use: Not on file Allergies: Patient has no known allergies. Vitals: 08/05/24 0934 BP: (!) 142/94 Body mass index is 32.08 kg/m . weight: 230 lb Neurologic exam: Mental status: Awake, alert to person, place and time. Recent and remote memory are intact. Language is fluent without aphasia. Attention and concentration are normal. Fund of knowledge is appropriate for level of education. Cranial nerves: CN II: Visual acuity is normal. Visual rhodes full to confrontation. CN III, IV, : pupils equal round and reactive to light. Extraocular movements intact. No ptosis present. CN V: Facial sensation is normal. CN VII: Full and symmetric facial movement. CN VIII: Hearing is normal to finger rub bilaterally: CN IX and X: Palate elevates symmetrically. CN XI: Shoulder shrug is normal bilaterally. CN XII: Tongue is midline without atrophy or fasciculation. Motor: RUE Strength deltoid, , biceps , triceps , wrist extensors , wrist flexor , suction dredge dumping supervisor strength 5/5. LUE Strength deltoid , biceps , triceps , wrist extensors , wrist flexor , suction dredge dumping supervisor strength 5/5. RLE Strength illopsoas, quadriceps, tibialis anterior, and gastrocnemius strength 5/5. LLE Strength illopsoas, quadriceps, tibialis anterior, and gastrocnemius strength 5/5. Normal tone x4 extremities. Bulk is normal. Sensory: Sensation is intact to light touch throughout Four extremities. Reflexes: RUE biceps reflex 2+ brachioradialis reflex 2+ . LUE biceps reflex 2+ brachioradialis reflex 2+ . RLE knee reflex 2+ . LLE knee reflex 2+ . Porter's sign negative. Coordination: Whkrgz-ld-udty testing and rapid alternating movements are normal Gait: Normal Review and summary of old records: TSH is being checked by primary care Assessment/Plan Diagnoses and all orders for this visit: Essential tremor It is my impression that the patient has tremor in the left greater than right upper extremity. I do not appreciate bradykinesia. I do not appreciate rigidity. I do not appreciate other minor criteria associated with PD. At this time I feel the patient's diagnosis is most consistent with essential tremor. No family history. It is not bothersome for the patient at this time. Plan: Monitor clinically As this tremor does not appear to interfere substantially with the patient's daily life I do not suggest treatment at this time. We can consider treatment with beta blockers or primidone in the future or combination thereof should it become necessary. Pt has been fully educated on their diagnosis, treatment options, follow up plan, and return instructions documented in this encounterMissouri Southern [id number] Evaluation + Plan note Diagnostic Tests Pending * PSA Total 03/25/24 [facility] 07-01-2024 Hospital Discharge instructions Patient Education 03/25/2024 09:21:57 Prostate Cancer Screening Prostate Cancer Screening Prostate cancer screening is testing that is done to check for the presence of prostate cancer in men. The prostate gland is a walnut-sized gland that is located below the bladder and in front of therectum in males. The function of the prostate is to add fluid to semen during ejaculation. Prostatecancer is one of the most common types of cancer in men. Who should have prostate cancer screening? Screening recommendations vary based on age and other risk factors, as well as between the professional organizations who make the recommendations. In general, screening is recommended if: You are age 50 to 70 and have an average risk for prostate cancer. You should talk with your healthcare provider about your need for screening and [...] diagnosed with prostate cancer. The risk is higherif your family member's cancer occurred at an early age or if you have multiple family members withprostate cancer at an early age. ?Being a [...] is a blood test called the prostate-specific antigen(PSA) test. PSA is a protein that is [...] treatment? Where to find more information The [place] [employer]: www.cancer.org [place] [employer]: www.auanet.org Contact a health care [...] the recommended screening test for prostate cancer, butit has associated risks. Discuss the risks and [...] provider. Document Revised: 03/07/2022 Document Reviewed: 03/07/2022 [employer] Patient Education 2022 [employer]. Follow Up Care 03/24/2023 09:39:34 With:NELLI NGUYEN, Jonathan Hudson, URL Address: [facility] [address] [place] [address] [phone] When: Unknown [facility] 07-01-2024 NotePatient Education Oncology Prostate Cancer Screening Prostate cancer screening is testing that is done to check for the presence of prostate cancer in men. The prostate gland is a walnut-sized gland that is located below the bladder and in front of therectum in males. The function of the prostate is to add fluid to semen during ejaculation. Prostatecancer is one of the most common types [...] , screening in this age group is generallyreserved for men who have a 10- to [...] is a blood test called the prostate-specific antigen(PSA) test. PSA is a protein that is [...] cancer, and most men with prostate cancer diefrom a different cause. What are the risks [...] Where to find more information ? The [place] [employer]: www.cancer.org ? [place] [employer]: www.auanet.org Contact a health care [...] front of the rectum. (more content not included)...[facility]* Encounter Date Diagnosis Assessment Notes Treatment Notes Treatment Clinical Notes Jun, Wellness examination (ICD-10 - Z 00.00) Healthy diet and exercise. Reviewed age-appropriate preventive testing recommended. Jun,therosclerosis of seneca arteries of extremities with intermittent claudication, left leg (ICD-10 - I70.212)Walk daily, inspect feet daily for cuts. Continue secondary prevention measures f/u Vascular surgery Jun,Elevated cholesterol (ICD-10 - E78.00)Instructed on diet and exercise with continued statin therapy.Discussed the beneficial effects of lo wering cholesterol in reducing the risk for cerebrovascular and cardiovascular disease. Jun,Nicotine dependence, cigarettes, in remission (ICD-10 - F17.211) Continue abstinence Jun,Elevated BP without diagnosis of hypertension (ICD-10 - R03.0)This patient is instructed to consume a healthy, low-fat, low-salt diet. They are also encouraged to continue exercise to achieve/maintain a normal BMI. Patient is instructed on home BP measurements: - rest for 5 minutes w/o talking- positioned w/ feeton floor and arm supported- average best 2/3 readings w/ goal < 135/85 Stop in after couple weeks for recheck Jun,Screening PSA (prostate specific antigen) (ICD-10 - Z12.5)Yearly SANDEEP and PSA w/ Reviewed PSA, < 4 and < 0.7 increase from previous results Jun,olon cancer screening (ICD-10 - Z12.11)Asymptomatic, low risk patient. He denies change in appetite, weight or bowel habits. He denies heartburn or dysphagia He denies abdominal pain, melena or hematochezia. [facility] Other 10-23-2023 Evaluation note* Encounter Date Diagnosis Assessment Notes Treatment Notes Treatment Clinical Notes Jun, Elevated cholesterol (ICD-10 - E 78.00) Jun,Wellness examination (ICD-10 - Z00.00) Jun,therosclerosis of seneca arteries of extremities with intermittent claudication, left leg (ICD-10 - I70.212)Continue statin. Monitor BP closely. ASA 81mg daily. Walk frequently. Inspect feet daily for cuts and calluses. Jun,Screening PSA (prostate specific antigen) (ICD-10 - Z12.5) Jun,High risk medication use (ICD-10 - Z79.899) [facility] Other 06-30-2023 Hospital Discharge instructions Patient Education [...] urethra. Follow these instructions at home: Take jcct-yye-qmptfyy and prescription medicines only as told by [...] provider. Document Revised: 03/30/2022 Document Reviewed: 03/30/2022 [employer] Patient Education 2022 [employer]. Follow Up Care 03/02/2022 13:54:44 With:NELLI NGUYEN, Jonathan Hudson, URL Address: [address] [place], [place] [id number]- When:Within 1 Year(s) Comments:w/MATTHEW [facility] 03-16-2023 Evaluation note* Encounter Date Diagnosis Assessment [...] the meantime with any issues or concerns. [facility] Other 03-10-2022 Evaluation note* Encounter Date Diagnosis [...] with this plan, and denies any questions. [facility] Other 2021 History general Narrative - Reported* Type Description Date Medical History ATHEROSLEROSIS LEFT LEFT LEG Surgical HistorytonsillectomySurgical Historyhernia repair X 2Surgical History cyst removal RIGHT FOOTSurgical HistoryLLE angioplasty and stent10/2020 [facility] Other 2021 History general Narrative - Reported* Type Description Date Medical History ATHEROSLEROSIS LEFT LEFT LEG Surgical HistorytonsillectomySurgical Historyhernia repair X 2Surgical History cyst removal RIGHT FOOTSurgical HistoryLLE angioplasty and stenturgical IcktybyFelqayrzwfv64/2012[facility] Other 2021 History general Narrative - Reported* Type Description Date Medical History ATHEROSLEROSIS LEFT LEFT LEG Surgical HistorytonsillectomySurgical Historyhernia repair X 2Surgical History cyst removal RIGHT FOOTSurgical HistoryLLE angioplasty and stent/urgical VklrbozAypcxfcsewd71/2012Surgical HistoryColonoscopy09/2022H[facility]ization [facility] Other Evaluation + Plan note Future Appointments Appointment Date:03/25/2024 08:45:00 AM Scheduled Provider:Jonathan HARDING MD Location:[facility] Appointment Type:URO Office Visit Diagnostic Tests Pending * PSA Total 03/24/23 [facility] evaluation noteNo assessment information available [facility] Work Phone: Evaluation noteNo InformationNort [employer] Other Evaluation note* Diagnosis Onset Date Resolution Status PAD (peripheral artery disease) acute [facility] Work Phone: Evaluation note* Diagnosis Onset Date Resolution Status Hypercholesterolemia acuteNicotine addictionacutePeripheral vascular diseaseacuteScreening PSA (prostate specific antigen)acuteWelcome to Medicare preventive visitnoneactive [facility] Work Phone: Evaluation note* Diagnosis Essential tremor- Primary documented in this encounter [facility]* Diagnosis Onset Date Resolution Status Admit Date Essential tremor acuteFebruary 2024 9:53amHypercholesterolemiaacuteFebruary 2024 9:53am Nicotine addictionacuteFebruary 2024 9:53amPeripheral vascular diseaseacute February 2024 9:53am [facility] Work Phone: History and physical note Author Alex Blevins [facility] September 22, 2023 10:19amNote Date/TimeDecember 2022 10:19[place] [address] Gastroenterology H&P Signed Patient: Bakari Hernandez MR#: [id number] : 1960 Acct:[id number] Age/Sex: 63 / M Adm Date: 3 Loc: Room: Type: [facility] Attending Dr: Alex Blevins MD Copies to: DO Alex Cunha MD~ Date of Service: 09/22/2023 HISTORY & PHYSICAL: Patient's history with special attention to the cardiovascular, pulmonary systems and the current problem was reviewed with the patient immediately prior to the procedure. Present medications and doses reviewed in the EMR. Allergies and pertinent laboratory tests were also re viewedat this time in the EMR. The physical [...] signed by Alex Blevins MD> 09/22/23 1019 [facility] Work Phone: Hospital course Narrative No data available for this section [facility] Hospital Discharge instructions Additional Instructions DISCHARGE INSTRUCTIONS [...] NOT operate machinery such as power tools, Smappon mowers, snow blowers, sewing machines, etc. for [...] years. -Follow up with PCP. -Office number [phone].[facility] Work Phone: Progress note No data available for this section [facility] reason for visit Narrative* Consultation (Routine) - ClosedSpecialtyDiagnoses / ProceduresReferred By ContactReferred To Contact Neurology Diagnoses Essential tremor Procedures [place] OFFICE/OUTPATIENT [facility] 30 MINUTES Satish Woods MD [address] [place] [address] Phone: tel: fax: Daniel Irby MD [phone] [place] [address] Phone: tel: fax: Referral IDStatusReasonStart DateExpiration DateVisits RequestedVisits [id number] Consult and Treat / [facility] Healthcare Summary Purpose Family History Relationship Condition Age at Onset Recorded Date/T juan luis father Unknown Malignant neoplasmUnknownNot SpecifiedHypertensionUnknownsisterMalignant neoplasm of liverUnknownDeceasedUnknown Relationship Condition Age at Onset Recorded Date/T juan luis father Unknown Malignant neoplasmUnknownmotherHypertensionUnknownsisterMalignant neoplasm of liverUnknownDeceasedUnknown Advance Directives Advance Directive Response Recorded Date/ Time Advance Directives No November 02, 2020 5:14pm Advance Directive Response Recorded Date/ Time Advance Directives No November 02, 2020 4:14pm Chief Complaint and Reason for Visit Chief Complaint I70.213 Chief Complaint Screening Chief Complaint Screening 1 year follow up; PAD; DEQUAN's at 10:00am Chief Complaint Screening 1 year follow up; PAD; DEQUAN's at 10:00amReason for VisitPAD (peripheral artery disease) Chief Complaint CC Adult Risk Strati fication WellnessReason for VisitHypercholesterolemia Nicotine addiction Peripheral vascular disease Screening PSA (prostate specific antigen) Welcome to Medicare preventive visit Chief Complaint Admit Date 3 month f/u October 30, 2024 9 :53am Reason for Visit Admit Date Essential tremor October 30, 2024 9 :53am Hypercholesterolemia October 30, 2024 9:53am Nicotine addiction October 30, 2024 9 :53am Peripheral vascular disease October 9:53am Reason for Referral Reason *Waiting for appt Mr. Hernandez is being referred for screening colonoscopy, his last colonoscopy was in 2012. Diagnosis 1 Colon cancer screeni arlene (Z12.11) Referral Organization [facility] Referring Provider First Name Satish Referring Provider Last Name Chuck Referring Provider Specialty Internal Me dicine Referred Organization [facility] Gastroenterolo gy Referred Provider Alex Blevins Referred Address [address],[place] [address] ,[place], [place],[address] Referred Provider Specialty Gastroentero logy Referral Priority [...] and content) DATE CREATED AUTHOR 09/17/2022 [facility] DATE CREATED AUTHOR AUTHOR'S ORGANIZ ATION 12/26/2023 [facility] DATE CREATED AUTHOR AUTHOR'S ORGANIZ ATION 05/02/2024 [facility] DATE CREATED AUTHOR AUTHOR'S ORGANIZ ATION 08/06/2024 [facility] [employer] Care Teams (unrecognized sec tion and content) Team Status: Active Member Role Status Dates Satish Woods , Primary Care Provider Active Team Status: Inactive Member Role Status Dates Satish Woods , DO Primary Care Provide r, Attending Provider Active Start: October 30, 2024 End: October 30, 2024 Team Status: Active Member Role Status Dates Satish Woods , Primary Care Provider Active Team Status: Active Member Role Status Dates Satish Woods , DO Primary Care Provide r, Attending Provider Active Start: July 24, 2024 Team Status: Active Member Role Status Dates Satish Woods , Primary Care Provide r, Attending Provider Active Start: July 26, 2024 Team Status: Inactive Member Role Status Dates Satish Woods , Primary Care Provide r, Attending Provider Active Start: July 30, 2024 End: July 30, 2024 Team Status: Inactive Member Role Status Dates Satish Woods DO Primary Care Provider Active Denise Salas NP-CAttending ProviderActive Team Status: Inactive Member Role Status Dates Satish Woods DO Primary Care Provider Active Jj Baez ProviderActive Team Status: Inactive Member Role Status Dates Satish Woods DO Primary Care Provider Active Start: September 22, 2023 End: September 22Jj Garrett ProviderActiveStart: September 22, 2023 End: September 22, 2023 Team Status: Inactive Member Role Status Dates Satish Woods DO Primary Care Provider Active Start: December 14, 2023 End: December 14, 2023Jj Rao ProviderActiveStart: December 14, 2023 End: December 14, 2023Team MemberRelationshipSpecialtyStart DateEnd Date Satish Woods MD [address] [place] [phone] PCP - GeneralInternal Ibwhqkca37/6/24Team MemberRelationshipSpecialtyStart Date End Date Satish Woods MD [address] [place] [address] PCP - GeneralInternal Nqphimjj05/6/24 Team Status: Inactive Member Role Status Dates Satish Woods , DO Primary Care Provide r, Attending Provider Active Start: October 30, 2024 End: October 30, 2024 Goals (unrecognized section and content) Goals may [...] BE BASED ON THE PRIMARY CLINICAL RECORDS. [facility]. provides no warranty or guarantee of the accuracy or completeness of information in this document.
[2025-07-29 11:07] LABS: Hematocrit 48.0 % (42.0-54.0); Hemoglobin 16.3 g/dL (14.0-18.0); Immature Granulocytes Abs Auto 0.02 10^3/uL (0.00-0.03); Immature Granulocytes Pct Auto 0.4 % (0.0-0.5); Lymphocytes Absolute Auto 2.2 10^3/uL (1.2-3.8); Mean Corpuscular HGB Conc 34.0 g/dL (29.9-35.2); Mean Corpuscular Hemoglobin 32.5 pg (25.9-34.0); Mean Corpuscular Volume 95.6 fL (80.0-94.0); Platelet Count 214 10^3/uL (150-450); Red Blood Count 5.02 10^6/uL (4.70-6.10); White Blood Count 5.7 10^3/uL (4.0-11.0)
[2025-07-29 11:36] LABS: Alanine Aminotransferase 50 U/L (16-63); Albumin Globulin Ratio 1.0; Albumin Level 3.7 g/dL (3.4-5.0); Alkaline Phosphatase 95 U/L (46-116); Anion Gap 14.4; Aspartate Amino Transferase 18 U/L (15-37); Blood Urea Nitrogen 18.0 mg/dL (7.0-18.0); Calcium 9.1 mg/dL (8.5-10.1); Carbon Dioxide 25.6 mmol/L (21.0-32.0); Chloride 103 mmol/L (98-107); Cholesterol 167 mg/dL (<=200); Estimated GFR (African America >60 (>=60 mL/min/1.73m^2); Estimated GFR (Non-African Ame >60 (>=60 mL/min/1.73m^2); Globulin 3.6 g/dL; Glucose 102 mg/dL (74-106); HDL Cholesterol 50 mg/dL (40-60); Potassium 4.0 mmol/L (3.5-5.1); Sodium 139 mmol/L (136-145); Total Protein 7.3 g/dL (6.4-8.2); Triglycerides 156 mg/dL (<=150); VLDL CHOLESTEROL 31.2 mg/dL
== END 2025-07-29 10:17 | disposition home or self-care (01) ==
PROVIDERS: PCP Internal Medicine; Visit Provider Internal Medicine
DX: E78.00 Pure hypercholesterolemia, unspecified (principal); I73.9 Peripheral vascular disease, unspecified; R53.83 Other fatigue; Z12.5 Encounter for screening for malignant neoplasm of prostate
CPT/HCPCS: 36415; 80053; 80061; 85025; G0103

== ENCOUNTER 2025-08-12 09:54 | Outpatient (OUT) | payer MEDICARE, OTHER, SELFPAY ==
--- OUTSIDE RECORDS SUMMARY | 2025-08-05 06:02 | XMS_ITS | Continuity of Care Document ---
Author Organization [facility] Address [address] [place] [address] Phone Care Team Providers Care Cycle Repairer Name Role Phone Satish Woods DO Primary Care Provider [phone] Satish Woods DO Attending Provider [phone] Care Teams Patient Care Team Team Status: Active Member Role/Relationship Status Dates Satish Woods DO Primary Care Provider Active Patient Care Team Team Status: Active Member Role/Relationship Status Dates Satish Woods DO Primary Care Provider Active Start: July 29, 2025 Latosha Cunha ProviderActiveStart: July 29, 2025 Patient Care Team Team Status: Inactive Member Role/Relationship Status Dates Satish Woods DO Primary Care Provider Active Start: August 05, 2025 End: August 05Latosha Garnica ProviderActiveStart: August 05, 2025 End: August 05, 2025 Chief Complaint and Reason for Visit Chief Complaint Admit Date wellness August 05, 2025 9:59am Reason for Visit Admit Date Essential tremor August 05, 2025 9:59am GERD (gastroesophageal reflux disease) N ovember 2024 9:59am Hypercholesterolemia August 05, 2025 9:59am Nicotine addiction August 05, 2025 9:59am Peripheral vascular disease July 9:59am Screening PSA (prostate specific antigen ) August 05, 2025 9:59am Welcome to Medicare preventive visit Nov ember 2024 9:59am Allergies, Adverse Reactions, Alerts Allergen Type Severity Reaction Last Updated Verified Status No Known Allergies Allergy Unknown August 05, 2025 10:09amYesActive Social History Smoking Status Status Start Date End Date Date of Observa tion Ex-smoker (finding) September 22, 2023 8:39am Observation Status Observation Response Date of Response Legal Sex Male (finding) Sex Assigned At BirthMaleMay 1959 Family History Relationship Condition Age at Onset Recorded Date/T juan luis father Unknown Malignant neoplasmUnknownmotherHypertensionUnknownsisterMalignant neoplasm of liverUnknownDeceasedUnknownMalignant neoplasmUnknown Problems Active Problems Problem Diagnosis/Recorded Date Onset Date Status C omments Nicotine addiction July 22, 2024 11:43am Unknown A ctive LDCT: no suspicious nodules - 07/2024, Age started 21, ppd 1, age/year quit 53y/o, 2012. Screening PSA (prostate specific antigen) July 22, 2024 11:46am Unknown Active TRUS/ bx - remote,PSA: 1.64 - 2021, 1.83 - 2022, 1.55 - 06/2024, 1.81 - 07/2025 Essential tremor July 30, 2024 8:19pm Unknown Acti ve [facility] 20[facility] 11:42amUnknownActivePeripheral vascular diseaseOctsaint [facility] 2023 11:43amUnknownActives/p angioplasty left SFA - 2020 GERD (gastroesophageal reflux disease)October 30, 2024 10:38amUnknownActive Medications Medication Status Dose Units Route Directions Qty Days Refills S tart Date Stop Date End Date Reason(s) Instructions Adherence Atorvastatin 40 mg tablet Discontinued 0 .ROUTE.FEDPIJQ125Xxnvpyi 10th, 2024 11:40amOctober 2024 8:03amTAKE 1 TABLET BY MOUTH EVERY DAY IN THE EVENINGOmeprazole 40 mg capsule,delayed release(DR/EC)Discontinued0.ROUTE.KCMRXJN739Rspxcfzr 27th, 2024 5:30pmFebruary 2024 10:01amTAKE 1 CAPSULE BY MOUTH ONCE A DAY ON AN EMPTY STOMACH 30 MINUTES PRIOR TO BREAKFASTAtorvastatin 40 mg tabletActive0.ROUTE.FVVKROC630 July 07, 2025 8:03amTAKE 1 TABLET BY MOUTH EVERY DAY IN THE EVENINGComplies with drug therapyAtorvastatin 40 mg kvyxceJeyvqgenhnwl88FEGJSyvdaPptilyoz 2020 12:00amOctober 2023 11:41amAspirin 81 mg CjmjsmSpktnq25BFLAQnunc November 03, 2020 12:00amComplies with drug therapy Bcdr-U1-X-K-Rseaca-Hjwozcj-Min (Icaps) 3,233-3-947-75 mskd-pm-cm-unit Tablet Extended CcnrvwmMjxvma7RSSWIDejbqXpuervan 2020 12:00amComplies with drug zrannzpYowww-4e-Iil-Epa-Fish Oil-D3 (Fish Oil-Vit D3) 360 mg-1,200 mg -1,000 unit XrseabjNajbom7RYXGCKtdyv times dailyFebruary 2020 12:00amComplies with drug therapyClopidogrel 75 mg MpatepZcwcakzcavkx21PXKCSxozz9129916Wngqyyvo 2020 12:00amDecember 2022 1:10pmPADClopidogrel 75 mg gkkjjaUpzgihsmpnqj08 MGPODailyNov2023 12:00amNovember 2023 10:38amOmeprazole 40 mg capsule,delayed release(DR/EC)Fotoujimyeut83PLLVAjvyl23319Dlglltnu 5th, 2024 12:00amNovember 2023 5:30pmTake on empty stomach, 30 minutes prior to bkfst Immunizations Immunization Event Date Not Given Reason Dose Number [employer] Lot Number Reason(s) Given Vaccine Information Statement (VIS) Detail Administration Location COVID-19 mRNA, Comirnaty ([employer]) August 27, 2021 COVID-19 mRNA, Comirnaty ([employer])November [id number] mRNA, Comirnaty ([employer])November [id number] HLY1VDaaxhgc 2013 Medical Equipment Device Date Implanted Device Details Multiple peripheral artery s tent, bare-metal November 03, 2020 LAURIE: [id number] Issuing Agency: [employer] Device Id: [id number] Expiration Date: 2022-04-24 Lot Number: [id number] Relevant Diagnostic Tests and/or Laboratory Data Laboratory Results Test Collection Date/Time Result Date/Time Result Interpretation Reference Range Result Comment Performing Site Basophils # (Auto) July 29, 2025 10:43am July 29, 2025 10:43am 0.1 10 3/uL 0.0-0.1Cholesterol/HDL RatioNoveb[facility] 2024 10:43amNovemb2024 10:43am 3.33.3 - 4.4 LOW RISK4.4 - 7.1 AVERAGE RISK7.1 - 11.0 MODERATE RISK>11.0 HIGH RISKAnion GapNov2024 10:43amNovemb2024 10:43am14.4Prostate Specific Antigen ScreenNov2024 10:43amNovemb2024 10:43am1.81 ng/mL<=4.00Basophils (%) (Auto)July 29, 2025 10:43amNovemb2024 10:43am0.9 %0.2-2.0Cholesterol LevelNov2024 10:43amNovemb2024 10:30vt650 mg/dL<=200Albumin/Globulin [facility] 2024 10:43amNove2024 10:43am1.0Eosinophils # (Auto)July 29, 2025 10:43amNove2024 10:43am0.1 10 3/uL0.0-0.7HDL CholesterolNov2024 10:43amNovemb2024 10:43am50 mg/dL40-60> or =60 mg/dl - LOW CARDIOVASCULAR RISK<40 mg/dl - HIGH CARDIOVASCULAR RISKAlbuminNov2024 10:43amNovemb2024 10:43am3.7 g/dL3.4-5.0Eosinophils (%) (Auto)July 29, 2025 10:43amNovemb2024 10:43am1.4 %0.9-7.0LDL Cholesterol, CalculatedNov2024 10:43amNovemb2024 10:43am86.0 mg/dL<100 mg/dl TNBQALD796-596 mg/dl NEAR OR ABOVE ASVCMAV292-628 mg/dl BORDERLINE JJUS321-862 mg/dl HIGH>190 mg/dl VERY HIGHAlkaline PhosphataseNov2024 10:43amNovember 2024 10:43am95 U/V59-770MzcswvahvnOpzzptod 2024 10:43amNovember 2024 10:43am48.0 % 42.0-54.0Triglycerides LevelNovember 2024 10:43amNovember 2024 10:43am 156 mg/dLAbove high normal<=150Alanine Aminotransferase (ALT/SGPT)July 29, 2025 10:43amNovember 2024 10:43am50 U/J45-40KgxcbtotopYojunhjv 2024 10:43amNovember 2024 10:43am16.3 g/dL14.0-18.0VLDL CholesterolNovember 2024 10:43amNovember 2024 10:43am31.2 mg/dLAspartate Amino Transf (AST/SGOT)July 29, 2025 10:43amNovember 2024 10:43am18 U/L15-37 Immature Granulocyte # (Auto)July 29, 2025 10:43amNovember 2024 10:43am0.02 10 3/uL0.00-0.03BUN/Creatinine RatioNovemb2024 10:43am July 29, 2025 10:43am22.8Immature Granulocyte % (Auto)July 29, 2025 10:43amNovember 2024 10:43am0.4 %0.0-0.5Blood Urea NitrogenNovember 2024 10:43amNovember 2024 10:43am18.0 mg/dL7.0-18.0Lymphocytes # (Auto) July 29, 2025 10:43amNovember 2024 10:43am2.2 10 3/uL1.2-3.8Calcium LevelNovember 2024 10:43amNovember 2024 10:43am9.1 mg/dL8.5-10.1 Lymphocytes (%) (Auto)July 29, 2025 10:43amNovember 2024 10:43am39.3 % 20.5-60.0Chloride LevelNovember 2024 10:43amNovember 2024 10:44bj296 mmol/H62-845Vnrp Corpuscular HemoglobinNovember 2024 10:43amNovember 2024 10:43am32.5 pg25.9-34.0Carbon Dioxide LevelNovember 2024 10:43am July 29, 2025 10:43am25.6 mmol/L21.0-32.0Mean Corpuscular Hemoglobin ConcentNovember 2024 10:43amNovember 2024 10:43am34.0 g/dL29.9-35.2 CreatinineNovember 2024 10:43amNovember 2024 10:43am0.79 mg/dL 0.70-1.30Mean Corpuscular VolumeNovember 2024 10:43amNovember 2024 10:43am95.6 fLAbove high mioouq26.0-94.0Estimated GFR ()July 29, 2025 10:43amNovember 2024 10:43am>60>=60 mL/min/1.73m 2Monocytes # (Auto)July 29, 2025 10:43amNovemb2024 10:43am0.6 10 3/uL0.3-0.8 Estimated GFR (Non- AmericanNovember 2024 10:43amNovember 2024 10:43am>60>=60 mL/min/1.73m 2Monocytes (%) (Auto)July 29, 2025 10:43am July 29, 2025 10:43am9.7 %1.7-12.0GlobulinNovember 2024 10:43am July 29, 2025 10:43am3.6 g/dLMean Platelet VolumeNovember 2024 10:43am July 29, 2025 10:43am10.6 fL9.5-13.5Glucose LevelNovember 2024 10:43am July 29, 2025 10:90jd152 mg/iY53-161Jpperxwamma # (Auto)July 29, 2025 10:43amNovemb2024 10:43am2.7 10 3/uL1.4-6.5Potassium LevelNov2024 10:43amNovember 2024 10:43am4.0 mmol/L3.5-5.1Neutrophils (%) (Auto) July 29, 2025 10:43amNovember 2024 10:43am48.3 %43.0-75.0Sodium Level July 29, 2025 10:43amNovember 2024 10:80pn262 mmol/P665-869Mhkwscot CountNov2024 10:43amNovember 2024 10:69yx169 10 3/rN085-754Abrra BilirubinNov2024 10:43amNovember 2024 10:43am1.4 mg/dLAbove high normal0.2-1.0Red Blood CountNov2024 10:43amNovember 2024 10:43am 5.02 10 6/uL4.70-6.10Total ProteinNov2024 10:43amNovember 2024 10:43am7.3 g/dL6.4-8.2Red Cell Distribution WidthJuly 29, 2025 10:43am July 29, 2025 10:43am13.0 %11.0-15.0Corrected White Blood CountJuly 29, 2025 10:43amNovember 2024 10:43am5.7 10 3/uL4.0-11.0 Vital Signs Vital Reading Result Reference Range Collection Date/Time Height 71 [in_i] August 05, 2025 10:38kxZcgduy403.54 kgNov2024 10:18amHeart Rate 72 /ikq27-266LfficzunAugust 05, 2025 10:18amRespiratory rate16 /mqt37-12WlmlsxxqAugust 05, 2025 10:18amBP Mwjipxqu739 mm[Hg]100-140August 05, 2025 10:18amBP Cosrtgpsp64 mm[Hg]60-100August 05, 2025 10:18amBMI (Body Mass Index)34.6 kg/g0YevgdteuAugust 05, 2025 10:18am Advance Directives Advance Directive Response Recorded Date/ Time Advance Directives No November 02, 2020 4:14pm Insurance Providers Guarantor Bakari Hernandez Address [address] [place] [address] [address] [facility] [address]Vpnimmn Info.Home Phone: Payer Group Member ID Coverage Type Subscriber Relationship to Subscriber Effective Date Expiration Date Medicare [id number] J Baptista Id: [id number] [address] [facility] [address] Home Phone: [phone]-Jziwwdc [place] [id number] Hernandez Id: [id number] [address] [place] [address] [address] [facility] [address] Home Phone: [facility] Retired Id: [id number] J Baptista Id: [id number] [address] [place] [address] [address] [facility] [address] Home Phone: Self Encounters Encounter Location(s) Arrival/Admit Date Discharge/Departure Date Discharge/Departure Disposition Provider(s) Non-patient / Non-visit -[facility] 2024 10:43am JERONIMO Cunhaeparted Physician/Provider [facility] 20[facility] 10:57amDischarged to home care or self care (routine discharge)Satish Woods , DO Recent Diagnosis Onset Date Admit Date Essential tremor Unknown August 05, 2025 9:59am GERD (gastroesophageal reflux disease) Unknown August 05, 2025 9:59am Hypercholesterolemia Unknown August 052024 9:59am Nicotine addiction Unknown July 9:59am Peripheral vascular disease Unknown Silke hitchcock 2024 9:59am Screening PSA (prostate specific antigen) Unknow n August 05, 2025 9:59am Welcome to Medicare preventive visit Unknown August 05, 2025 9:59am Assessments Diagnosis Onset Date Resolution Status Admit Date Essential tremor acuteNovember 11th, 2025 9:59amGERD (gastroesophageal reflux disease)acute August 05, 2025 9:59amHypercholesterolemiaacuteNovember 2024 9:59am Nicotine addictionacuteNov2024 9:59amPeripheral vascular disease acuteNov2024 9:59amScreening PSA (prostate specific antigen)acute August 05, 2025 9:59amWelcome to Medicare preventive visitnoneactiveAugust 05, 2025 9:59am Plan of Treatment Author [facility]ish Woods [facility]ored[facility] 10:47amI have instructed this patient on the recommended lifestyle changes, which includes a low fat, high fiber diet along with a regular exercise routine. I have also reviewed the recommended age-appropriate preventive testing for this patient. I have also reviewed the recommended vaccines for their age and risk factors. I have instructed this patient on a low fat, high fiber diet and exercise. I have discussed the primary and secondary prevention benefits attributed to lowering LDL cholesterol. I have also discussed the medical treatment of elevated cholesterol, which is based on the 10 year ASCVD risk. They are aware of the hazards associated with tobacco use, including but not limited to respiratory infections, vascular disease and cancers. Scheduled for yearly LDCT chest for lung cancer screening is recommended. Tobacco use: - age started 21, ppd 1, age/year quit LDCT: no suspicious nodules - 07/2024, Age started 21, ppd 1, age/year quit 53y/o, 2012. Instructed to inspect feet daily for cuts and calluses. Instructed to walk daily until develop pain, rest and restart Instructed on secondary prevention measures: ASA, Statin Angioplasty/stent left SFA - 2020 f/u Vascular Surgery Reassured that his symptoms are not consistent with PD. He was instructed to avoid stimulants. TSH was ordered Informed about medical therapy, which would include BB and Primidone Due to concerns, will refer to Neurology for evaluation I have recommended yearly PSA testing. I have informed him that the PSA can be elevated w/ cancer, infection and enlarged prostates. I have explained to the patient, that If his PSA is elevated, while there are many causes, referral will be recommended to r/o cancer. He would be referred to Urology, who may recommend an MRI, TRUS/bx or possibly continued monitoring. He is agreeable to this plan of action TRUS/bx - remote, PSA: 1.64 - 2021, 1.83 - 2022, 1.55 - 06/2024, 1.81 - 07/2025 I have instructed this patient to avoid lying flat after eating.?? I have also recommended to avoid eating 2 hours prior to bedtime.?? They were also informed that smaller, frequent meals may be better tolerated. I have discussed additional treatment options for persistent symptoms, which includes: weight loss, H2 blockers and PPI. I have also instructed them to notify the office with any pain or difficulty swallowing. He completed 1 month of PPI therapy w/ complete resolution of symptoms. He did not complete 3 mo treatment due to mix up w/ Rx. Since he is symptom free, would not restart. Future Tests Future scheduled test information is unavailable Pending Tests Pending diagnostic test information is unavailable Future Visits Future appointment information is unavailable Future Procedures Future procedure information is unavailable Future Medications Future medication information is unavailable Patient Instructions Patient instructions are unavailable
--- NOTE | 2025-08-12 09:56 | CT_ITS ---
The [address] [address] Patient Name: CHELE NATH MRN: [id number] date: 1960 Sex: M Assigned Patient Location: CT Current Patient Location: CT Accession/Order Number: [id number] Exam Date: 08/12/2025 10:23 Report Date: 08/12/2025 11:00 At the request of: EDUARDO DIAS DO Procedure: CT lung screening low-dose LOW-DOSE SCREENING CHEST CT WITHOUT CONTRAST COMPARISON: 08/07/2024 CLINICAL DATA: Current smoker of cigars for years. Spiral axial unenhanced low-dose images were obtained through the chest. Images were reviewed using both narrow and wide window settings. This CT exam was performed using one or more following dose reduction techniques: Automated exposure control, adjustment of the mA and/or kV according to patient size, or use of iterative reconstruction technique. The heart is top normal in size. No pericardial effusion is present. Minor coronary disease is visualized. The ascending aorta is ectatic. There is mild plaque at the aortic arch. There are a few small nonpathologic mediastinal lymph nodes. There are calcified left hilar granulomas. Minor gynecomastia is seen. There are subtle chronic midthoracic wedge deformities. Endplate spurring is also seen. There is minimal atelectasis or scarring at the bases. No developing consolidation, pleural effusion or pneumothorax is identified. No pulmonary nodularity is noted. Limited imaging through the upper abdomen shows no contributory findings. CT/CT lung screening low-dose IMPRESSION: NO PULMONARY NODULARITY. Lung RADS category 1 - negative Twelve-month low-dose CT follow-up suggested. Impression dictated by: Marixa Shepherd M.D. 08/12/2025 11:00 AM Dictation Location: [place] [address] Electronically authenticated by: [id number] Y Date: 08/12/2025 11:00
--- OUTSIDE RECORDS SUMMARY | 2025-08-12 10:01 | XMS_ITS | CCD ---
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 Name Role Phone Denise Salas Unavailable CHUCK, DR CLARK Admitting Unavailable CHUCK, DR CLARK Primary Care Unavailable CHUCK, DR CLARK Consulting Unavailable CHUCK, DR CLARK Attending Unavailable ELIN, DR DARIO Munson Consulting Unavailable CHUCK, DR CLARK Admitting Unavailable CHUCK, DR CLARK Primary Care Unavailable CHUCK, DR CLARK Consulting Unavailable CHUCK, DR CLARK Attending Unavailable HARDING, DR MCCLOUD Admitting Unavailable NELLI, DR MCCLOUD Consulting Unavailable NELLI, DR MCCLOUD Attending Unavailable CHUCK, DR CLARK Primary Care Unavailable CHUCK, DR CLARK Attending Unavailable CHUCK, DR CLARK Admitting Unavailable CHUCK, DR CLARK Primary Care Unavailable DO Satish Woods Primary Care Provider PHILLIP Salas Attending Provider Satish Woods Unavailable SATISH WOODS Primary Care Physician [phone] Roldan Lowery Unavailable DO Satish Woods Primary Care Provider MD Alex Blevins Attending Provider DO Satish Woods Primary Care Provider MD Alex Blevins Attending Provider Alex Blevins Attending Unavailable Alex Blevins Admitting Unavailable Satish Woods Primary Care Unavailable Tyler Tejada Admitting UnavailSatish Le Primary Care Unavailable Tyler Tejada Attending UnavailJonathan Stack Attending Unavailable NIKO CAMPBELL Attending Unavailable SATISH WOODS Referring Unavailable Satish Woods MD Primary Care Provider Satish Woods DO Primary Care Provider Satish Woods DO Attending Provider Allergies Allergy ClassificationReported Allergen(s)Allergy TypeDate of OnsetReaction(s) Facility (1 source)patient allergy list reviewed by nurse or physiciaPropensity to adverse [id number]:Keycoopt Other (1 source)No Known Medication Allergies; Translations: [No Known Medication Allergies]Propensity to adverse reactions (disorder)[facility] Medications Current Medications MedicationDrug Class(es)DatesSig (Normalized)Sig (Original)aspirin 81 mg oral tablet (20 sources)Platelet Aggregation Inhibitor, Nonsteroidal Anti-inflammatory Drug Start: 54-95-0263weuv 1 tablet by mouth once dailyAspirin 81 mg Tablet Active 81 MG PO Daily November 03, 2020 12:00am Complies with drug therapyStart: 27-16-3510pfuhnpb 81 mg Chew Tab mg tab(s), Chewed, Daily, Refills(s) 0 Start Date: 02/07/20 Status: Orderedtake 1 tablet by mouth once dailyaspirin 81 MG EC tablet Take 81 mg by mouth Daily Activeatorvastatin 40 mg oral tablet (20 sources)HMG-CoA Reductase InhibitorStart: 07-04-2024 End: 70-41-7137ipur 1 tablet by mouth once daily in the eveningAtorvastatin 40 mg tablet Active 0 .ROUTE .COMPLEX 90 3 July 07, 2025 8:03am TAKE 1 TABLET BY MOUTH EVERY DAY IN THE EVENING Complies with drug therapyStart: 02-06-2020 End: 11-01-5566nbpe 1 tablet by mouth once dailyAtorvastatin 40 mg tablet Discontinued 40 MG PO Daily November 03, 2020 12:00am July 041:41am citric acid 68.6 MG/ML / magnesium oxide 20 MG/ML / picosulfate sodium 0.0571 MG/ML Oral Solution [Clenpiq] (2 sources)Start: 65-09-7827psal 1 dose by mouth twice daily in the evening Clenpiq 10-3.5-12 MG-GM -GM/175ML 175 mL the first dose at 3:00 pm and 175 ml second dose at 9:00 pm Orally twice a day for 1 days PLEASE CHECK ALLERGIES Jul, Activeclenpiq 10-3.5-12 mg-gm -gm/175ml solution (2 sources)Start: 62-24-9682evbc 1 dose by mouth twice daily in the evening Clenpiq 10-3.5-12 MG-GM -GM/175ML 175 mL the first dose at 3:00 pm and 175 ml second dose at 9:00 pm Orally twice a day for 1 days PLEASE CHECK ALLERGIES Jul, Activeeye vitamin (2 sources)Start: 02-85-7680jbp vitamin eye vitamin Start Date: 02/06/20 Status: OrderedFish Oil + D3 5464-5770 MG-UNIT (9 sources)Start: 82-89-5678fjyl 1 capsule by mouth three times dailyFish Oil + D3 5221-6941 MG-UNIT 1 capsule Orally Three times a day Jul, Active Start: 61-81-0803esfs 1 capsule by mouth three times dailyFish Oil + D3 1200- 1000 MG-UNIT 1 capsule Orally Three times a day for 30 day(s) Jul, ActiveFish Oils (2 sources)Start: 38-62-2973Itfc Oil Oral, Refill(s) 0 Start Date: 02/06/20 Status: OrderedICaps - (9 sources)Start: 66-08-9992PMuem - as directed Orally Jul, Active Xbdrf-4f-Ppf-Epa-Fish Oil-D3 (Fish Oil-Vit D3) 360 mg-1,200 mg -1,000 unit Capsule (7 sources)Start: 35-42-5920etdb 1 capsule by mouth three times daily Dkdsm-2u-Fdr-Epa-Fish Oil-D3 (Fish Oil-Vit D3) 360 mg-1,200 mg -1,000 unit Capsule Active 1 CAP PO Three times daily November 03, 2020 12:00am Complies with drug therapyStart: 58-08-1938uame 1 capsule by mouth three times daily Avmih-0d-Khh-Epa-Fish Oil-D3 (Fish Oil-Vit D3) 360 mg-1,200 mg -1,000 unit Capsule Active 1 CAP PO Three times daily November 03, 2020 12:00amStart: 16-09-3428ccst 1 capsule by mouth three times bnnleBbgmy-0d-Hss-Epa-Fish Oil-D3 (Fish Oil-Vit D3) 360 mg-1,200 mg -1,000 unit Capsule Active 1 CAP PO Three times daily November 03, 2020 1:22qtAbys-Z4-J-L-Qndjcj-Zchxyig-Min (Icaps) 3,233-7-874-75 fdxk-hg-aj-unit Tablet Extended Release (7 sources)Start: 73-79-7910uikh 1 tablet by mouth once daily Ybta-Y2-Z-D-Xlaqyb-Fitgubs-Min (Icaps) 3,777-9-104-75 gyss-zx-gk-unit Tablet Extended Release Active 1 TAB PO Daily November 03, 2020 12:00am Complies with drug therapyStart: 25-18-2757txuv 1 tablet by mouth once daily Vbvy-Y4-S-F-Gwobco-Gqaadec-Min (Icaps) 3,135-0-873-75 opmu-vh-ky-unit Tablet Extended Release Active 1 TAB PO Daily November 03, 2020 12:00amStart: 82-22-9828zelv 1 tablet by mouth once jeioyQysh-U3-N-T-Wsweic-Iiggayr-Min (Icaps) 3,431-6-543-75 zouf-gy-oh-unit Tablet Extended Release Active 1 TAB PO Daily November 03, 2020 1:00am Completed/Discontinued Medications MedicationDrug Class(es)DatesSig (Normalized)Sig (Original)clopidogrel 75 mg oral tablet (19 sources)P2Y12 Platelet InhibitorStart: 07-30-2024 End: 29-77-7266tdwq 1 tablet by mouth once dailyClopidogrel 75 mg tablet Discontinued 75 MG PO Daily July 30, 2024 12:00am July 30, 2024 1 0:38amStart: 11-03-2020 End: 84-65-7816kfty 1 tablet by mouth once dailyClopidogrel 75 mg Tablet Discontinued 75 MG PO Daily 180 180 1 November 03, 2020 12:00am September 21, 2023 1:10pm PADomeprazole 40 mg delayed release oral capsule (7 sources)Proton Pump InhibitorStart: 08-21-2024 End: 09-62-3048pjmg 1 capsule by mouth once daily at breakfastOmeprazole 40 mg capsule,delayed release(DR/EC) Discontinued 0 .ROUTE .COMPLEX 90 1 August 21, 2024 5:30pm October 30, 2024 10:01am TAKE 1 CAPSULE BY MOUTH ONCE A DAY ON AN EMPTY STOMACH 30 MINUTES PRIOR TO BREAKFASTStart: 07-30-2024 End: 69-76-7737Macxlrecra 40 mg capsule,delayed release(DR/EC) Discontinued 40 MG PO Daily July 30, 2024 12:00am August 21, 2024 5:30pm Take on empty stomach, 30 minutes prior to bkfst Problems Active Problems Problem ClassificationProblemDateDocumented DateEpisodic/ChronicAllergic reactions (1 source)Contact dermatitis due to plants; Translations: [Contact dermatitis and other eczema due to plants (except food)]EpisodicDisorders of lipid metabolism (18 sources)Hyperlipidemia; Translations: [Mixed hyperlipidemia]Onset: 333143-39-2589SgdihkiHtwvpvabvd disorders (2 sources)Gastroesophageal reflux disease; Translations: [Gastro-esophageal reflux disease without esophagitis]40-43-2608PeqwrszCfvrhuwqk hypertension (2 sources)Benign essential hypertension; Translations: [Essential hypertension, benign]Onset: 71-53-3056LshuqsnPhstmfacrlc of prostate (9 sources)Benign prostatic hyperplasia without lower urinary tract symptoms; Translations: [Benign prostatic hypertrophy without outflow obstruction]Onset: 27-69-8243OuibxloIacfmyfcabkdwa (2 sources)Zoihyvlmo89-37-5345QfjbonzNkejf acquired deformities (1 source)Contracture of left elbow joint; Translations: [Contracture, left elbow]ChronicOther acquired deformities (1 source)Contracture of right elbow joint; Translations: [Contracture, right elbow]ChronicOther aftercare (1 source)Other extermination supervisor (current) drug therapyEpisodicOther circulatory disease (4 sources)Other specified symptoms and signs involving the circulatory and respiratory systems; Translations:[OTH SPEC SX SIGNS INVLV CIRC RS]Onset: 00-61-5025SqpbpfkbFugxy circulatory disease (1 source)Cardiovascular symptoms; Translations: [Other [...] muscle]EpisodicOther hereditary and degenerative nervous system conditions (5 sources)Essential tremor; Translations: [Essential tremor]80-79-8496Gnmyvmp Other hereditary and degenerative nervous system conditions (1 source)Essential tremor; Translations: [Essential and other specified forms of tremor]72-89-8329TrssriyHavbv nervous system disorders (1 source)Carpal tunnel syndrome; Translations: [Carpal tunnel syndrome, bilateral upper limbs]ChronicOther nervous system disorders (1 source)Paresthesia; Translations: [Paresthesia of skin]EpisodicOther non- traumatic joint disorders (1 source)Arthralgia of the upper arm; Translations: [Pain in right elbow] EpisodicOther nutritional; endocrine; and metabolic disorders (1 source)Obese class I; Translations: [Body mass index 33.0-33.9, adult]Onset: 03-79-8131TqbouuvBibfe nutritional; endocrine; and metabolic disorders (2 sources)Body mass index 30+ - obesity; Translations: [Body mass index 30.0- 30.9, adult]Onset: 04-79-3905RklwswgJcpgl nutritional; endocrine; and metabolic disorders (2 sources)Obesity; Translations: [Obesity, unspecified]Onset: 55-90-7136Ljifrpn Other nutritional; endocrine; and metabolic disorders (1 source)Simple obesity ; Translations: [Other obesity due to excess calories] ChronicOther screening for suspected conditions (not mental disorders or infectious disease) (13 sources)Elevated prostate specific antigen [PSA]; Translations: [Raised prostate specific antigen]Onset: 62-50-3785RpytsxhkDskppfy on above:PSA: 1.64 - 2021, 1.83 - 2022, 1.55 - 06/2024TRUS/bx - remoteTRUS/bx - remote,PSA: 1.64 - 2021, 1.83 - 2022, 1.55 - 06/2024, 1.81 - 07/2025Peripheral and visceral atherosclerosis (20 sources)Intermittent claudication; Translations: [Peripheral vascular disease, unspecified]Onset: 12-02-2021 Resolved: 27-63-2968ZlkmglvDufqyhu on above:s/p angioplasty left 2020 Screening and history of mental health and substance abuse codes (4 sources)H/O: Disorder; Translations: [Personal history of nicotine dependence]Onset: 29-56-5190GndqoyswJwzxmrcdm-related disorders (13 sources)Tobacco user; Translations: [Nicotine dependence, cigarettes, in remission]ChronicComment on above:LDCT: no suspicious nodules - 07/2024, Age started 21, ppd 1, age/year quit 53y/o, 2013.Unclassified (2 sources)Drug therapy nvvdxxe86-44-7563Vdujqhuvvxpn (1 source)Encounter for screening for malignant neoplasm of colon; Translations: [Encounter for screening formalignant neoplasm of colon]Onset: 09-22-2023 Past or Other Problems Problem ClassificationProblemDateDocumented DateEpisodic/ChronicBacterial infection; unspecified site (1 source)Streptococcus pyogenes infection; Translations: [Streptococcus infection in conditions classified elsewhere and of unspecified site, group A] Onset: 66-27-0709XkgdecghUmoelnoh; including migraine (1 source)Headache; Translations: [Headache]Onset: 91-06-8156Dfjpnfrz Intracranial injury (1 source)Concussion with no loss of consciousness; Translations: [Concussion with no loss of consciousness]Onset: 15-56-3451XklqxrkhGkyzs disorders and dislocations; trauma-related (2 sources)Dislocations, sprains and strains involving multiple regions of lower limb(s); Translations: [Sprain and strain of unspecified site of knee and leg] Onset: 92-60-9260RpeoukdeWdlwyuv and fatigue (1 source)Malaise and fatigue; Translations: [Other malaise and fatigue]Onset: 30-53-9445JujxmwodGarwgbejbth chest pain (1 source)Chest pain; Translations: [Chest pain, unspecified]Onset: 04-20-2016 EpisodicOther diseases of veins and lymphatics (1 source)Peripheral venous insufficiency; Translations: [Unspecified venous (peripheral) insufficiency]Onset: 13-81-6488CzadobafCfoxy ear and sense organ disorders (1 source)Tinnitus; Translations: [Unspecified tinnitus]Onset: 06-17-2017 EpisodicOther liver diseases (1 source)Elevated levels of transaminase & lactic acid dehydrogenase; Translations: [Nonspecific elevation of levels of transaminase or lactic acid dehydrogenase (LDH)]Onset: 52-88-2625InkrmgogDeavr lower respiratory disease (1 source)Dyspnea; Translations: [Other dyspnea and respiratory abnormalities] Onset: 20-69-5771UdppqexfXzdhd non-traumatic joint disorders (1 source)Arthralgia of the lower leg; Translations: [Pain in joint, lower leg] Onset: 91-57-2168SmhyidqbIjnpd nutritional; endocrine; and metabolic disorders (1 source)Abnormal weight gain; Translations: [Abnormal weight gain]Onset: 95-44-5454JuzqgditSclkz skin disorders (1 source)Generalized hyperhidrosis; Translations: [Generalized hyperhidrosis] Onset: 08-22-7146IdlglasfCnrmd upper respiratory infections (1 source)Acute maxillary sinusitis; Translations: [Acute maxillary sinusitis] Onset: 65-94-4425SryfknwaZirbis media and related conditions (1 source)Eustachian tube salpingitis; Translations: [Unspecified Eustachian salpingitis]Onset: 58-79-7829WitasjvmGqkmyior codes; unclassified (1 source)Edema; Translations: [Edema]Onset: 98-50-1532TmiaaagwXatesorndns; intervertebral disc disorders; other back problems (1 source)Brachial radiculitis; Translations: [Brachial neuritis or radiculitis NOS]Onset: 64-63-5027MzwfxcphCamvvln and strains (1 source)Neck sprain; Translations: [Neck sprain and strain]Onset: 06-16-2017 EpisodicUnclassified (1 source)Long-term current use of drug therapy; Translations: [Long-term (current) use of other medications]Onset: 06-19-2018 Results Test NameValueInterpretationReference RangeFacilityBasophils Auto (Bld) [#/Vol] Ordered By: Satish Woods on 88-93-3046Dyzkmaskg (Bld) [#/Vol]0.1 10 3/uL0.0-0.1 [facility] HospitalBasophils/100 WBC Auto (Bld)Ordered By: Satish Woods on 87-30-5854Kcckhmpjx/100 WBC (Bld)0.9 %0.2-2.0[facility] HospitalCholesterol in LDL Calc [Mass/Vol]Ordered By: Satish Woods on 71-66-1401Otobdkefqiw in LDL [Mass/Vol]86.0 mg/dLWooster Community HospitalComment on above:<100 mg/dl WQGGMNS452-372 mg/dl NEAR OR ABOVE KYTYLKK498- 159 mg/dl BORDERLINE JAQH985-489 mg/dl HIGH>190 mg/dl VERY HIGHCholesterol in VLDL Calc [Mass/Vol]Ordered By: Satish Woods on 70-72-5583Wdpvgsqblwf in VLDL [Mass/Vol]31.2 mg/dLWooster Community HospitalEosinophils/100 WBC Auto (Bld)Ordered By: Satish Woods on 77-68-0772Ddynwzffeey/100 WBC (Bld)1.4 % 0.9-7.0[facility] HospitalErythrocyte distribution width Auto (RBC) [Ratio]Ordered By: Satish Woods on 28-84-7952Uynpbabwrqt distribution width (RBC) [Ratio]13.0 %11.0-15.0[facility] HospitalGlobulin Calc (S) [Mass/Vol]Ordered By: Satish Woods on 03-12-1427Grvtilsq (S) [Mass/Vol]3.6 g/dLWooster Community HospitalGlomerular filtration rate (GFR) estimation in non- AmericanOrdered By: Satish Woods on 07-29-2025 GFR/1.73 sq M.predicted among non-blacks MDRD (S/P/Bld) [Vol rate/Area] mL/min/{1.73_m2}>=60 mL/min/1.73m 2FKindred Hospital DaytonHematocrit Auto (Bld) [Volume fraction]Ordered By: Satish Woods on 48-60-3561Steaaawuio (Bld) [Volume fraction]48.0 %42.0-54.0[facility] Hemoglobin [Mass/volume] in BloodOrdered By: Satish Woods on 07-29-2025 Hemoglobin (Bld) [Mass/Vol]16.3 g/dL14.0-18.0[facility] - Chemistry and Chemistry - challengeOrdered By: Satish Woods on 87-63-5758Nkfnzhh [Mass/Vol]3.7 g/dL3.4-5.0[facility] HospitalALP [Catalytic activity/Vol]95 U/X21-261HtlgkdrmcWooster Community HospitalALT [Catalytic activity/Vol]50 U/I01-10OdmhwhyjlW[facility]oster Community HospitalAST [Catalytic activity/Vol]18 U/K51-94XnbvuwxxcWooster Community HospitalBilirubin [Mass/Vol]1.4 mg/dLHigh0.2-1.0[facility] HospitalCalcium [Mass/Vol]9.1 mg/dL8.5-10.1FKindred Hospital DaytonChloride [Moles/Vol] 103 mmol/I11-348MviagnizcWooster Community HospitalCholesterol [Mass/Vol]167 mg/dL <=200[facility] HospitalCholesterol in HDL [Mass/Vol]50 mg/dL40-60 [facility] HospitalComment on above:> or =60 mg/dl - LOW CARDIOVASCULAR RISK<40 mg/dl - HIGH CARDIOVASCULAR RISKCO2 [Moles/Vol]25.6 mmol/L21.0-32.0[facility] HospitalCreatinine [Mass/Vol]0.79 mg/dL 0.70-1.30[facility] HospitalGFR/1.73 sq M.predicted MDRD (S/P/Bld) [Vol rate/Area]mL/min/{1.73_m2}>=60 mL/min/1.73m 2FKindred Hospital DaytonGlucose [Mass/Vol]102 mg/xY05-767XtgkrutlvW[facility] Hospital Potassium [Moles/Vol]4.0 mmol/L3.5-5.1FKindred Hospital DaytonProtein [Mass/Vol]7.3 g/dL6.4-8.2FSamaritan Hospitalodium [Moles/Vol]139 mmol/Q077-327VjzkinjwfWooster Community HospitalTriglyceride [Mass/Vol]156 mg/dL High<=150[facility] HospitalUrea nitrogen [Mass/Vol]18.0 mg/dL 7.0-18.0[facility] HospitalUrea nitrogen/Creatinine [Mass ratio] 22.8 mg/mgWooster Community HospitalLaboratory - Hematology and Cell countsOrdered By: Satish Woods on 92-81-7786Dduphqio granulocytes/100 WBC (Bld) 0.4 %0.0-0.5FKindred Hospital DaytonLeukocytes [#/volume] corrected for nucleated erythrocytes in Blood by Automated counOrdered By: Satish Woods on 00-23-2725RQC corrected for nucl RBC Auto (Bld) [#/Vol]5.7 10 3/uL4.0-11.0 [facility] HospitalLymphocytes Auto (Bld) [#/Vol]Ordered By: Satish Woods on 80-31-0873Xppfluiaenh (Bld) [#/Vol]2.2 10 3/uL1.2-3.8[facility] HospitalLymphocytes/100 WBC Auto (Bld)Ordered By: Satish Woods on 16-32-9635Wjgbahxgqcs/100 WBC (Bld)39.3 %20.5-60.0[facility] Auto (RBC) [Entitic mass]Ordered By: Satish Woods on 80-26-2662DWQ (RBC) [Entitic mass]32.5 pg25.9-34.0[facility] CenterHC Auto (RBC) [Mass/Vol]Ordered By: Satish Woods on 97-27-9187JIPA (RBC) [Mass/Vol]34.0 g/dL29.9-35.2FKindred Hospital DaytonMCV Auto (RBC) [Entitic vol] Ordered By: Satish Woods on 15-93-4373MLV (RBC) [Entitic vol]95.6 fLHigh 80.0-94.0[facility] HospitalMonocytes Auto (Bld) [#/Vol]Ordered By: Satish Woods on 53-17-3455Lluhrhjaw (Bld) [#/Vol]0.6 10 3/uL0.3-0.8 [facility] HospitalMonocytes/100 WBC Auto (Bld)Ordered By: Satish Woods on 77-06-3324Aeyugzfro/100 WBC (Bld)9.7 %1.7-12.0[facility] HospitalNeutrophils Auto (Bld) [#/Vol]Ordered By: Satish Woods on 52-80-6524Bntxmxytjkj (Bld) [#/Vol]2.7 10 3/uL1.4-6.5FKindred Hospital DaytonNeutrophils/100 WBC Auto (Bld)Ordered By: Satish Woods on 42-03-1175Marteuukwju/100 WBC (Bld)48.3 %43.0-75.0[facility] HospitalNo Panel InformationOrdered By: Satish Woods on 28-52-8637Sjchsrxvydf # (Auto)0.1 10 3/uL0.0-0.7FKindred Hospital DaytonImmature Granulocyte # (Auto)0.02 10 3/uL0.00-0.03[facility] HospitalProstate Specific Antigen Screen1.81 ng/mL<=4.00[facility] HospitalPlatelet mean volume Auto (Bld) [Entitic vol]Ordered By: Satish Woods on 06-72-9741Jdhnyrkc mean volume (Bld) [Entitic vol]10.6 fL9.5-13.5FKindred Hospital Dayton Platelets Auto (Bld) [#/Vol]Ordered By: Satish Woods on 03-63-6162Vejliyujh (Bld) [#/Vol]214 10 3/gH535-386ZigdigglqWooster Community HospitalRBC Auto (Bld) [#/Vol]Ordered By: Satish Woods on 76-61-5024SVL (Bld) [#/Vol]5.02 10 6/uL 4.70-6.10[facility] Hospitalerum or plasma albumin/globulin mass ratioOrdered By: Satish Woods on 13-89-3829Zydutkw/Globulin [Mass ratio]1.0 {ratio}[facility] Hospitalerum or plasma anion gap determination Ordered By: Satish Woods on 75-72-2510Clzib gap [Moles/Vol]14.4 mmol/LFSamaritan Hospitalerum or plasma total cholesterol/high density lipoprotein (HDL) cholesterol mass ratOrdered By: Satish Woods on 07-29-2025 Cholesterol.total/Cholesterol in HDL [Mass ratio]3.3 {ratio}[facility] HospitalComment on above:3.3 - 4.4 LOW RISK4.4 - 7.1 AVERAGE RISK7.1 - 11.0 MODERATE RISK>11.0 HIGH RISKBasophils Auto (Bld) [#/Vol]on 07-24-2024 Basophils (Bld) [#/Vol]0.0 10 3/uL0.0-0.1FKindred Hospital Dayton Basophils/100 WBC Auto (Bld)on 95-74-0558Icodhbrbi/100 WBC (Bld)0.4 %0.2-2.0 [facility] HospitalCholesterol in LDL Calc [Mass/Vol]on 07-24-2024 Cholesterol in LDL [Mass/Vol]62.2 mg/dLWooster Community HospitalComment on above:<100 mg/dl PLZIXZB352-799 mg/dl NEAR OR ABOVE QVFQYGU106-905 mg/dl BORDERLINE LWOX546-030 mg/dl HIGH>190 mg/dl VERY HIGHCholesterol in VLDL Calc [Mass/Vol]on 38-16-8950Zbcttfrljwc in VLDL [Mass/Vol]23.8 mg/dLWooster Community HospitalEosinophils/100 WBC Auto (Bld)on 07-24-2024 Eosinophils/100 WBC (Bld)1.5 %0.9-7.0[facility] Erythrocyte distribution width Auto (RBC) [Ratio]on 04-66-3410Wpldvrccnyo distribution width (RBC) [Ratio]12.6 %11.0-15.0[facility] Estimated glomerular filtration rate (GFR) non- Americanon 07-24-2024 GFR/1.73 sq M.predicted among non-blacks MDRD (S/P/Bld) [Vol rate/Area] mL/min/{1.73_m2}>=60 mL/min/1.73m 2FKindred Hospital DaytonGlobulin Calc (S) [Mass/Vol]on 24-23-6948Fkrudcuv (S) [Mass/Vol]3.7 g/dLWooster Community HospitalHematocrit Auto (Bld) [Volume fraction]on 07-24-2024 Hematocrit (Bld) [Volume fraction]45.2 %42.0-54.0[facility] HospitalHemoglobin [Mass/volume] in Bloodon 03-14-9426Qklnumbcqr (Bld) [Mass/Vol] 15.7 g/dL14.0-18.0[facility] HospitalLaboratory - Chemistry and Chemistry - challengeon 36-17-7214Tiprejy [Mass/Vol]3.5 g/dL3.4-5.0[facility] CenterALP [Catalytic activity/Vol]93 U/A83-595XptqdvbvsW[facility] Community HospitalALT [Catalytic activity/Vol]46 U/N21-40GqzwfhnvcWooster Community HospitalAST [Catalytic activity/Vol]19 U/V61-21EqxvzfkqxWooster Community HospitalBilirubin [Mass/Vol]1.2 mg/dLHigh0.2-1.0[facility] Calcium [Mass/Vol]9.0 mg/dL8.5-10.1FKindred Hospital DaytonChloride [Moles/Vol]104 mmol/B96-836NidgjagayWooster Community HospitalCholesterol [Mass/Vol]137 mg/dL<=200[facility] HospitalCholesterol in HDL [Mass/Vol]51 mg/tA48-66RhqjaqplnWooster Community HospitalComment on above:> or =60 mg/dl - LOW CARDIOVASCULAR RISK<40 mg/dl - HIGH CARDIOVASCULAR RISKCO2 [Moles/Vol]26.1 mmol/L21.0-32.0[facility] HospitalCreatinine [Mass/Vol]0.88 mg/dL0.70-1.30[facility] HospitalGFR/1.73 sq M.predicted MDRD (S/P/Bld) [Vol rate/Area]mL/min/{1.73_m2}>=60 mL/min/1.73m 2 [facility] HospitalGlucose [Mass/Vol]105 mg/lL08-554VidluxovyWooster Community HospitalPotassium [Moles/Vol]4.3 mmol/L3.5-5.1FKindred Hospital DaytonProtein [Mass/Vol]7.2 g/dL6.4-8.2FKindred Hospital Dayton Sodium [Moles/Vol]140 mmol/L885-988KuyvgpdzkWooster Community HospitalTriglyceride [Mass/Vol]119 mg/dL<=150[facility] HospitalUrea nitrogen [Mass/Vol]15.0 mg/dL7.0-18.0[facility] HospitalUrea nitrogen/Creatinine [Mass ratio]17.0 mg/mgWooster Community Hospital Laboratory - Hematology and Cell countson 18-78-2625Qyttgvjf granulocytes/100 WBC (Bld)0.3 %0.0-0.5FKindred Hospital DaytonLeukocytes [#/volume] corrected for nucleated erythrocytes in Blood by Automated counon 64-74-4036CAQ corrected for nucl RBC Auto (Bld) [#/Vol]7.5 10 3/uL4.0-11.0[facility] HospitalLymphocytes Auto (Bld) [#/Vol]on 82-23-1536Hvxsmiaiqmy (Bld) [#/Vol]2.3 10 3/uL1.2-3.8[facility] HospitalLymphocytes/100 WBC Auto (Bld)on 84-86-8417Hbuukhyanco/100 WBC (Bld)30.3 %20.5-60.0[facility] CenterH Auto (RBC) [Entitic mass]on 33-99-6163UHA (RBC) [Entitic mass]32.8 pg25.9-34.0[facility] HospitalMCHC Auto (RBC) [Mass/Vol]on 20-53-0690HRJV (RBC) [Mass/Vol]34.7 g/dL29.9-35.2FKindred Hospital DaytonMCV Auto (RBC) [Entitic vol]on 83-83-3903TUY (RBC) [Entitic vol] 94.4 zLQpqw57.0-94.0[facility] HospitalMonocytes Auto (Bld) [#/Vol]on 79-53-9703Pbkzbnhhm (Bld) [#/Vol]0.7 10 3/uL0.3-0.8[facility] HospitalMonocytes/100 WBC Auto (Bld)on 93-26-3160Ivdbzmjej/100 WBC (Bld) 9.3 %1.7-12.0[facility] HospitalNeutrophils Auto (Bld) [#/Vol]on 97-13-9569Jlgatzlqnlw (Bld) [#/Vol]4.4 10 3/uL1.4-6.5FKindred Hospital DaytonNeutrophils/100 WBC Auto (Bld)on 39-12-7896Vzfykisdtsv/100 WBC (Bld)58.2 % 43.0-75.0[facility] HospitalNo Panel Informationon 07-24-2024 Eosinophils # (Auto)0.1 10 3/uL0.0-0.7FKindred Hospital DaytonImmature Granulocyte # (Auto)0.02 10 3/uL0.00-0.03[facility] [facility] Nucleated Red Blood Cells/100 UDW2DfdmyxyfjWooster Community HospitalPlatelet mean volume Auto (Bld) [Entitic vol]on 55-25-1765Lctfxayf mean volume (Bld) [Entitic vol]10.2 fL9.5-13.5FKindred Hospital DaytonPlatelets Auto (Bld) [#/Vol]on 19-48-5858Sqauuddjs (Bld) [#/Vol]213 10 3/yK334-027JgvrjftqbWooster Community HospitalRBC Auto (Bld) [#/Vol]on 77-00-0653OZK (Bld) [#/Vol]4.79 10 6/uL 4.70-6.10[facility] Hospitalerum or plasma albumin/globulin mass ratioon 33-54-3822Jrnpwjp/Globulin [Mass ratio]0.9 {ratio}[facility] Hill[facility]st Hospitalerum or plasma anion gap determinationon 98-48-1440Sqphp gap [Moles/Vol]14.2 mmol/LFSamaritan Hospitalerum or plasma total cholesterol/high density lipoprotein (HDL) cholesterol mass ama 07-24-2024 Cholesterol.total/Cholesterol in HDL [Mass ratio]2.7 {ratio}[facility] HospitalComment on above:3.3 - 4.4 LOW RISK4.4 - 7.1 AVERAGE RISK7.1 - 11.0 MODERATE RISK>11.0 HIGH RISKUrology Office/Clinic Noteon 88-73-1821Rqtrkrg Office/Clinic NoteUrology Office/Clinic Note Chief Complaint BPH [...] URL [facility] [address], [place] [phone] Additional Instructions: PRN Patient Education Prostate Cancer [...] Protein Urine Dipstick: Negative (03/25/24 09:00:00) Specific [place] Urine Dipstick: 1.020 (03/25/24 09:00:00) Urine Appearance Urine Dipstick: Clear (03/25/24 09:00:00) Urine Color Urine Dipstick: Yellow (03/25/24 09:00:00) Urobilinogen Urine Dipstick: Normal 0.2-1 EU/dl (03/25/24 09:00:00) pH Urine Dipstick: 6 (03/25/24 09:00:00)NormalFisher Medstar Harbor HospitalComment on above:Result Comment: Electronically Signed By: Jonathan HARDING MD\.br\Date and Time Signed: 03/25/24 09:33 EDT\.br\Electronically Co-Signed By: Robyn Mcfadden\.br\Date and Time Co-Signed: 03/25/24 09:31 EDTLab Reportson 07-11-0379Ast [id number]#1.00TIFFNormal Cook Medstar Harbor HospitalUS CAROTID ART BILon 35-79-8563IT CAROTID ART BRI EXAMINATION: US CAROTID ART [...] Electronically authenticated by: DARIO WORTHINGTON Date: 2022-08-01 17:[address] [place] [address] AUTO DIFFon 24-44-4333YAJF #0.0 103/ulNormal0.0-0.1The [facility] HospitalComment on above:Performed By: #### CBC #### [facility] [address] [place] [address] Dr. Krystle CaballeroBasophils/100 WBC (Bld)0.5 %Normal0.2-2.0The [facility] Comment on above:Performed By: #### CBC #### [facility] [address] [place] [address] Dr. Krystle Callaway #0.2 103/ulNormal0.0-0.7The [facility] HospitalComment on above: Performed By: #### CBC #### [facility] [address] [place] [address] Dr. Krystle Mittalosinophils/100 WBC (Bld)3.0 %Normal0.9-7.0The [facility] Comment on above:Performed By: #### CBC #### [facility] [address] [place] [address] Dr. Krystle Mittalrythrocyte distribution width (RBC) [Ratio]12.8 %Ojftma01.0-15.0 The [facility] HospitalComment on above:Performed By: #### CBC #### [facility] [address] [place] [address] Dr. Krystle CaballeroHematocrit (Bld) [Volume fraction]47.7 %Hhfijg11.0-54.0The [facility] HospitalComment on above:Performed By: #### CBC #### [facility] [address] [place] [address] Dr. Krystle CaballeroHemoglobin (Bld) [Mass/Vol]16.2 g/vFNdcibg36.0-18.0The [facility] HospitalComment on above:Performed By: #### CBC #### [facility] [address] [place] [address] Dr. Krystle Castro #0.01 10e3/ulNormal0.00-0.03The [facility] HospitalComment on above:Performed By: #### CBC #### [facility] [address] [place] [address] Dr. Krystle Castro %0.2 %Normal0.0-0.5The [facility] HospitalComment on above: Performed By: #### CBC #### [facility] [address] [place] [address] Dr. Krystle Waite #2.3 103/ulNormal1.2-3.8The [facility] HospitalComment on above:Performed By: #### CBC #### [facility] [address] [place] [address] Dr. Krystle Barneyhocytes/100 WBC (Bld)38.1 %Palflj32.5-60.0The [facility] HospitalComment on above:Performed By: #### CBC #### [facility] [address] [place] [address] Dr. Krystle Gaspar DIFF REQNONormalThe [facility] HospitalComment on above: Performed By: #### CBC #### [facility] [address] [place] [address] Dr. Krystle Taylor (RBC) [Entitic mass]32.4 osLvqgso76.9-34.0The [facility] HospitalComment on above:Performed By: #### CBC #### [facility] [address] [place] [address] Dr. Krystle Pace (RBC) [Mass/Vol]34.0 g/kALxbqoy08.9-35.2The [facility] HospitalComment on above:Performed By: #### CBC #### [facility] [address] [place] [address] Dr. Krystle Pace (RBC) [Entitic vol]95.4 fLCritically high80.0-94.0The [facility] HospitalComment on above:Performed By: #### CBC #### [facility] [address] [place] [address] Dr. Krystle Lundberg #0.6 103/ulNormal0.3-0.8The [facility] HospitalComment on above:Performed By: #### CBC #### [facility] [address] [place] [address] Dr. Krystle Villalpandoocytes/100 WBC (Bld)9.6 %Normal1.7-12.0The [facility] Comment on above:Performed By: #### CBC #### [facility] [address] [place] [address] Dr. Krystle Barney #2.9 103/ulNormal1.4-6.5The [facility] HospitalComment on above:Performed By: #### CBC #### [facility] [address] [place] [address] Dr. Krystle Kulkarniutrophils/100 WBC (Bld)48.6 %Ktsvek64.0-75.0The [facility] HospitalComment on above:Performed By: #### CBC #### [facility] [address] [place] [address] Dr. Krystle CaballeroPlatelet mean volume (Bld) [Entitic vol]10.0 fLNormal9.5-13.5The [facility] HospitalComgarden city hospital on above:Performed By: #### CBC #### [facility] [address] [place] [address] Dr. Krystle HartT219 103/gzDvmodf408-850Ufc [facility] HospitalComgarden city hospital on above: Performed By: #### CBC #### [facility] [address] [place] [address] Dr. Krystle CaballeroRBC5.00 106/ulNormal4.70-6.10The [facility] HospitalComgarden city hospital on above:Performed By: #### CBC #### [facility] [address] [place] [address] Dr. Krystle CaballeroWBC6.0 103/ulNormal4.0-11.0The [facility] HospitalComgarden city hospital on above: Performed By: #### CBC #### [facility] [address] [place] [address] Dr. Krystle CaballeroLIPID PROFILEon 90-99-9959RTFA-HDL RATIO NORMSEE Veterans [facility] AdministrationComgarden city hospital on above:Result Comment: 3.3 - 4.4 LOW RISK 4.4 - 7.1 AVERAGE RISK 7.1 - 11.0 MODERATE RISK >11.0 HIGH RISKPerformed By: #### LIPID, CMP #### [facility] [address] [place] [address] Dr. Krystle CaballeroCholesterol [Mass/Vol]157 mg/dLNormal<=200[facility] Comment on above:Performed By: #### LIPID, CMP #### [facility] [address] [address] [address] Krystle CaballeroCholesterol in HDL [Mass/Vol]49 mg/iLWuksui83-28LeeCleveland ClinicComment on above:Performed By: #### LIPID, CMP #### [facility] [address] [address] [address] Krystle Espinalesterol in LDL [Mass/Vol]81.8 mg/dLProMedica Flower HospitalComment on above:Performed By: #### LIPID, CMP #### [facility] [address] [place] [address] Dr. Krystle Bowser.total/Cholesterol in HDL [Mass ratio]3.2 {ratio} NormalCleveland ClinicComment on above:Performed By: #### LIPID, CMP #### [facility] [address] [place] [address] Dr. Krystle Peralta NORMAL> or = 60 mg/dl - LOW CARDIOVASCULAR RISK <40 mg/dl - HIGH CARDIOVASCULAR RISKProMedica Flower HospitalComment on above:Performed By: #### LIPID, CMP #### [facility] [address] [address] [address] Krystle Bloom CALC NORMALSEE BELOWProMedica Flower HospitalComment on above:Result Comment: <100 mg/dl OPTIMAL 100 - 129 mg/dl NEAR OR ABOVE OPTIMAL 130 - 159 mg/dl BORDERLINE HIGH 160 - 189 mg/dl HIGH >190 mg/dl VERY HIGH Performed By: #### LIPID, CMP #### [facility] [address] [place] [address] Dr. Krystle CaballeroTriglyceride [Mass/Vol]131 mg/dLNormal<=150[facility] Comment on above:Performed By: #### LIPID, CMP #### [facility] [address] [place] [address] Dr. Krystle MastLDL CALC26.2 mg/dLNoLake County Memorial Hospital - WestComment on above: Performed By: #### LIPID, CMP #### [facility] [address] [address] [address] Krystle Hurst 14(COMP METB)on 25-75-7341Lrslhgl [Mass/Vol]3.9 g/dLNormal 3.4-5.0The [facility] HospitalComment on above:Performed By: #### LIPID, CMP #### [facility] [address] [address] [address] Krystle CaballeroAlbumin/Globulin [Mass ratio]1.1 {ratio}NormalThe [facility] HospitalComment on above:Performed By: #### LIPID, CMP #### [facility] [address] [address] [address] Krystle Ribeiro [Catalytic activity/Vol]91 U/ZJhszec94-079Ptw [facility] HospitalComment on above:Performed By: #### LIPID, CMP #### [facility] [address] [address] [address] Krystle De Anda [Catalytic activity/Vol]44 U/QKkjigt08-00Hgm [facility] HospitalComment on above:Performed By: #### LIPID, CMP #### [facility] [address] [address] [address] Krystle Wetzel gap [Moles/Vol]10.0 mmol/LNormalThe [facility] Comment on above:Performed By: #### LIPID, CMP #### [facility] [address] [address] [address] Krystle CaballeroAST [Catalytic activity/Vol]14 U/LCritically dsa73-49Ajc [facility] HospitalComment on above:Performed By: #### LIPID, CMP #### [facility] [address] [address] [address] Krystle CaballeroBilirubin [Mass/Vol]0.9 mg/dLNormal0.2-1.0The [facility] Comment on above:Performed By: #### LIPID, CMP #### [facility] [address] [address] [address] Krystle CaballeroCalcium [Mass/Vol]9.4 mg/dLNormal8.5-10.1The [facility] Comment on above:Performed By: #### LIPID, CMP #### [facility] [address] [address] [address] Krystle CaballeroChloride [Moles/Vol]102 mmol/MGliykm54-875Qsk [facility] Comment on above:Performed By: #### LIPID, CMP #### [facility] [address] [address] [address] Krystle CaballeroCO2 [Moles/Vol]31.4 mmol/KWnujjz40.0-32.0The [facility] Comment on above:Performed By: #### LIPID, CMP #### [facility] [address] [address] [address] Krystle CaballeroCreatinine [Mass/Vol]0.90 mg/dLNormal0.70-1.30The [facility] HospitalComment on above:Performed By: #### LIPID, CMP #### [facility] [address] [place] [address] Dr. Krystle MittalGFR-AF GRENADIAN>60Normal>=60The [facility] HospitalComment on above:Performed By: #### LIPID, CMP #### [facility] [address] [place] [address] Dr. Krystle Leung-NON AF GRENADIAN>60Normal>=60The [facility] HospitalComment on above:Performed By: #### LIPID, CMP #### [facility] [address] [address] [address] Krystle CaballeroGlobulin (S) [Mass/Vol]3.7 g/dLNormalThe [facility] HospitalComment on above:Performed By: #### LIPID, CMP #### [facility] [address] [place] [address] Dr. Krystle CaballeroGlucose [Mass/Vol]104 mg/aXIzstgw44-940Sgv [facility] Comment on above:Performed By: #### LIPID, CMP #### [facility] [address] [place] [address] Dr. Krystle CaballeroPotassium [Moles/Vol]4.4 mmol/LNormal3.5-5.1The [facility] Comment on above:Performed By: #### LIPID, CMP #### [facility] [address] [address] [address] Krystle CaballeroProtein [Mass/Vol]7.6 g/dLNormal6.4-8.2[facility] Comment on above:Performed By: #### LIPID, CMP #### [facility] [address] [address] [address] Kyrstle CaballeroSodium [Moles/Vol]139 mmol/JKcqdxh077-832GuvCleveland Clinic Comment on above:Performed By: #### LIPID, CMP #### [facility] [address] [address] [address] Krystle CaballeroUrea nitrogen [Mass/Vol]19.0 mg/dLCritically high7.0-18.0C[facility] ClinicComment on above:Performed By: #### LIPID, CMP #### [facility] [address] [address] [address] Krystle Hurt nitrogen/Creatinine [Mass ratio]21.1 mg/mgNormalThe [facility] HospitalComment on above:Performed By: #### LIPID, CMP #### [facility] [address] [place] [address] Dr. Krystle Caballero Vital Signs Date TimeVital SignValuePerforming BhryfqetfIwpdfrtx98-29-9748 10:18-0500Body ulustp639.34 cmBenjamin Ball DO Work Phone: [facility]11-11-2025 10:18-0500 Body mass index (BMI) [Ratio]34.6 kg/t5Kohoqoym Ball DO Work Phone: [phone]11-11-2025 10:18-0500 Body wgmcki626.54 kgBenjamin Ball DO Work Phone: [phone]11-11-2025 10:18-0500 Diastolic blood rpihcibu27 mm[Hg]Satish Ball DO Work Phone: [facility]11-11-2025 10:18-0500 Heart rate72 /minBenjamin Ball DO Work Phone: [facility]11-11-2025 10:18-0500 Respiratory rate16 /minBenjamin Ball DO Work Phone: [facility]11-11-2025 10:18-0500 Systolic blood snlsulei317 mm[Hg]Satish Ball DO Work Phone: [facility]02-05-2025 10:03-0500 Body .34 cmWooster Community Hospital02-05-2025 10:03-0500Body mass index (BMI) [Ratio]33.5 kg/b4KpogbylkoWooster Community Hospital02-05-2025 10:03-0500Body ivlwfq119.03 kgWooster Community Hospital02-05-2025 10:03-0500Diastolic blood xqdguhca19 mm[Hg][facility] 10-30-2024 10:03-0500Heart rate70 /[facility] 10-30-2024 10:03-0500Respiratory rate12 /[facility] 10-30-2024 10:03-0500Systolic blood xuvpvqxg292 mm[Hg][facility]11-11-2024 09:34-0500Body leimso490.3 cmChristopher Shannan DO Work Phone: [facility] HospitalAlefljrmcs96-74-1526 09:34-0500Body mass index (BMI) [Ratio]32.08 kg/f9Ppborgibvxc Shannan DO Work Phone: [facility] HospitalWngxowrnmb51-85-1455 09:34-0500Body unuxlb155.33 kgChristopher Shannan DO Work Phone: [facility] HospitalZwlraohgyb69-08-0671 09:34-0500Diastolic blood xgaclagr13 mm[Hg]Christopher Shannan DO Work Phone: [facility] HospitalSbinusjywd93-30-4429 09:34-0500Systolic blood cunlnfil309 mm[Hg]Christopher Shannan DO Work Phone: [address] [address]Dneonwqedc88-60-4612 10:05-0500Body dbxzos807.34 cmWooster Community Hospital11-05-2024 10:05-0500Body mass index (BMI) [Ratio]31.6 kg/w8MqphxvlhyWooster Community Hospital11-05-2024 10:05-0500Body ltstfo982.68 kgWooster Community Hospital11-05-2024 10:05-0500Diastolic blood kbabjgzo65 mm[Hg][facility]11-05-2024 10:05-0500 Heart rate71 /[facility]11-05-2024 10:05-0500 Respiratory rate12 /[facility]11-05-2024 10:05-0500 Systolic blood ldbqiayf839 mm[Hg][facility]07-01-2024 08:56-0400Blood Pressure LocationPasalvadorgustavo HARDING [facility]07-01-2024 08:56-0400Body rmzyfybvwka51.6 [degF]Jonathan HARDING [facility]07-01-2024 08:56-0400Diastolic blood xeyvyfeg10 mm[Hg]Jonathan HARIDNG [facility]07-01-2024 08:56-0400Heart rate75 /minPatrick HARDING [facility]07-01-2024 08:56-0400Respiratory rate16 /minPatricgustavo HARDING [facility]07-01-2024 08:56-0400Systolic blood exhpdiaq479 mm[Hg]Jonathan HARDING [facility]03-21-2024 10:50-0400Body .34 cmDO Satish Woods Work Phone: [phone] [place], [place] 0623403-21-2024 10:50-0400 Body mass index (BMI) [Ratio]30.7 kg/m2DO Satish Ball Work Phone: [phone] [place], [place] 0623403-21-2024 10:50-0400 Body beemvsesuzg72.5 [degF]DO Satish Ball Work Phone: [phone]03-21-2024 10:50-0400 Body fpskyr71.79 kgDO Satish Ball Work Phone: [phone])523-[address] [place], [place] 0623403-21-2024 10:50-0400 Diastolic blood fatxmfpm56 mm[Hg]DO Satish Ball Work Phone: [phone]03-21-2024 10:50-0400 Heart rate70 /minDO Satish Ball Work Phone: [phone] [place], [place] 8342903-21-2024 10:50-0400 SaO2% (BldA) [Mass fraction]96 %DO Satish Ball Work Phone: [phone])343-[address] [place], [place] 0623403-21-2024 10:50-0400 Systolic blood dwnnxfru540 mm[Hg]DO Satish Ball Work Phone: [phone] [place], [place] 8342912-29-2023 11:07-0500 Diastolic blood mm[Hg]DO Satish Ball Work Phone: [phone] [place], [place] 8342912-29-2023 11:07-0500 Heart rate72 /minDO Satish Ball Work Phone: [phone])[facility] [place], [place] 0623412-29-2023 11:07-0500 Respiratory rate18 /minDO Satish Ball Work Phone: [phone])[facility] [place], [place] 0623412-29-2023 11:07-0500 SaO2% (BldA) [Mass fraction]97 %DO Satish Ball Work Phone: [phone])341-[address] [place], [place] 0623412-29-2023 11:07-0500 Systolic blood hvldcxef776 mm[Hg]DO Satish Ball Work Phone: 1([phone])567-[address] [place], [place] 0623412-29-2023 08:55-0500 Body vcpsug764.34 cmDO Satish Ball Work Phone: [facility]12-29-2023 08:55-0500 Body uicaep17.79 kgDO Satish Ball Work Phone: [facility]12-13-2023 11:41-0500 Body ggfawz054.04 cmBenjamin Ball Other [place] [employer] Other 12-13-2023 11:41-0500Diastolic blood eznfgxvs58 mm[Hg] Satish Ball Other [place] [employer] Other 12-13-2023 11:41-0500Systolic blood vipduhha919 mm[Hg] Satish Ball Other [place] [employer] Other 11-21-2023 11:40-0500Body .04 cmBenjamin Ball Other [place] [employer] Other 11-21-2023 11:40-0500Diastolic blood wloivacv56 mm[Hg] Satish Ball Other [place] [employer] Other 11-21-2023 11:40-0500Systolic blood nommvxzh310 mm[Hg] Satish Ball Other [place] [employer] Other 10-31-2023 10:00-0400Body laqxfz054.04 cmBenjamin Ball Other [place] [employer] Other 10-31-2023 10:00-0400Body mass index (BMI) [Ratio] 27.04 kg/g0Nctphnrv Ball Other [place] [employer] Other 10-31-2023 10:00-0400Body ccihff039.79 kgBenjamin Ball Other [place] [employer] Other 10-31-2023 10:00-0400Diastolic blood cpcahcnw82 mm[Hg] Satish Woods Other [facility] [employer] Other 10-31-2023 10:00-0400Respiratory rate16 /minBentaz Ball Other [facility] [employer] Other 10-31-2023 10:00-0400Systolic blood mm[Hg] Satish Woods Other [facility] [employer] Other 06-30-2023 08:41-0400Blood Pressure LocationPademetria HARDING [facility]06-30-2023 08:41-0400Diastolic blood jbzxrsag22 mm[Hg]Jonathan HARDING [facility]06-30-2023 08:41-0400Heart rate68 /minPatricgustavo HARDING [facility]06-30-2023 08:41-0400Systolic blood tbnazbpv018 mm[Hg]Jonathan HARDING [facility]03-16-2023 11:45-0400Body odwfhl920.04 cmDenise Salas Other [facility] [employer] Other 03-16-2023 11:45-0400Body mass index (BMI) [Ratio] 26.78 kg/p3TmiifyDenise Salas Other [facility] [employer] Other 03-16-2023 11:45-0400Body dymimbcjyoj90.7 [degF]Denise Pierreo Other [employer] Other 03-16-2023 11:45-0400Body .79 kgDenise Danielfeliberto Other [employer] Other 03-16-2023 11:45-0400Diastolic blood xyvarhha15 mm[Hg] Denise Maritza Other [employer] Other 03-16-2023 11:45-3602QbD0% (BldA) [Mass fraction]97 % Denise Maritza Other [employer] Other 03-16-2023 11:45-0400Systolic blood wlyguhpe352 mm[Hg] Denise Maritza Other [employer] Other 03-10-2022 10:45-0500Body gikxwd401.04 cmJasegun Danielfeliberto Other [employer] Other 03-10-2022 10:45-0500Body mass index (BMI) [Ratio] 26.29 kg/k1Aknhiy Rutfeliberto Other [employer] Other 03-10-2022 10:45-0500Body nxdyscahcrq67 [degF]Denise Danielfeliberto Other [employer] Other 03-10-2022 10:45-0500Body zywwmq71.98 kgMauriliosegun Danielfeliberto Other [employer] Other 03-10-2022 10:45-0500Diastolic blood aottfdae12 mm[Hg] Denise Salas Other [facility] [employer] Other 03-10-2022 10:45-8141TzV0% (BldA) [Mass fraction]97 % Denise Salas Other [facility] [employer] Other 03-10-2022 10:45-0500Systolic blood mm[Hg] Denise Salas Other [facility] [employer] Other Encounters Encounter DateEncounter TypeCare ProviderFacilityStart: 08-05-2025 End: 66-00-5721emnbpfvepoGhjfjmyq Ball DO Work Phone: [facility] 08-05-2025 End: 42-19-6111Esskltn encounter procedureBeformerly [facility] hospitalnaveen Woods -[facility] Work Phone: Start: 08-05-2025 End: 48-89-3324Msisfuw encounter statusUnited States Air Force [facility] Clinicnaveen [facility] Centertart: 40-30-9466Eik-patient / Non-visitBeeileen Woods DO-[facility] [employer] Work Phone: Start: 10-30-2024 End: 58-70-3466qznqmyxudgSkwyisljqMer[facility] Health [facility] Work Phone: Start: 10-30-2024 End: 56-39-8562Dfddxft encounter procedureLifecare Hospitals [facility] Work Phone: Start: 08-05-2024 End: 64-91-4059Xivbfg flowsheetChristopher Shannan DO Work Phone: [facility] [address] [address]Start: 08-05-2024 End: 13-01-7696Zdrznf flowsheetChristopher Shannan DO Work Phone: [facility] [address]TEStart: 08-05-2024 End: 42-50-1279Yqgbjf outpatient new 30 minutesChristopher Shannan DO Work Phone: N[facility] ROUTEComment on above:Essential tremor (Primary Dx)Start: 08-05-2024 End: 15-88-7654opjbwrqvynKZFYHUFRXST HASSETTNot AvailableStart: 07-30-2024 End: 71-63-9765jdrzzugmdcYmvtjibph [facility] Work Phone: Start: 07-30-2024 End: 86-50-0537Hxaktyofl for general adult medical examination without abnormal findingsCleveland Clinic Hillcrest Hospitaltart: 07-30-2024 End: 89-98-4661Gwcbyor encounter procedureLifecare Hospitals [facility] Work Phone: Start: 68-43-3927Vxv-patient / Non-visitLifecare Hospitals [facility] Work Phone: Start: 84-85-1066Wnn-patient / Non-visitLifecare Hospitals [facility] [employer] Work Phone: Start: 03-25-2024 End: 55-25-5947murvlhooblIpohhvi R WATERSFacility:[facility] Healthtart: 03-25-2024 End: 88-15-5322Ncyhywa encounter procedureJonathan HARDING [facility] start: 12-14-2023 End: 44-23-6959drydugyvrzQlmswrb T LangenbergFacility:[facility] Hospitaltart: 12-14-2023 End: 44-28-4662vircntnoinQE [facility] Work Phone: [facility] Work Phone: Start: 12-14-2023 End: 34-05-6969Ghjptdo encounter procedureDO Satish Woods Work Phone: [facility] Work Phone: Start: 09-29-2023 End: 30-38-1563icjdaezbqkXiahyxud Ball Other [employer] Other Start: 75-57-4302Hqyhfkfmm encounterBenjamin BallFPG Referral CoordinatorStart: 09-22-2023 End: 71-54-0640fttwxrxjrtUymvnmc J DittyFacility:[facility] [facility]2023 End: 65-03-0831Dlyazeanq to same day surgery centerDO Satish Woods Work Phone: [facility] Work Phone: Start: 09-22-2023 End: 65-29-8805dspjpqgvfnQP Benjamin Ball Work Phone: [facility] Work Phone: Start: 09-06-2023 End: 08-42-2186xnzdwgvdflRauwjsoz Ball Other [employer] Other Start: 08-49-0262Vjbwakelr encounterBenjamin BallFPG Ball Medical ClinicStart: 08-15-2023 End: 50-15-5819sjjdhiagxgAumvisrj Ball Other [employer] Other Start: 14-43-0963Yecqlehwq encounterBenjamin BallFPG [facility] Medical ClinicStart: 08-11-2023 End: 59-88-2440bquruojigcBwfovxze McCormack Other [facility] [employer] Other Start: 65-80-1361Iibryajbd encounterRoldan Lowery [facility] Referral CoordinatorStart: 07-25-2023 End: 79-34-3274duosymttbuLsxewjfz Ball Other [employer] Other Start: 31-32-8969Cummqrttl for general adult medical examination without abnormal findingsBenjamin BallFPG Ball Medical ClinicStart: 49-96-3426Cqzkkcrb preventive med est patient 40-64yrsBeeileen Woods Medical ClinicStart: 07-17-2023 End: 94-92-5679osjqtxfybpItdglpfa Ball Other [employer] Other Start: 48-39-8655Giuianctv for general adult medical examination without abnormal findingsBentaz Woods Medical ClinicStart: 31-29-5782Mznrozlrb encounterBentaz Woods Medical ClinicStart: 03-24-2023 End: 26-84-7504Tzsokyw encounter procedurePatricgustavo HARDING [facility] start: 03-21-2023 End: 04-75-5987dtvfjidrocBlucmcse Ball Other [employer] Other Start: 27-28-2342Tgutxpaxi encounterBeeileen Woods Medical ClinicStart: 31-91-5758Mpidub-up encounterJasegun Mendoza Vascular SurgeryStart: 12-08-2022 End: 58-39-7796ndmatofhgoAV Satish Woods Work Phone: [facility] Work Phone: Start: 12-08-2022 End: 15-69-3908Cfrhkzy encounter procedureDO Satish Woods Work Phone: [facility] [place] Work Phone: Start: 08-01-2022 End: 15-66-8849sivxcnhenzRA SATISH WOODSFacility:A4Zrett: 52-21-5303Hwewf health examinationBeeileen Woods Other [employer] Other Start: 76-05-6813Wkykydxow for general adult medical examination without abnormal findingsDR SATISH WOODSOhioHealth Dublin Methodist Hospitaltart: 07-14-2022 End: 98-46-1514hdsfjsnrnhFK SATISH WOODSFacility:G3Rnpds: 07-14-2022 End: 18-82-6439Eaehavgtq for general adult medical examination without abnormal findingsDR SATISH WOODSFacility:H4Fzgvj: 44-27-0177fismqiupbqYM SATISH WOODS Facility:H1Yejba: 02-23-2022 End: 53-01-0410vmdjcgrgtfZB JONATHANGUIDO HARDINGFacility:H8Codnc: 12-02-2021 End: 23-71-9925wjcrgkbufcLyrjgi Ruttino Other [facility] [employer] Other Start: 03-07-0227Tenhik outpatient visit 15 minutes Denise Berg Vascular Surgery Procedures DateProcedureProcedure DetailPerforming ClinicianStart: 66-75-4107Clwrzxxzd colonoscopyDO Satish Woods Work Phone: Start: 71-10-1057BIT screeningDR ASTISH WOODSComment on above:Performed By: #### PSAD #### [facility] [address] [place] [address] Dr. Krystle CaballeroStart: 55-88-8508Jtuhgwfgsouwmcv guided transrectal cryoablation of prostatePatricgustavo HARDING Start: 99-21-1900ElknkwzpxZiuxwrzb Ball Other Start: 52-47-7751Cyzgcql examination of patient Satish Woods Other ColonoscopyPatrick NELLI Depression screeningBeeileen Woods Other Hernia repairPatrick HARDING TonsillectomyPatrick geolad Plan of Treatment DateCare ActivityDetailAuthorStart: 02-11-2025 End: 35-24-8566Mjcktrl encounter ocwlpbgxq49/20/2025 9:40 AM EDT Office Visit [facility] [address] [place] [phone] Zafar Darlene, [employer]PECTOR [address] [place] [address] [facility] R[facility]TEStart: 05-26-2024 Influenza vaccinationInfluenza Vaccine (#1)[facility] HealthcareStart: 02-02-2024 Pneumococcal Vaccine: 65+ Years (1 of 1 - PCV)Pneumococcal Vaccine: 65+ Years (1 of 1 - PCV)[facility] HealthcareStart: 27-38-2168LdkijfvedWooster Community Hospital Start: 50-41-4187Mbsji brachial pressure indexWooster Community Hospital Start: 75-37-9401Vpfobgpwg for malignant neoplasm of colonNOMS HealthcarePatient EducationHemorrhoids (DC)[facility] Work Phone: Immunizations Immunization DateImmunizationNotesCare NidyulizBultqtdg57-82-5534GQVR-YtC-2 (COVID-19) mRNA BNT-162b2 [employer] [facility]03-05-2021SARS-CoV-2 (COVID-19) mRNA BNT-162b2 [employer] [facility]02-12-2021SARS-CoV-2 (COVID-19) mRNA BNT-162b2 [employer] [facility]01-14-2014meningococcal oligosaccharide (groups A, C, Y and W-135) diphtheria toxoid conjugate vaccine (MCV4O)Satish Woods Other [facility] Payers DatePayer CategoryPayerPolicy ID2024MedicareMEDICARE [id number] [id number] Health InsuranceCL[facility] COUNTY [facility] ASSOCIATION OF [employer] [id number] 35-96-4022Leadjxm Health [id number] 2.8.246168.6800-01-1960 Private Health [id number]-[id number] 2..1.065110.3.57[id number] 2..1.553687.3.57[id number] 2..1.116585.3.57[id number] 2..1.436195.3.57[id number] 2..1.885123.3.579.[id number] 2..1.97[id number] 2.16.840.1.012998.3.579.2.531 [id number] 2.16.840.1.53[id number] [id number]-[id number] Social History DateTypeDetailFacilitySex Assigned At [facility]tart: 44-00-6415Ornvanu smoking status NHISCurrent some day smokerCleveland Clinic Hillcrest Hospitaltart: 59-02-8393Fvc Assigned At [facility]art: 03-24-2023 End: 84-20-0767Itpkvgx smoking statusEx-smoker (finding)[facility] CenterTobacc smoking status NHISTobacco smoking consumption unknownS[facility] HealthcareStart: 74-18-3996Yeq assigned at birthNot on fileS[facility] HealthcareStart: 41-73-4026QcyHukk (finding)[facility] Medical Equipment Procedure CodeEquipment CodeEquipment Original TextEquipment IdentifierDates Multiple peripheral artery stent, bare-metal ([id number] FDAStart: 11-03-2020 Goals DatePatient GoalDesired Activity/State Functional Status JvssJjdqkmpswcCypwvlMxvjrklu40-46-4520Lgllorublk StatusN/AExec[facility]06-30-2023Functional StatusN/A[facility] Clinical Notes 10-26-2020 to 08-05-2024 Note Date & UwmkXabiFpokrkav43-58-6467 History of Present illness Narrative* Niko Campbell DO - 08/05/2024 9:30 AM EST Images from the original note were not included. Chief Complaint: Tremor Subjective Bakari Harvey David, 64 y.o., male Bakari presents today for neurological consulation at the request of Dr. Satish Ball, Do for Tremor. [place] [facility] [place] for [...] consulation at the request of Dr. Satish Woods, for Tremor. [place] [facility] [place] 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 RLE Strength illopsoas, quadriceps, tibialis [...] reflex 2+ . Porter's sign negative. Coordination: Yohwsp-lq-xnlv testing and rapid alternating movements are normal [...] plan, and return instructions documented in this encounterPerry County Memorial HospitalZzwfvvjthe79-80-4354 Evaluation + Plan note Diagnostic Tests Pending * PSA Total 03/25/24 [facility] 07-01-2024 Hospital Discharge instructions Patient Education 03/25/2024 [...] treatment? Where to find more information The [place] [employer]: www.cancer.org [place] [employer] Association: www.auanet.org Contact a health care [...] provider. Document Revised: 03/07/2022 Document Reviewed: 03/07/2022 [employer] Patient Education 2022 [employer]. Follow Up Care 03/24/2023 09:39:34 With:NELLI NGUYEN, Jonathan Hudson, URL Address: [facility] [address] [place] [address]- [phone] When: Unknown [facility] 07-01-2024 NotePatient Education Oncology Prostate Cancer Screening [...] Where to find more information ? The [place] [employer]: www.cancer.org ? [place] [employer] Association: www.auanet.org Contact a health care [...] front of the rectum. (more content not included)...[facility]12-29-2023 Procedure noteWooster Community Hospital10-31-2023 Evaluation note* Encounter Date Diagnosis Assessment Notes Treatment Notes Treatment Clinical Notes Jun, Wellness examination (ICD-10 - Z 00.00) Healthy diet and exercise. Reviewed age-appropriate preventive testing recommended. Jun,therosclerosis of [place] arteries of extremities with intermittent claudication, left [...] He denies abdominal pain, melena or hematochezia. [employer] Other 10-23-2023 Evaluation note* Encounter Date Diagnosis Assessment Notes Treatment Notes Treatment Clinical Notes Jun, Elevated cholesterol (ICD-10 - E 78.00) Jun,Wellness examination (ICD-10 - Z00.00) Jun,therosclerosis of [place] arteries of extremities with intermittent claudication, left leg (ICD-10 - I70.212)Continue statin. Monitor BP closely. ASA 81mg daily. Walk frequently. Inspect feet daily for cuts and calluses. Jun,Screening PSA (prostate specific antigen) (ICD-10 - Z12.5) Jun,High risk medication use (ICD-10 - Z79.899) [employer] Other 06-30-2023 Hospital Discharge instructions Patient Education [...] urethra. Follow these instructions at home: Take giai-ddp-eqzpkrt and prescription medicines only as told by [...] provider. Document Revised: 03/30/2022 Document Reviewed: 03/30/2022 [employer] Patient Education 2022 [employer]. Follow Up Care 03/02/2022 13:54:44 With:NELLI NGUYEN, Jonathan Hudson, URL Address: [address] [place], [place] [id number]- When:Within 1 Year(s) Comments:w/MATTHEW [facility] 03-16-2023 Evaluation note* Encounter Date Diagnosis Assessment [...] the meantime with any issues or concerns. [employer] Other 03-10-2022 Evaluation note* Encounter Date Diagnosis [...] with this plan, and denies any questions. [employer] Other 2021 History general Narrative - Reported* Type Description Date Medical History ATHEROSLEROSIS LEFT LEFT LEG Surgical HistorytonsillectomySurgical Historyhernia repair X 2Surgical History cyst removal RIGHT FOOTSurgical HistoryLLE angioplasty and stent10/2020 Hospitalization Historytonsillectomy [employer] Other 2021 History general Narrative - Reported* Type Description Date Medical History ATHEROSLEROSIS LEFT LEFT LEG Surgical HistorytonsillectomySurgical Historyhernia repair X 2Surgical History cyst removal RIGHT FOOTSurgical HistoryLLE angioplasty and stenturgical IcrauslHbspnrddpsi01/2012Hospitalization Historytonsillectomy [employer] Other 2021 History general Narrative - Reported* Type Description Date Medical History ATHEROSLEROSIS LEFT LEFT LEG Surgical HistorytonsillectomySurgical Historyhernia repair X 2Surgical History cyst removal RIGHT FOOTSurgical HistoryLLE angioplasty and stenturgical BeggmdvJowzpcvuica22/2012Surgical HistoryColonoscopy09/2022Hospitalization Historytonsillectomy [employer] Other Evaluation + Plan note Future Appointments Appointment Date:03/25/2024 08:45:00 AM Scheduled Provider:Jonathan HARDING MD Location:[facility] Appointment Type:URO Office Visit Diagnostic Tests Pending * PSA Total 03/24/23 [facility] evaluation noteNo assessment information available [facility] Work Phone: Evaluation noteNo InformationNort [employer] Other Evaluation note* Diagnosis Onset Date Resolution Status PAD (peripheral artery disease) acute [facility] Work Phone: Evaluation note* Diagnosis Onset Date Resolution Status Hypercholesterolemia acuteNicotine addictionacutePeripheral vascular diseaseacuteScreening PSA (prostate specific antigen)acuteWelcome to Medicare preventive visitnoneactive [facility] Work Phone: Evaluation note* Diagnosis Essential tremor- Primary documented in this encounter [facility] HealthcareEvaluation note* Diagnosis Onset Date Resolution Status Admit Date Essential tremor acuteFebruary 2024 9:53amHypercholesterolemiaacuteFebruary 2024 9:53am Nicotine addictionacuteFebruary 2024 9:53amPeripheral vascular diseaseacute February 2024 9:53am [facility] Work Phone: Evaluation note* Diagnosis Onset Date Resolution Status Admit Date Essential tremor acuteAugust 05, 2025 9:59amGERD (gastroesophageal reflux disease)acute August 05, 2025 9:59amHypercholesterolemiaacuteNovember 2024 9:59am Nicotine addictionacuteAugust 05, 2025 9:59amPeripheral vascular disease acuteAugust 05, 2025 9:59amScreening PSA (prostate specific antigen)acute August 05, 2025 9:59amWelcome to Medicare preventive visitnoneactiveAugust 05, 2025 9:59am [facility] Work Phone: History and physical note Author Alex Blevins [facility] September 22, 2023 10:19amNote Date/TimeDecember 2022 10:19[place] [address] Gastroenterology H&P Signed Patient: Bakari Hernandez MR#: [id number] : 1960 Acct:[id number] Age/Sex: 63 / M Adm Date: 3 Loc: Room: Type: [facility] Attending Dr: Alex Blevins MD Copies [...] signed by Alex Blevins MD> 09/22/23 1019 [facility] Work Phone: Hospital course Narrative No data available for this section [facility] Hospital Discharge instructions Additional Instructions DISCHARGE INSTRUCTIONS [...] years. -Follow up with PCP. -Office number [phone].[facility] Work Phone: Progress note No data available for this section [facility] reason for referral (narrative)No reason for referral information availableSt. Elizabeth Hospital Work Phone: Reason for visit Narrative* Consultation (Routine) - ClosedSpecialtyDiagnoses / ProceduresReferred By ContactReferred To Contact Neurology Diagnoses Essential tremor Procedures CO OFFICE/OUTPATIENT [facility] 30 MINUTES Satish Woods MD [address] [place] [address] Phone: tel: fax: Daniel Irby MD [address] [place] [address] Phone: tel: fax: Referral IDStatusReasonStart DateExpiration DateVisits RequestedVisits [id number] Consult and Treat / [facility] Healthcare Summary Purpose Family History Relationship Condition Age at Onset Recorded Date/T juan lius father Unknown Malignant neoplasmUnknownNot SpecifiedHypertensionUnknownsisterMalignant neoplasm of [...] 9 :53am Peripheral vascular disease October 9:53am Chief Complaint Admit Date wellness August 05, 2025 9:59am Reason for Visit Admit Date Essential tremor August 05, 2025 9:59am GERD (gastroesophageal reflux disease) N ovember 2024 9:59am Hypercholesterolemia August 05, 2025 9:59am Nicotine addiction August 05, 2025 9:59am Peripheral vascular disease July 9:59am Screening PSA (prostate specific antigen ) August 05, 2025 9:59am Welcome to Medicare preventive visit Nov emb2024 9:59am Reason for Referral Reason *Waiting for appt Mr. Hernandez is being referred for screening colonoscopy, his last colonoscopy was in 2012. Diagnosis 1 Colon cancer screeni ng (Z12.11) Referral Organization [facility] Chuck owens Referring Provider First Name Satish Referring Provider Last Name Chuck Referring Provider Specialty Internal Me dicine Referred Organization [facility] Gastroenterolo gy Referred Provider Alex Blevins Referred Address [address],[address] Referred Provider Specialty Gastroentero logy Referral Priority [...] VASC 6 MONTH FU; [facility] SAME MORNING1 YR FOLLOW UP; [facility] 9:45ALab ResultsLabsWELLNESSMAIL PPWBP CheckBP readingGI OPERATIVE REPORT (unrecognized sect ion and content) No Status Records FoundNo Status Records FoundNo Status Records FoundNo Status Records Found INFORMATION SOURCE (unrecogn ized section and content) DATE CREATED AUTHOR 09/17/2022 [facility] DATE CREATED AUTHOR AUTHOR'S ORGANIZ ATION 12/26/2023 [facility] DATE CREATED AUTHOR AUTHOR'S ORGANIZ ATION 05/02/2024 [facility] DATE CREATED AUTHOR AUTHOR'S ORGANIZ ATION 08/06/2024 [facility] EPIC Care Teams [...] DO Primary Care Provider Active Denise Salas G[employer] INSPECTOR-CAttending ProviderActive Team Status: Inactive Member Role Status [...] Start: December 14, 2023 End: December 14, 2023MaJj Maddox ProviderActiveStart: December 14, 2023 End: December 14, 2023Team MemberRelationshipSpecialtyStart DateEnd Date Satish Woods MD [address] [place] [id number] PCP - [facility]07/31/24Team MemberRelationshipSpecialtyStart Date End Date Satish Woods MD [address] [place] [address] PCP - [facility]07/31/24 Team Status: Active Member Role/Relationship Status Dates Satish Woods DO Primary Care Provider Active Team Status: Active Member Role/Relationship Status Dates Satish Woods DO Primary Care Provider Active Start: July 29, 2025 Latosha Cunha ProviderActiveStart: July 29, 2025 Team Status: Inactive Member Role/Relationship Status Dates Satish Woods DO Primary Care Provider Active Start: August 05, 2025 End: August 05enjaLatosha Justin ProviderActiveStart: August 05, 2025 End: August 05, 2025 Goals (unrecognized section and content) Goals may [...] BE BASED ON THE PRIMARY CLINICAL RECORDS. [facility]. provides no warranty or guarantee of the accuracy or completeness of information in this document.
== END 2025-08-12 09:55 | disposition home or self-care (01) ==
LOC: CT 09:54
PROVIDERS: PCP Internal Medicine; Visit Provider Internal Medicine
DX: Z87.891 Personal history of nicotine dependence (principal)
CPT/HCPCS: 71271